=== PATIENT | female | born 1955 | race Caucasian/White ===

== ENCOUNTER 2016-10-29 07:33 | Inpatient (IN) ==
[2016-10-29] MEDS ORDERED: *HR* Midazolam HCl 2 MG/2 ML VIAL ONE ×2 (07:44→09:31)
[2016-10-29] MEDS ORDERED: Verapamil 5 MG/2 ML VIAL ONE (07:45)
[2016-10-29] MEDS ORDERED: *HR* FentaNYL (PF) 100 MCG/2 ML VIAL ONE (07:45)
[2016-10-29] MEDS ORDERED: 0.9 % Sodium Chloride 1,000 ML ONE (07:46)
[2016-10-29] MEDS ORDERED: *HR* Heparin 10,000 UNIT/10 ML VIAL ONE (07:46)
[2016-10-29] MEDS ORDERED: Heparin 1,000 UNITS/500 mL NS 500 ML ONE (07:46)
[2016-10-29] MEDS ORDERED: Nitroglycerin 1,000 MCG/10 ML VIAL IV ONE (07:46)
[2016-10-29] MEDS ORDERED: 0.9 % Sodium Chloride 1,000 ML IVC SCH (08:00)
--- NOTE | 2016-10-29 09:18 | Pre-Sedation Evaluation ---
Pre-sedation evaluation - Pre-sedation checklist Date of procedure: 10/29/16 Procedure: LEFT HEART CATH Recent Vitals: Last Vital Signs Temp 96.3 F L 10/29/16 08:02 Pulse 75 10/29/16 08:02 Resp 18 10/29/16 08:02 BP 150/71 10/29/16 08:02 Pulse Ox 98 10/29/16 08:02 H&P (including ROS) documented in medical record: Yes Previous reaction to sedatives/anesthetics: No Dietary Status: NPO after Midnight Dentition: poor dentition ASA Classification *see protocol: CLASS II-Mild systemic disease Plan of Care: Pt appropriate candidate for procedure/moderate/conscious sedation , Risks/benefits of procedure/sedation discussed w/ patient/family
--- NOTE | 2016-10-29 09:19 | History & Physical Report ---
Date of Encounter: 10/29/16 Time of Encounter: 09:00 24 Hour HP Update - Instructions Instructions: If the History and Physical is less than 30 days old and was completed prior to A.M. admission and or procedure and has NOT been updated on calendar day of procedure please complete this update prior to performing procedure. - Update Patient reports changes in Medical Condition: No Changes in assessment/condition: No Changes in Medication: No Preop tests/diagnostics Reviewed: Yes Surgery Remains Indicated: Yes Consent for Planned Operative Procedure(s) Verified: Yes
[2016-10-29] MEDS ORDERED: Nitroglycerin Spray 4.9 GM BOTTLE ONE (09:30)
--- NOTE | 2016-10-29 11:25 | Invasive Diagnostic Lab Proc ---
Name: Mali Rosales Date of Study: 10/29/2016 Date: 1955 Ht: 63.0in Medical Record#: [id number] Age: 61 Wt: 320.77lb Gender: Female BSA: 2.36 Order #: [id number] BMI: 56.84 Physicians Procedure Physician: Vijay Goins MD, FACC Referring MD: John Lerner CNP Referring MD: Staff Name Position Time In aJnettShannan RN Credentialer 09:19 AM Ginger Gama RT (R) Monitor 09:19 AM Ainsley Villafuerte RT (R) Scrub 09:19 AM Indications Indication Abnormal Test - Stress Procedures Performed Procedure L HRT ARTERY/VENTRICLE ANGIO Pre-Procedure Checklist Informed consent is complete signed and on chart. H\\T\\P is on chart. ID band is on and ID verified with patient. Patient NPO for procedure The procedure was described for the patient and questions were answered. Blood Pressure: 150/71 ECG is on chart. Rhythm: NSR Plan of Care Patient will tolerate the procedure without complications. Adequate level of comfort will be maintained. Hemodynamics will remain stable Patient will recover from procedure without complications. Respiratory function will be maintained. Cardiac rhythm will remain stable. Patient temperature will be maintained. Patient and/or family have verbalized understanding of the procedure. Patient Education Chief Complaint/Reason for Test: Cardiac Cath Developmental Category: Adult (18-64 years) Developmentally Appropriate for Age: Yes Learning Barriers: None Education Needs: Procedure Education Method: Verbal Information Taught: Cardiac Cath Educational Evaluation: Able to repeat information Intravenous Access Time IV Size Location DC'd Fluid/Drip Rate Units RN 08:18 AM Started with 20g 1 1/4" Lt Antecubital 0.9NaCl 50 ml/hr Laxmi Crouch RT Allergies NKDA Vital Signs Time BP (mmHg) HR (bpm) O2 Sat. RR (bpm) LOC 08:19 AM 150 / 71 75 99 % 22 5 = Fully awake and oriented or at pre-proc level 09:20 AM / % 4 = Oriented but drowsy 09:20 AM / % 4 = Oriented but drowsy 09:35 AM / % 4 = Oriented but drowsy 09:17 AM 162 / 78 82 99 % 09:20 AM 158 / 77 82 100 % 43 09:25 AM 152 / 67 77 99 % 26 09:30 AM 159 / 69 78 100 % 28 09:35 AM 150 / 65 80 97 % 20 09:40 AM 137 / 61 80 96 % 20 09:46 AM 158 / 63 81 96 % 10 09:51 AM 162 / 68 78 98 % 21 09:55 AM 157 / 64 78 97 % 18 09:50 AM / % 4 = Oriented but drowsy 10:15 AM 155 / 70 76 96 % 16 4 = Oriented but drowsy 10:30 AM 140 / 63 71 98 % 15 5 = Fully awake and oriented or at pre-proc level 10:45 AM 179 / 83 80 100 % 13 5 = Fully awake and oriented or at pre-proc level 11:00 AM 131 / 63 80 99 % 13 5 = Fully awake and oriented or at pre-proc level 11:15 AM 129 / 62 79 99 % 18 5 = Fully awake and oriented or at pre-proc level Procedural Medications Time Medication Dose Units Method Given By 09:19 AM Oxygen 2 L/min nasal cannula Ginger Gama RT (R) 09:20 AM Versed 2 mg Intravenous BensonhaShannan mitchell RN 09:20 AM Fentanyl 25 mcg Intravenous BensonShannan lomax RN 09:29 AM Versed 1 mg Intravenous BensonhaShannan mitchell RN 09:29 AM Fentanyl 25 mcg Intravenous BenShannan gresham RN 09:30 AM Nitroglycerin 0.04 mcg Sublingual BensonShannan lomax RN 09:30 AM Lidocaine 2% 0.5 ml Subcutaneous Vijay Goins MD, FACC 09:37 AM Versed 1 mg Intravenous Shannan Rowland RN 09:37 AM Fentanyl 25 mcg Intravenous BenShannan gresham RN 09:38 AM Heparin 4000 units Nitroglycerin 200 mcg Verapamil 2.5 mg Intraarterial Vijay Goins MD, FACC 09:47 AM Lidocaine 2% 19 ml Subcutaneous Vijay Goins MD, FACC ASA Classification: CLASS II- Mild systemic disease (i.e. well-controlled diabetes, hypertension, asthma, cigarette smoking) Zena Score Preprocedure Postprocedure Activity 2- Moves 4 extremities sustained head lift Activity 2- Moves 4 extremities sustained head lift Circulation 2- SBP +/= 20 points of pre-anesthetic level Circulation 2- SBP +/= 20 points of pre-anesthetic level Consciousness 2- Awake and alert oriented x 3 Consciousness 2- Awake and alert oriented x 3 O2 Saturation 2- Able to maintain O2 satruation of 92% on room air O2 Saturation 2- Able to maintain O2 satruation of 92% on room air Respiratory 2- Able to deep breathe and cough well Respiratory 2- Able to deep breathe and cough well Total Score 10 Total Score 10 Contrast Agent: Isovue Diagnostic Contrast: 65 ml Total Contrast: 65 ml Fluoro Dose: 318 mGy Procedure Log Time Note Enter By 08:23 AM Risk for fall? Yes, Medications (change in amt./frequency,newly prescribed,potential combinations) [email or web address] 08:23 AM Evidence of mental, physical, or emotional abuse? No [email or web address] 08:23 AM Does patient have suicidal ideations? No [email or web address] 09:12 AM Pt arrived to orthodontic laboratory technician 2 at 09:12 [email or web address] 09:12 AM Physician arrived 09:12 [email or web address] 09:12 AM Matthew and paige completed [email or web address] 09:12 AM Sign in performed according to hospital policy. [email or web address] 09:12 AM Procedure start 09:12 [email or web address] 09:14 AM CathStat 09:15 AM Vitals capture started with the following parameters, Patient=Adult, Interval=5 min, Initial Tapelplv=580 mmHg, Deflation Rate=5 mmHg, Cuff placed on Left Arm 09:17 AM HR=82 bpm, EZZR=042/78 mmhg, SpO2=99.0 %, Comment=NSR 09:19 AM Recorded ECG: HR=79 Condition=Condition 1 09:19 AM Patient charges- Angio tray pack, Navilyst 3mm J, Pulse Oximetry and ACIST tubing and transducer [email or web address] 09:19 AM Patient charges- Angio tray pack, Navilyst 3mm J, Pulse Oximetry and ACIST tubing and transducer [email or web address] 09:19 AM Shannan Rowland RN Position: Credentialer Time in: 09:19 [email or web address] 09:19 AM Ginger Gama RT (R) Position: Monitor Time in: 09:19 [email or web address] 09:19 AM Ainsley Villafuerte RT (R) Position: Scrub Time in: 09:19 [email or web address] 09:20 AM Time: 09:19 Oxygen on at 2 L/min per nasal cannula by Ginger Gama RT (R) [email or web address] 09:20 AM Time: 09:20 Versed 2 mg Intravenous Given by Shannan Rowland RN [email or web address] 09:20 AM Time: 09:20 Fentanyl 25 mcg Intravenous Given by Shannan Rowland RN [email or web address] 09:20 AM Time: 09:20 Patient comfortable and pain free: Yes [email or web address] 09:20 AM Time: 09:20LOC: 4 = Oriented but drowsy [email or web address] 09:20 AM HR=82 bpm, QZQH=708/77 mmhg, DsF9=639.0 %, Resp=43 B/min, Comment=NSR 09:22 AM ASA Class CLASS II- Mild systemic disease (i.e. well-controlled diabetes, hypertension, asthma, cigarette smoking) [email or web address] 09:25 AM HR=77 bpm, HPJK=924/67 mmhg, SpO2=99.0 %, Resp=26 B/min, Comment=NSR 09:27 AM Pressure channel 1 zeroed. 09:29 AM Time out performed according to hospital policy [email or web address] 09:29 AM Time: 09:29 Versed 1 mg Intravenous Given by Shannan Rowland RN [email or web address] 09:30 AM Time: 09:29 Fentanyl 25 mcg Intravenous Given by Shannan Rwoland RN [email or web address] 09:30 AM Time: 09:30 Nitroglycerin 0.04 mcg Sublingual Given by Shannan Rowland RN [email or web address] 09:30 AM Time: 09:30 0.5 ml Lidocaine 2% to right radial Subcutaneous Given by Vijay Goins MD, [facility] [email or web address] 09:30 AM HR=78 bpm, FKDC=760/69 mmhg, LeX4=602.0 %, Resp=28 B/min, Comment=NSR 09:31 AM Unsuccessful access attempt # 1 into the right Radial artery. Manual pressure applied to achieve hemostasis.. [email or web address] 09:33 AM Unsuccessful access attempt # 2 into the right Radial artery. Manual pressure applied to achieve hemostasis.. [email or web address] 09:35 AM Time: 09:20 Patient comfortable and pain free: Yes [email or web address] 09:35 AM Time: 09:20LOC: 4 = Oriented but drowsy [email or web address] 09:35 AM HR=80 bpm, ZLJR=106/65 mmhg, SpO2=97.0 %, Resp=20 B/min, Comment=NSR 09:35 AM Ultrasound used to obtain access. [email or web address] 09:37 AM Time: 09:37 Versed 1 mg Intravenous Given by Shannan Rowland RN [email or web address] 09:37 AM Time: 09:37 Fentanyl 25 mcg Intravenous Given by Shannan Rowland RN [email or web address] 09:38 AM Access obtained by percutaneous puncture. 5Fr 10cm Terumo Glidesheath sheath placed in right Radial artery. [id number] [email or web address] 09:38 AM Time: 09:38 Patient given 4,000 units Heparin, 200 mcg Nitroglycerin, and 2.5 mg Verapamil Intraarterial by Vijay Goins MD, [facility] [email or web address] 09:38 AM 0.035 260cm Navilyst 3mmJ wire [id number] [email or web address] 09:39 AM 5Fr TIG catheter inserted over the wire DN [email or web address] 09:40 AM Wire removed [email or web address] 09:40 AM 0.035 260cm Bentson wire [id number] [email or web address] 09:40 AM HR=80 bpm, BKEQ=509/61 mmhg, SpO2=96.0 %, Resp=20 B/min, Comment=NSR 09:42 AM Catheter removed [email or web address] 09:42 AM Wire removed [email or web address] 09:42 AM Cannot use radial access for patient per Dr. Goins. [email or web address] 09:45 AM Prepping groin for access. [email or web address] 09:45 AM Pressure channel 1 zeroed. 09:46 AM HR=81 bpm, SOKY=402/63 mmhg, SpO2=96.0 %, Resp=10 B/min, Comment=NSR 09:47 AM Time: 09:47 19 ml Lidocaine 2% to right groin Subcutaneous Given by Vijay Goins MD, [facility] [email or web address] 09:48 AM Access obtained by percutaneous puncture. 5Fr 10cm Terumo [place] sheath placed in right Femoral artery. [id number] [email or web address] 09:49 AM 5Fr FL 4 catheter inserted over the wire DN [email or web address] 09:49 AM Pressure channel 1 zeroed. 09:49 AM LCA angiography performed in multiple views. [email or web address] 09:50 AM Time: 09:35 Patient comfortable and pain free: Yes [email or web address] 09:50 AM Time: 09:35LOC: 4 = Oriented but drowsy [email or web address] 09:50 AM Recorded Pressure: Ao, HR=79, Condition=Condition 1 (Aorta) Ao 129/90/109 09:51 AM Recorded Pressure: Ao, HR=79, Condition=Condition 1 (Aorta) Ao 131/94/112 09:51 AM HR=78 bpm, YRPQ=493/68 mmhg, SpO2=98.0 %, Resp=21 B/min, Comment=NSR 09:52 AM Catheter removed [email or web address] 09:53 AM Lesion found in LMCA. Pre Stenosis: 40 Pre ZUNILDA Flow: [email or web address] 09:53 AM 5Fr FR 4 catheter inserted over the wire DNC [email or web address] 09:53 AM Recorded Pressure: Ao, HR=77, Condition=Condition 1 (Aorta) Ao 136/98/116 09:53 AM Coronary Dominance: right [email or web address] 09:54 AM RCA angiography performed in multiple views. [email or web address] 09:54 AM Catheter removed [email or web address] 09:54 AM Lesion found in Mid RCA. Pre Stenosis: 15 Pre ZUNILDA Flow: [email or web address] 09:54 AM Lesion found in Right PDA. Pre Stenosis: 15 Pre ZUNILDA Flow: [email or web address] 09:54 AM 5Fr Pigtail catheter inserted over the wire DN [email or web address] 09:54 AM Catheter selectively placed in left ventricle [email or web address] 09:54 AM Bolus angiogram of left Ventricle complete: 11 ml/sec for a total of 33 mls [email or web address] 09:55 AM Pressure channel 1 zeroed. 09:55 AM Recorded Pressure: LV, HR=78, Condition=Condition 1 (Left Ventricle) LV 137/-7/2 09:55 AM HR=78 bpm, IHOX=341/64 mmhg, SpO2=97.0 %, Resp=18 B/min, Comment=NSR 09:56 AM Recorded Pressure: LV, Ao, HR=77, Condition=Condition 1 (Left Ventricle) LV 71/70/66, (Aorta) Ao 137/68/98 09:57 AM Catheter removed [email or web address] 09:57 AM Bolus angiogram of right Femoral complete: 4 ml/sec for a total of 7 mls [email or web address] 09:59 AM Procedure completed at 09:59 [email or web address] 09:59 AM Sign out completed: Radiation Dose 318.40 mGy Fluoro Time: 1.6 Isovue 370 - 200ml contrast 65 ml given by Vijay Goins MD, [facility]. Complications: NoneCardiac Rehab Consult needed: YesConfirmed administered medications: Yes [email or web address] 09:59 AM Isovue 370 - 200ml,1 Bottle(s) used. [email or web address] 09:59 AM Arterial sheath pulled, Mynx closure device used and was Successful S/N. [email or web address] 09:59 AM Post ECG NSR [email or web address] 10:00 AM Post Blood Pressure 157/64 [email or web address] 10:00 AM Information taught Cardiac Cath and Mynx [email or web address] 10:00 AM Education needs Procedure, Plan of Care, and Disease Process [email or web address] 10:00 AM Learning barriers :None [email or web address] 10:00 AM Education Methods Verbal [email or web address] 10:00 AM Education evaluation Able to repeat information [email or web address] 10:04 AM Site status No bleeding/hematoma - Rt Groin as reported by Ainsley Villafuerte RT (R) at 10:04 [email or web address] 10:04 AM Delay to floor No [email or web address] 10:04 AM Family placed in holding area. [email or web address] 10:04 AM Complications: None [email or web address] 10:05 AM 12 ml air in Vasc Band. [email or web address] 10:05 AM Time: 09:50LOC: 4 = Oriented but drowsy [email or web address] 10:05 AM Time: 09:50 Patient comfortable and pain free: Yes [email or web address] 10:07 AM Report given to Shauna RN Pt taken to Holding room Room #1. 10:07 [email or web address] 10:07 AM Patient out of room: 10:07 [email or web address] 10:16 AM pt resting comfortably in holding room call light within reach family at bedside [email or web address] 10:[address] Goins in to speak with patient and family. [email or web address] 10:[address] Rainey in to speak to family and patient. piper 11:03 AM Patient to be admitted, awaiting bed management for bed assignment [email or web address] 11:17 AM Report given to Dana RN Pt taken to E Room #26. 11:17 piper 11:18 AM Delay to floor No [email or web address] 11:18 AM Complications: None [email or web address] 11:18 AM Patient out of room: 11:18 kwitte Complications Complication None None None Hemodynamics Pressures Site Systolic/A Wave Diastolic/V Wave Mean AO 129 90 109 AO 131 94 112 AO 136 98 116 LV 137 -7 2 LV 71 70 66 AO 137 68 98 Post Procedure Information Blood Pressure: 157/64 mmHg Rhythm: NSR Post procedural instructions were given Surgery consult for CABG Closure Device Time Device Success/Fail 10/29/2016 10:03:00 AM MynxGrip Yes 10/29/2016 10:05:00 AM Mechanical Compression Yes 10/29/2016 11:00:00 PM Site Checks Time Location Status Staff Sheath In? Note 10:04 AM Rt Groin No bleeding/hematoma Araceli Villafuertea RT (R) 10:05 AM Rt Wrist No bleeding/ No Hematoma Christo Ainsley RT (R) 10:15 AM Rt Wrist No bleeding/ No Hematoma Sites, Ainsley RT (R) 10:15 AM Rt Groin No bleeding/ No Hematoma Sites, Ainsley RT (R) 10:30 AM Rt Groin No bleeding/ No Hematoma Shauna Georges RN 10:30 AM Rt Wrist No bleeding/ No Hematoma Shauna Georges RN 10:45 AM Rt Groin No bleeding/ No Hematoma Shauna Georges RN 10:45 AM Rt Wrist No bleeding/ No Hematoma Shauna Georges RN 2ml of air removed from band 11:00 AM Rt Groin No bleeding/ No Hematoma Shauna Georges RN 11:00 AM Rt Wrist No bleeding/ No Hematoma Shauna Georges RN 2ml of air removed from band 11:15 AM Rt Wrist No bleeding/ No Hematoma Russel Irby RN 2 ml air deflated 11:15 AM Rt Groin No bleeding/ No Hematoma Russel Irby RN Pulses Time Site Pre-Procedure Post-Procedure Note 10/29/2016 8:18:00 AM Bilateral DP \\T\\ PT 1+ 10/29/2016 8:19:00 AM Bilateral radial 2+ 10/29/2016 10:15:00 AM Bilateral DP \\T\\ PT 1+ 10/29/2016 10:15:00 AM Bilateral radial 2+ 10/29/2016 10:30:00 AM Bilateral DP \\T\\ PT 1+ 10/29/2016 10:30:00 AM Rt Radial 2+ 10/29/2016 10:45:00 AM Bilateral DP \\T\\ PT 1+ 10/29/2016 10:45:00 AM Rt Radial 2+ 10/29/2016 11:00:00 AM Rt Radial 2+ 10/29/2016 11:00:00 AM Bilateral DP \\T\\ PT 1+ 10/29/2016 11:15:00 AM Rt wrist 2+ 10/29/2016 11:15:00 AM Bilateral DP \\T\\ PT 1+ Updated by Russel Irby RN on 10/29/2016 11:18:53 AM Russel Irby RN electronically signed on 10/29/2016 11:19:45 AM with status of Final
--- NOTE | 2016-10-29 12:11 | Cardiothoracic Consult Note ---
Date of Encounter: 10/29/16 Time of Encounter: 12:07 Assessment and Plan (1) Coronary artery disease Current Visit: Yes Status: Acute The assessment and plan as outlined above was discussed with the patient and/or family members who expressed understanding and agreement. All questions were answered. The patient is a candidate for coronary artery bypass grafting. This would include a RUIZ graft to her LAD. She could also have a saphenous vein graft to her diagonal and/or intermediate branch if they are large enough. She has been on Plavix and we will stop this. I will check an echocardiogram. Risks of surgery include , infection, stroke, bleeding, cardiac tamponade, myocardial infarction, renal or respiratory failure, acute or chronic graft closure, phrenic nerve injury and sternal dehiscence. The procedure, its risks benefits and alternatives were explained and she does wish to proceed. She was admitted to the hospital and will need to stay because of a tight 99% LAD lesion. She is tentatively scheduled for November 05. Qualifiers: Coronary Disease-Associated Artery/Lesion type: [place] artery [place] vs. transplanted heart: [place] heart Associated angina: with stable angina Qualified Code(s): I25.118 - Atherosclerotic heart disease of [place] coronary artery with other forms of angina pectoris - History of Present Illness History of present illness: Ms. Rosales is a 61 year old female History of present illness. Patient is a 61-year-old female who presented with a positive stress test. She did have a myocardial infarction in 2012 and also had stents placed in 2012. Cardiac catheterization done today revealed ejection fraction of 45%. Her right coronary artery was okay. Her LAD diagonal system was 99%. Her intermediate branch was 95%. Her circumflex was okay. There was a 30-40% distal left main lesion. She has been on Plavix and did take a dose today. Past medical history is notable for diabetes on oral agents. She also has a history of hypertension and hyperlipidemia. Social history. She lives outside of [facility] and approximately 1 hour from the hospital. She lives by herself and does not smoke or drink. Family history is positive for coronary artery disease. Review of systems is negative for stroke or TIA. Negative for saphenous vein varicosities or strippings. Past Med Surg Social Fam HX - Past Medical History Medical history: COPD, coronary artery disease, diabetes, hyperlipidemia, hypertension Psychiatric history: no psych history - Past Surgical History Surgical History: cholecystectomy - Social History Smoking Status: Never smoker Smokeless Tobacco Status: No Alcohol use: none Drug use: none Medications and Allergies Amitriptyline [Elavil] 25 mg PO HS 10/29/16 [History] Aspirin [Lo-Dose Aspirin EC] 81 mg PO DAILY 10/29/16 [History] Clopidogrel [Plavix] 75 mg PO DAILY 10/29/16 [History] Enalapril Maleate [Vasotec] 10 mg PO DAILY 10/29/16 [History] GlipiZIDE [Glipizide] 10 mg PO BID 10/29/16 [History] Indapamide [Lozol] 2.5 mg PO DAILY 10/29/16 [History] Linagliptin [Tradjenta] 5 mg PO DAILY 10/29/16 [History] Metformin HCl [Glucophage] 1,000 mg PO BID 10/29/16 [History] Metoprolol [Lopressor] 100 mg PO DAILY 10/29/16 [History] Simvastatin [Zocor] 40 mg PO HS 10/29/16 [History] Allergies No Known Allergies Allergy (Unverified 09/09/16 10:25) All Systems Review: A 10-system review of systems was performed and is negative for pertinent findings except as documented above in the HPI. Physical Examination Vital Signs, Last 4 Hours Temp Pulse Resp BP Pulse Ox 10/29/16 11:37 98.2 F 78 16 152/79 97 She has decreased vision in both eyes due to her diabetes. Her teeth are in poor repair. Neck is supple. No carotid bruits. No thyromegaly. Lungs are clear to percussion and auscultation. Heart is in a normal sinus rhythm. No murmurs, gallops or rubs. Abdomen is benign. She is status post open cholecystectomy. No tenderness, rebound or guarding. No hepatosplenomegaly or masses. Extremities without edema. No saphenous vein varicosities or strippings. Cranial nerves are intact except for decreased vision. Motor and sensory intact. She is awake, alert and oriented 3. Consult Discharge Plan - Plan Referrals: John Lerner, SENIOR CONSTRUCTION ESTIMATOR [Primary Care Provider] -
[2016-10-29] MEDS ORDERED: *HR* Dextrose 50 % in Water (Syg) 50 ML SYRINGE IVP PRN ×2 (12:19→15:11)
[2016-10-29] MEDS ORDERED: Dextrose Gel 15 GM PO PRN ×4 (12:19→15:11)
[2016-10-29] MEDS ORDERED: D5% in Water 1,000 ML IV PRN ×2 (12:19→15:11)
--- NOTE | 2016-10-29 13:04 | Invasive Diagnostic Lab ---
Name: Mali Rosales Date of Study: 10/29/2016 Date: 1955 Ht: 160.0 cm /63.0 in Medical Record#: [id number] Age: 61 Wt: 145.5 kg / 320.77 lb Account/Order#: [id number] Gender: Female BSA: 2.36 Order #: [id number] Fluoro Dose: 318 mGy BMI: 56.84 Procedure Physician: Vijay Goins MD, FACC Referring MD: John Lerner CNP Referring MD: Procedures Performed: LEFT HEART CATH Indications: Abnormal Test - Stress Impressions: There is severe two vessel coronary artery disease. The left ventricle has mildly abnormal contractility EF 45% There is a previous stent in Proximal LAD with 99 in-stent stenosis that was not intervened on. Recommendations: Optimal medical therapy of patient's disease. Aggressive risk factor modification. Suggest patient have Elective coronary artery bypass surgery. History/Risk Factors: COPD stent 2013 Diabetes Hypertension Dyslipidemia Family History of CAD Procedure Access obtained in the right Femoral artery by percutaneous puncture Complications: None, None Contrast: Isovue 65ml Closure Device: MynxGrip, Mechanical Compression Hemodynamics: Pressures Site Systolic/ A Wave Diastolic/ V Wave End Diastolic/ Mean HR AO 129 90 109 79 AO 131 94 112 79 AO 136 98 116 77 LV 137 -7 2 78 LV 71 70 66 75 AO 137 68 98 78 LV Ventriculography Ejection Method: LV Gram Ejection Fraction: 45% Wall Motion: GONZALEZ Anterobasal Normal Anterolateral Mild Hypokinesis Apical: Mild Hypokinesis Inferoapical Normal Inferobasal Normal Coronary Dominance: right Lesion Findings/Interventions * Left Main Coronary Artery There is a distal 30-40% stenosis in the LMCA. * Left Anterior Descending There is a 99% in stent stenosis in the ostial/ Proximal LAD with Robin 1 flow. Diagonal 1 has Robin flow 1. * Circumflex There is a 30% stenosis in the Proximal Circumflex. There is a 20% stenosis in the 1st Marginal. * Ramus There is a 70% stenosis in the Ramus. * Right Coronary Artery There is a 15% stenosis in the Mid RCA. There is a 15% stenosis in the Right PDA Updated by Vijay Goins MD, FACC on 10/29/2016 10:24:14 AM Vijay Goins MD, FACC electronically signed on 10/29/2016 12:59:38 PM with status of Final
[2016-10-29] MEDS ORDERED: Insulin LISPRO 300 UNITS/3 ML VIAL SQ SCH ×2 (16:30→21:00)
[2016-10-29] MEDS: Insulin LISPRO 300 UNITS/3 ML VIAL SQ SCH ×2 (16:38→21:11)
[2016-10-29] MEDS ORDERED: *HR* Metformin 500 MG TABLET PO SCH (21:00)
[2016-10-29] MEDS ORDERED: *HR* GlipiZIDE 5 MG TABLET PO SCH (21:00)
[2016-10-30 06:18] LABS: Hemoglobin A1C 12.4 %
--- NOTE | 2016-10-30 07:17 | Cardiothoracic Progress Note ---
Date of Encounter: 10/30/16 Time of Encounter: 07:15 - Assessment and plan (1) Coronary artery disease Current Visit: Yes Status: Acute The patient will get an echocardiogram today. Today is her first day off of Plavix. Qualifiers: Coronary Disease-Associated Artery/Lesion type: [place] artery [place] vs. transplanted heart: [place] heart Associated angina: with stable angina Qualified Code(s): I25.118 - Atherosclerotic heart disease of [place] coronary artery with other forms of angina pectoris - Subjective Interval history: The patient has had no angina or chest pain. She has no complaints. She has no questions concerning next week's surgery. Vital Signs, Last 4 Hours Pulse Resp BP Pulse Ox 10/30/16 06:58 99 15 155/85 96 Weight 10/28/16 10/29/16 10/30/16 23:59 23:59 23:59 Weight 13.608 kg 139.3 kg Lungs are clear to percussion and auscultation. Heart is in a normal sinus rhythm. Consult Discharge Plan - Plan Referrals: John Lerner, CHEMICAL TESTER [Primary Care Provider] -
--- NOTE | 2016-10-30 08:41 | Cardiology Progress Note ---
Date of Encounter: 10/30/16 Time of Encounter: 08:15 Assessment and Plan (1) Unstable angina Current Visit: Yes Status: Acute Presented on 10/29/16 for elective [facility] for abnormal stress test and unstable angina despite optimal medical therapy. [facility] 10/29/16: severe 2-vessel CAD, EF 35%. 30-40% stenosis LMCA; 99% ISR to pLAD (ZUNILDA flow 1), diagonal 1 has ZUNILDA 1 flow; 30% stenosis pLCx, 20% stenosis OM1; 15% stenosis mRCA, 15% stenosis R PDA. Patient was recommended to proceed with CABG, CT surgery consulted and following --plan for OHS on Thursday to allow for Plavix washout. Last dose of Plavix was on 10/29/16. Recommend inpatient stay due to high-grade pLAD lesion. Has been chest pain free overnight. C access site stable. Echocardiogram completed this AM and pending. Plan for labs in AM. Continue to monitor telemetry. (2) Essential hypertension Current Visit: Yes Status: Acute Control not ideal, will adjust antihypertensives. (3) DMII (diabetes mellitus, type 2) Current Visit: Yes Status: Acute On metformin at home, on hold. Sliding scale insulin ordered as inpatient. Cardiac/diabetic diet. Qualifiers: Diabetes mellitus complication status: without complication Diabetes mellitus ocean transportation intermediary insulin use: without ocean transportation intermediary use Qualified Code(s): E11.9 - Type 2 diabetes mellitus without complications (4) Coronary artery disease Current Visit: Yes Status: Acute see plan above. Qualifiers: Coronary Disease-Associated Artery/Lesion type: [place] artery [place] vs. transplanted heart: [place] heart Associated angina: with stable angina Qualified Code(s): I25.118 - Atherosclerotic heart disease of [place] coronary artery with other forms of angina pectoris Discussion w patient/family: The assessment and plan as outlined above was discussed with the patient and/or family members who expressed understanding and agreement. All questions were answered. Thank you for involving us in the care of your patient. Please call with any questions. The patient will be discussed and reviewed with Dr. Reginaldo Whelan, changes to be made accordingly. Subjective Principal diagnosis: Unstable angina Interval history: Seen and examined. Up to chair eating breakfast. She has no complaints this morning--denies chest pain or discomfort, dyspnea, palpitations, or issues with [facility] access site. Plan for OHS on Thursday with Dr. Rainey to allow for plavix wash-out. Objective Vital Signs, Last 4 Hours Pulse Resp BP Pulse Ox 10/30/16 06:58 99 15 155/85 96 General: Conversant, No Apparent Distress HEENT: Atraumatic, Normocephaly, Mucus Membranes Moist Cardiac: Reg Rate and Rhythm, Normal S1 and S2 Lungs: Normal Breath Sounds Neuro: Alert and responsive Abdomen: Soft Skin: No rashes noted on visualized skin Musculoskeletal: No Chest Wall Tenderness Extremities: No Edema, Normal Pulses Results Active Medications Amitriptyline HCl (Elavil) 25 mg PO HS MIKE Stop: 04/30/17 21:01 Last Admin: 10/29/16 21:09 Dose: 25 mg Aspirin (Aspirin Ec) 81 mg PO DAILY [facility]KE Stop: 05/01/17 09:01 Dextrose/Water (Dextrose 50% (Syg)) 25 ml IVP AD PRN PRN Reason: Hypoglycemia Stop: 04/30/17 15:12 Glucagon (Glucagen) 1 mg IM ONCE PRN PRN Reason: Hypoglycemia Stop: 04/30/17 15:12 Glucose (Gluctose) 15 gm PO ONCE PRN PRN Reason: Hypoglycemia Stop: 04/30/17 15:12 Glucose (Gluctose) 30 gm PO ONCE PRN PRN Reason: Hypoglycemia Stop: 04/30/17 15:12 Dextrose (Dextrose 5%) 1,000 mls @ 100 mls/hr IV CONT PRN PRN Reason: HYPOGLYCEMIA Stop: 04/30/17 15:12 Indapamide (Lozol) 2.5 mg PO DAILY [facility] Stop: 05/01/17 09:01 Insulin Human Lispro (Humalog) 0 units SQ HS MIKE PRN Reason: Protocol Stop: 04/30/17 21:01 Last Admin: 10/29/16 21:11 Dose: 7 units Insulin Human Lispro (Humalog) 0 units SQ TIDAC MIKE PRN Reason: Protocol Stop: 04/30/17 16:31 Last Admin: 10/29/16 16:38 Dose: 16 units Lisinopril (Zestril) 10 mg PO DAILY [facility] Stop: 05/01/17 09:01 Metoprolol Tartrate (Lopressor) 100 mg PO DAILY [facility] Stop: 05/01/17 09:01 Pharmacy Profile Note (Patient Taking Own Medication) 0 each PO DAILY [facility] Stop: 05/01/17 09:01 Simvastatin (Zocor) 40 mg PO HS MIKE PRN Reason: Protocol Stop: 04/30/17 21:01 Last Admin: 10/29/16 21:09 Dose: 40 mg - Imaging and Cardiology Chest Xray: report reviewed Echo: pending Cardiac cath: report reviewed Other Results: 12 hour tele: avg HR=90 SR. - EKG Interpretation EKG results cardiology: personally reviewed Consult Discharge Plan - Plan Referrals: John Lerner, CLOTH FOLDER MACHINE [Primary Care Provider] -
[2016-10-30] MEDS: Aspirin Enteric Coated 81 MG Tablet PO SCH (08:59)
[2016-10-30] MEDS: (Linagliptin [Tradjenta] 5 MG) PO SCH (08:59)
[2016-10-30] MEDS ORDERED: Metoprolol 100 MG TABLET PO SCH ×3 (09:00→21:00)
[2016-10-30] MEDS: Insulin LISPRO 300 UNITS/3 ML VIAL SQ SCH ×4 (09:00→20:52)
--- NOTE | 2016-10-30 10:58 | ECHO - Doppler Report ---
Echocardiogram Name: Mali Rosales Date of Study: 10/30/2016 Date: 1955 Ht: 63.0 in Medical Record#: [id number] Age: 61 Wt: 307.0 lb Gender: Female BSA: 2.32 Order #: [id number] Location: [facility] Room #: [id number] Reading Physician: Paloma Casillas DO Television News Video Editor: Kimberlyn Daily RVT Ordering Physician: Philipp Rainey MD Primary Physician: John Lerner CNP Indications: PRE-OPERATIVE CABG, Coronary artery disease Impressions: LVEF 55%. Normal left ventricular size and systolic function. Indeterminate left venticular diastoic function Normal right ventricular size and function. No significant valvular dysfunction. No pulmonary hypertension. Left Ventricular Wall Motion: Rest Echo Findings All wall segments showed normal motion. Findings: Study Quality * Technically adequate exam. ECG Findings * Sinus tachycardia. Left Ventricle * LVEF 55%. * Normal LV chamber size, wall thickness and function. * Indeterminate diastolic function. Aortic Valve * No aortic regurgitation. * Aortic valve not well visualized. * No aortic stenosis. Mitral Valve * No mitral regurgitation. * Normal mitral valve structure. * No mitral stenosis. Right Ventricle * Normal right ventricular structure and function. Left Atrium * Normal left atrial size. Right Atrium * Normal right atrial size. Interatrial Septum * No evidence of PFO by color Doppler. Tricuspid Valve * Tricuspid valve not well visualized. * No tricuspid regurgitation. Pulmonic Valve * Pulmonic valve is not well visualized. * No pulmonic stenosis. * No pulmonic regurgitation. Pulmonary Artery * Pulmonary artery not well visualized. IVC * Normal IVC dimensions and inspiratory collapse. Pericardium * There is no pericardial effusion present. Aorta * Normally sized aortic root. History Hypertension Diabetes Hypercholesteremia Family History of CAD History of CAD/PTCA Myocardial Infarction 09/2012 a Previous Echo was performed. Measurements: BP: 155/ 85 2D Normal Values RVIDd: 3.10 cm <2.7 cm IVSd: 1.10 cm 0.6 - 1.0 cm LVIDd: 4.90 cm 3.7 - 5.6 cm LVPWd: 1.10 cm 0.6 - 1.1 cm LVIDs: 2.80 cm 1.5 - 3.6 cm AO: 2.30 cm < 4.0 cm LA: 3.70 cm 2.0 - 4.0cm %FS: 42.90 cm >25 % LA volume: 54 Mitral Valve Peak E:.78 m/sec Peak A:1.26 m/sec E/A Ratio:0.6 E/E' Lat Ratio:7.8 E/E' Med Ratio:10.7 Updated by Paloma Casillas on 10/30/2016 10:53:39 AM electronically signed on 10/30/2016 10:54:26 AM with status of Final Wall Motion [place]: 1=Normal, 2=Hypokinesis, 3=Akinesis, 4=Dyskinesis, 5=Aneurysmal, 6=Hyperkinetic, X=Not Visualized (Blank)=Missing
[2016-10-30 11:15] LABS: Basophils # 0.1 K/mcL (0.0-0.2); Basophils % 0.6 %; Eosinophils # 0.1 K/mcL (0.0-0.6); Eosinophils % 0.9 %; Hematocrit 45.3 % (35.3-44.9); Hemoglobin 14.9 g/dL (11.5-15.4); Immature Granulocytes % 0.7 % (0-4); Lymphocytes # 2.3 K/mcL (0.6-4.6); Lymphocytes % 18.3 %; Mean Corpuscular HGB Conc 32.9 g/dL (31.6-35.5); Mean Corpuscular Hemoglobin 29.3 pg (28.0-33.3); Mean Platelet Volume 11.8 fL (9.4-12.4); Monocytes # 0.6 K/mcL (0.0-1.3); Monocytes % 4.5 %; Neutrophils # 9.5 K/mcL (1.6-8.9); Platelet Count 253 K/mcL (140-400); Red Blood Count 5.09 M/mcL (3.82-4.97); Red Cell Distribution Width 13.5 % (11.5-14.5)
[2016-10-30 11:18] LABS: INR 1.1; Prothrombin Time 11.8 Seconds (9.4-12.1)
[2016-10-30 11:26] LABS: BUN/Creatinine Ratio 13 (6-26); Blood Urea Nitrogen 12 mg/dL (7-20); Calcium 9.1 mg/dL (8.6-10.8); Carbon Dioxide 22 mEq/L (19-29); Chloride 102 mEq/L (98-109); Glucose 473 mg/dL (70-99); Osmolality,Calculated 301 (280-300); Potassium 4.2 mEq/L (3.5-4.5); Sodium 135 mEq/L (136-145); eGFR For African Americans > 60 (> 60); eGFR For Non-African Americans > 60 (> 60)
[2016-10-30] MEDS: amLODIPine 5 MG TABLET PO SCH (12:12)
[2016-10-30] MEDS: *HR* Heparin 5,000 UNIT/ML VIAL SQ SCH ×2 (12:12→17:36)
[2016-10-31] MEDS: *HR* Heparin 5,000 UNIT/ML VIAL SQ SCH ×2 (05:48→16:36)
--- NOTE | 2016-10-31 08:41 | Cardiology Progress Note ---
Date of Encounter: 10/31/16 Time of Encounter: 08:30 Assessment and Plan (1) Unstable angina Current Visit: Yes Status: Acute Presented on 10/29/16 for elective [facility] for abnormal stress test and unstable angina despite optimal medical therapy. C 10/29/16: severe 2-vessel CAD, EF 35%. 30-40% stenosis LMCA; 99% ISR to pLAD (ZUNILDA flow 1), diagonal 1 has ZUNILDA 1 flow; 30% stenosis pLCx, 20% stenosis OM1; 15% stenosis mRCA, 15% stenosis R PDA. TTE 10/30/16: EF 55%, no significant valvular dysfunction, normal wall motion. Patient was recommended to proceed with CABG, CT surgery consulted and following --plan for OHS on Thursday to allow for Plavix washout. Last dose of Plavix was on 10/29/16. Recommend inpatient stay due to high-grade pLAD lesion. Has been chest pain free overnight. [facility] access site stable. Continue to monitor telemetry. (2) Essential hypertension Current Visit: Yes Status: Acute Control improved with addition of Norvasc. Metoprolol increased to BID dosing. (3) DMII (diabetes mellitus, type 2) Current Visit: Yes Status: Acute On metformin at home, on hold. Sliding scale insulin ordered as inpatient. A1c=12.4. Cardiac/diabetic diet. Qualifiers: Diabetes mellitus complication status: without complication Diabetes mellitus half-way insulin use: without half-way use Qualified Code(s): E11.9 - Type 2 diabetes mellitus without complications (4) Coronary artery disease Current Visit: Yes Status: Acute see plan above. Qualifiers: Coronary Disease-Associated Artery/Lesion type: [place] artery [place] vs. transplanted heart: [place] heart Associated angina: with stable angina Qualified Code(s): I25.118 - Atherosclerotic heart disease of [place] coronary artery with other forms of angina pectoris Discussion w patient/family: The assessment and plan as outlined above was discussed with the patient and/or family members who expressed understanding and agreement. All questions were answered. Thank you for involving us in the care of your patient. Please call with any questions. The patient will be discussed and reviewed with Dr. Reginaldo Whelan, changes to be made accordingly. Subjective Principal diagnosis: Unstable angina Interval history: Seen and examined. Up to chair eating breakfast. She has no complaints this morning--denies chest pain or discomfort, dyspnea, palpitations, or issues with [facility] access site. Plan for OHS on Thursday with Dr. Rainey to allow for plavix wash-out. All questions and concerns were addressed. Objective Vital Signs, Last 4 Hours Temp Pulse Resp BP 10/31/16 08:29 98.3 F 90 16 131/67 10/31/16 05:00 98.1 F 76 16 124/58 General: Conversant, No Apparent Distress HEENT: Atraumatic, Normocephaly Cardiac: Reg Rate and Rhythm, Normal S1 and S2 Lungs: Normal Breath Sounds, No Wheeze, Rales, Rhonchi Neuro: Alert and responsive, No focal deficits noted Abdomen: Soft, Non-Tender Skin: No rashes noted on visualized skin Musculoskeletal: No Chest Wall Tenderness Extremities: No Edema, Normal Pulses Results 10/30/16 11:02 10/30/16 11:02 Lab Results 10/30/16 10/30/16 10/30/16 11:02 11:02 11:02 WBC 12.7 H Hgb 14.9 Hct 45.3 H Plt Count 253 INR 1.1 APTT 25.0 L Sodium 135 L Potassium 4.2 Chloride 102 Carbon Dioxide 22 BUN 12 Creatinine 0.90 Glucose 473 H Calcium 9.1 Active Medications Amitriptyline HCl (Elavil) 25 mg PO HS [facility] Stop: 04/30/17 21:01 Last Admin: 10/30/16 20:51 Dose: 25 mg Amlodipine Besylate (Norvasc) 5 mg PO DAILY [facility] PRN Reason: Protocol Stop: 05/01/17 09:01 Last Admin: 10/30/16 12:12 Dose: 5 mg Aspirin (Aspirin Ec) 81 mg PO DAILY [facility] Stop: 05/01/17 09:01 Last Admin: 10/30/16 08:59 Dose: 81 mg Dextrose/Water (Dextrose 50% (Syg)) 25 ml IVP AD PRN PRN Reason: Hypoglycemia Stop: 04/30/17 15:12 Glucagon (Glucagen) 1 mg IM ONCE PRN PRN Reason: Hypoglycemia Stop: 04/30/17 15:12 Glucose (Gluctose) 15 gm PO ONCE PRN PRN Reason: Hypoglycemia Stop: 04/30/17 15:12 Glucose (Gluctose) 30 gm PO ONCE PRN PRN Reason: Hypoglycemia Stop: 04/30/17 15:12 Heparin Sodium (Porcine) (Heparin) 5,000 unit SQ Q12HCO MIKE Stop: 05/01/17 10:31 Last Admin: 10/31/16 05:48 Dose: 5,000 unit Dextrose (Dextrose 5%) 1,000 mls @ 100 mls/hr IV CONT PRN PRN Reason: HYPOGLYCEMIA Stop: 04/30/17 15:12 Indapamide (Lozol) 2.5 mg PO DAILY [facility] Stop: 05/01/17 09:01 Last Admin: 10/30/16 08:59 Dose: 2.5 mg Insulin Human Lispro (Humalog) 0 units SQ HS MIKE PRN Reason: Protocol Stop: 04/30/17 21:01 Last Admin: 10/30/16 20:52 Dose: 7 units Insulin Human Lispro (Humalog) 0 units SQ TIDAC [facility]KE PRN Reason: Protocol Stop: 04/30/17 16:31 Last Admin: 10/30/16 16:07 Dose: 16 units Lisinopril (Zestril) 10 mg PO DAILY [facility] Stop: 05/01/17 09:01 Last Admin: 10/30/16 08:59 Dose: 10 mg Metoprolol Tartrate (Lopressor) 75 mg PO BID [facility] Stop: 05/02/17 09:01 Pharmacy Profile Note (Patient Taking Own Medication) 0 each PO DAILY [facility] Stop: 05/01/17 09:01 Last Admin: 10/30/16 08:59 Dose: Not Given Simvastatin (Zocor) 40 mg PO HS MIKE PRN Reason: Protocol Stop: 04/30/17 21:01 Last Admin: 10/30/16 20:51 Dose: 40 mg - Imaging and Cardiology Chest Xray: report reviewed Echo: report reviewed Cardiac cath: report reviewed Other Results: 12 hour tele: avg AS=227 ST. No significant event noted. - EKG Interpretation EKG results cardiology: personally reviewed Consult Discharge Plan - Plan Referrals: John Lerner CNP [Primary Care Provider] - 11/07/16 9:30 am
[2016-10-31] MEDS: (Linagliptin [Tradjenta] 5 MG) PO SCH (09:05)
[2016-10-31] MEDS: Aspirin Enteric Coated 81 MG Tablet PO SCH (09:05)
[2016-10-31] MEDS: amLODIPine 5 MG TABLET PO SCH (09:05)
[2016-10-31] MEDS: Metoprolol 100 MG TABLET PO SCH ×2 (09:05→22:01)
[2016-10-31] MEDS: Insulin LISPRO 300 UNITS/3 ML VIAL SQ SCH ×5 (09:06→21:59)
--- NOTE | 2016-10-31 09:37 | Cardiothoracic Progress Note ---
Date of Encounter: 10/31/16 Time of Encounter: 09:36 - Assessment and plan (1) Coronary artery disease Current Visit: Yes Status: Acute The patient has no questions concerning her surgery. I will ask the software educator to talk to her. Qualifiers: Coronary Disease-Associated Artery/Lesion type: [place] artery [place] vs. transplanted heart: [place] heart Associated angina: with stable angina Qualified Code(s): I25.118 - Atherosclerotic heart disease of [place] coronary artery with other forms of angina pectoris - Subjective Interval history: The patient has no chest pain and no angina. I did discuss her hemoglobin A1c level with her. She states that she does not want to go on insulin shots at home. Vital Signs, Last 4 Hours Temp Pulse Resp BP 10/31/16 08:29 98.3 F 90 16 131/67 Clinical Data, last 8 Hours Output, Urine Amount 0 Weight 10/29/16 10/30/16 10/31/16 23:59 23:59 23:59 Weight 13.608 kg 139.3 kg 141.6 kg Lungs are clear to percussion and auscultation. Heart is in a normal sinus rhythm. - Labs 10/30/16 11:02 10/30/16 11:02 Lab Results, Last 24 hours 10/30/16 10/30/16 10/30/16 11:02 11:02 11:02 WBC 12.7 H Hgb 14.9 Hct 45.3 H Plt Count 253 INR 1.1 APTT 25.0 L Sodium 135 L Potassium 4.2 Chloride 102 Carbon Dioxide 22 BUN 12 Creatinine 0.90 Glucose 473 H Calcium 9.1 Consult Discharge Plan - Plan Referrals: John Lerner CNP [Primary Care Provider] - 11/07/16 9:30 am
--- NOTE | 2016-10-31 13:06 | Internal Medicine Consult Note ---
Date of Encounter: 10/31/16 Time of Encounter: 12:40 - Assessment and Plan (1) DMII (diabetes mellitus, type 2) Current Visit: Yes Status: Chronic Assessment and plan: Uncontrolled blood sugars. Will start patient on long-acting insulin in addition to her current sliding scale coverage. We will also add a low-dose scheduled nutritional coverage and adjust insulin regimen according to response. Will also consult special education paraeducator. A1c is 12.4 Qualifiers: Diabetes mellitus complication status: with hyperglycemia Diabetes mellitus senior care insulin use: without continuum of care manager use Qualified Code(s): E11.65 - Type 2 diabetes mellitus with hyperglycemia (2) Coronary artery disease Current Visit: Yes Status: Acute Assessment and plan: Plan for coronary artery bypass grafting on 11/05/2016. Qualifiers: Coronary Disease-Associated Artery/Lesion type: [place] artery [place] vs. transplanted heart: [place] heart Associated angina: with stable angina Qualified Code(s): I25.118 - Atherosclerotic heart disease of [place] coronary artery with other forms of angina pectoris (3) Essential hypertension Current Visit: Yes Status: Chronic Assessment and plan: Blood pressure is well controlled. Continue metoprolol and lisinopril. Internal Medicine - CN: HPI - Data of Consult Patient: new to practice Requesting Physician: Vijay Goins MD - Consult Narrative Reason for consult: Diabetes management History of present illness: Ms. Rosales is a 61 year old female with history of coronary artery disease, COPD, hypertension and diabetes mellitus type 2 who is currently admitted here after an abnormal stress test and patient underwent cardiac catheterization which showed 99% stenosis in the left anterior descending artery and 95% stenosis in the intermediate branch and also 30-40% distal left main lesion. As such coronary artery bypass graft and has been recommended. Patient is scheduled to undergo this procedure on 11/05/16. Presently patient does not have any chest pain, shortness of breath, fever or chills. No nausea or vomiting. Presently she has been on corrective insulin regimen with high-dose sliding scale. At home she takes metformin, glipizide and linagliptin. Her blood sugars run around 200-300 on most mornings and she is having trouble staying compliant with her medication regimen. She denies any dysuria or polyuria. Past Med Surg Social Fam HX - Past Medical History Attestation: Yes The following information was validated with the patient. Medical history: COPD, coronary artery disease, diabetes, hyperlipidemia, hypertension Psychiatric history: no psych history - Past Surgical History Surgical History: cholecystectomy - Social History Smoking Status: Never smoker Smokeless Tobacco Status: No Alcohol use: none Drug use: none - Family History Father Living Status: Age at : 81 Cause of : cancer Hx Family Cancer: Yes All systems: reviewed and no additional remarkable complaints except as stated Review of systems: A 13 point review of systems was done and was negative except as listed above. Internal Medicine - CN: Meds Amitriptyline [Elavil] 25 mg PO HS 10/29/16 [History] Aspirin [Lo-Dose Aspirin EC] 81 mg PO DAILY 10/29/16 [History] Clopidogrel [Plavix] 75 mg PO DAILY 10/29/16 [History] Enalapril Maleate [Vasotec] 10 mg PO DAILY 10/29/16 [History] GlipiZIDE [Glipizide] 10 mg PO BID 10/29/16 [History] Indapamide [Lozol] 2.5 mg PO DAILY 10/29/16 [History] Linagliptin [Tradjenta] 5 mg PO DAILY 10/29/16 [History] Metformin HCl [Glucophage] 1,000 mg PO BID 10/29/16 [History] Metoprolol [Lopressor] 100 mg PO DAILY 10/29/16 [History] Simvastatin [Zocor] 40 mg PO HS 10/29/16 [History] Allergies No Known Allergies Allergy (Unverified 09/09/16 10:25) Internal Medicine - CN: Exam - Constitutional Vitals: Temp Pulse Resp BP Pulse Ox 98.3 F 77 16 122/66 96 10/31/16 11:55 10/31/16 11:55 10/31/16 11:55 10/31/16 11:55 10/30/16 22:22 General appearance IM: Present: cooperative, A&O X 3, answers questions appropriately - Head Head exam: Present: atraumatic - Eye Eye exam: Present: EOMI, PERRL - ENT ENT exam: Present: mucous membranes moist - Neck Neck exam general surgery: Present: normal inspection, supple, trachea midline - Respiratory Respiratory exam: Present: CTAB. Absent: accessory muscle use, respiratory distress, rhonchi, wheezes - Cardiovascular Cardiovascular exam IM: Present: RRR, +S1, +S2. Absent: systolic murmur - GI/Abdominal GI/Abdominal exam IM: Present: normal bowel sounds, soft, no peritoneal signs. Absent: guarding, hepatomegaly, tenderness - Extremities Exam Extremities exam IM: Absent: pedal edema, tenderness - Neurological Exam Neurological exam: Present: alert, CN II-XII intact, oriented X3, no focal deficits, strengths equal and symetr throughout. Absent: facial droop, speech deficit - Psychiatric Psychiatric exam: Present: normal affect, normal mood - Skin Skin exam IM: Present: intact, normal color Internal Medicine - CN: Reslt - Labs CBC & Chem 7: 10/30/16 11:02 10/30/16 11:02 - ABG Interpretation ABG results: PT/INR, D-dimer PT 11.8 Seconds (9.4-12.1) 10/30/16 11:02 Consult Discharge Plan - Plan Referrals: John Lerner, SQUARE SHEAR OPERATOR [Primary Care Provider] - 11/07/16 9:30 am - Attending Attestation This document has been at least partially created by [employer] recognition technology by Dr. Matthew. Errors in grammar, wording or other phrases may exist. If errors are found after the documentation is signed, they will be addressed individually in the addendum section of this document when appropriate.
[2016-10-31 13:24] LABS: Bilirubin,Urine Negative (Negative); Blood,Urine Negative (Negative); Clarity,Urine Clear (Clear); Color,Urine Yellow (Yellow); Glucose,Urine (UA) >=1000 mg/dL (Normal); Ketones,Urine Trace mg/dL (Negative); Leukocyte Esterase,Urine Negative (Negative); Nitrite,Urine Negative (Negative); Protein,Urine Negative (Neg-Trace); Specific Gravity,Urine > 1.030 (1.010-1.025); Urobilinogen,Urine Normal (Normal)
[2016-10-31] MEDS ORDERED: Ondansetron 4 MG/2 ML VIAL IVP PRN (14:32)
[2016-10-31] MEDS: Nystatin POWDER 30 GM BOTTLE TP SCH ×3 (16:30→22:03)
[2016-10-31] MEDS: Insulin DETEMIR 100 UNIT/ML X5UNITS SQ SCH (22:02)
[2016-11-01] MEDS: *HR* Heparin 5,000 UNIT/ML VIAL SQ SCH ×2 (05:19→18:02)
[2016-11-01] MEDS: (Linagliptin [Tradjenta] 5 MG) PO SCH (08:47)
[2016-11-01] MEDS: Aspirin Enteric Coated 81 MG Tablet PO SCH (08:54)
[2016-11-01] MEDS: amLODIPine 5 MG TABLET PO SCH (08:54)
[2016-11-01] MEDS: Metoprolol 100 MG TABLET PO SCH (08:54)
[2016-11-01] MEDS: Insulin DETEMIR 100 UNIT/ML X5UNITS SQ SCH ×2 (08:54→22:06)
[2016-11-01] MEDS: Insulin LISPRO 300 UNITS/3 ML VIAL SQ SCH ×6 (08:55→22:08)
[2016-11-01] MEDS: Nystatin POWDER 30 GM BOTTLE TP SCH ×3 (08:55→22:07)
--- NOTE | 2016-11-01 09:29 | Cardiothoracic Progress Note ---
Date of Encounter: 11/01/16 Time of Encounter: 09:28 - Assessment and plan (1) Coronary artery disease Current Visit: Yes Status: Acute The patient is scheduled for surgery on Thursday. She has no questions. Qualifiers: Coronary Disease-Associated Artery/Lesion type: [place] artery [place] vs. transplanted heart: [place] heart Associated angina: with stable angina Qualified Code(s): I25.118 - Atherosclerotic heart disease of [place] coronary artery with other forms of angina pectoris - Subjective Interval history: The patient has had no angina and no chest pain. She has no questions concerning her upcoming surgery. Vital Signs, Last 4 Hours Temp Pulse Resp BP Pulse Ox 11/01/16 08:16 97.8 F 90 18 131/76 95 Clinical Data, last 8 Hours Output, Urine Amount 0 Weight 10/30/16 10/31/16 11/01/16 23:59 23:59 23:59 Weight 139.3 kg 141.6 kg 145.1 kg Lungs are clear to percussion and auscultation. Heart is in a regular rate and rhythm. - Labs 10/30/16 11:02 10/30/16 11:02 Consult Discharge Plan - Plan Referrals: John Lerner ALLERGY AND IMMUNOLOGY CHIEF [Primary Care Provider] - 11/07/16 9:30 am
--- NOTE | 2016-11-01 10:13 | Cardiology Progress Note ---
Date of Encounter: 11/01/16 Time of Encounter: 10:00 Assessment and Plan (1) Unstable angina Current Visit: Yes Status: Acute Presented on 10/29/16 for elective [facility] for abnormal stress test and unstable angina despite optimal medical therapy. [facility] 10/29/16: severe 2-vessel CAD, EF 35%. 30-40% stenosis LMCA; 99% ISR to pLAD (ZUNILDA flow 1), diagonal 1 has ZUNILDA 1 flow; 30% stenosis pLCx, 20% stenosis OM1; 15% stenosis mRCA, 15% stenosis R PDA. TTE 10/30/16: EF 55%, no significant valvular dysfunction, normal wall motion. Patient was recommended to proceed with CABG, CT surgery consulted and following --plan for OHS on Thursday to allow for Plavix washout. Last dose of Plavix was on 10/29/16. Recommend inpatient stay due to high-grade pLAD lesion. Has been chest pain free overnight. [facility] access site stable. Asa, statin, and betablocker. On Heparin SC for DVT prophylasix. Continue to monitor telemetry. (2) Essential hypertension Current Visit: Yes Status: Chronic Controlled with medication adjustments. Continue to monitor. (3) DMII (diabetes mellitus, type 2) Current Visit: Yes Status: Chronic On metformin at home, on hold. Sliding scale insulin ordered as inpatient. A1c=12.4. Cardiac/diabetic diet. Hospitalist Service consulted on 10/31/16 due to uncontrolled blood glucose despite high dose sliding scale. Ludwin added, compensator worker consulted. Appreciate recommendations. Qualifiers: Diabetes mellitus complication status: with hyperglycemia Diabetes mellitus terminal worker insulin use: without shelter use Qualified Code(s): E11.65 - Type 2 diabetes mellitus with hyperglycemia (4) Coronary artery disease Current Visit: Yes Status: Acute plan as above. Qualifiers: Coronary Disease-Associated Artery/Lesion type: [place] artery [place] vs. transplanted heart: [place] heart Associated angina: with stable angina Qualified Code(s): I25.118 - Atherosclerotic heart disease of [place] coronary artery with other forms of angina pectoris Discussion w patient/family: The assessment and plan as outlined above was discussed with the patient and/or family members who expressed understanding and agreement. All questions were answered. Thank you for involving us in the care of your patient. Please call with any questions. The patient will be discussed and reviewed with Dr. Reginaldo Whelan, changes to be made accordingly. Subjective Principal diagnosis: Unstable angina Interval history: Seen and examined. Up to chair this AM She has no complaints this morning-- denies chest pain or discomfort, dyspnea, palpitations, or issues with [facility] access site. Denies dysuria. Plan for OHS on Thursday with Dr. Rainey to allow for plavix wash-out. All questions and concerns were addressed. Objective Vital Signs, Last 4 Hours Temp Pulse Resp BP Pulse Ox 11/01/16 08:16 97.8 F 90 18 131/76 95 General: Conversant, No Apparent Distress HEENT: Atraumatic, Normocephaly Cardiac: Reg Rate and Rhythm, Normal S1 and S2 Lungs: Normal Breath Sounds Neuro: Alert and responsive Abdomen: Soft Skin: No rashes noted on visualized skin Musculoskeletal: No Chest Wall Tenderness Extremities: No Edema, Normal Pulses Results 10/30/16 11:02 10/30/16 11:02 - Imaging and Cardiology Echo: report reviewed Cardiac cath: report reviewed Other Results: 12 hour tele: avg HR=74 SR. No significant event noted. - EKG Interpretation EKG results cardiology: personally reviewed Consult Discharge Plan - Plan Referrals: John Lerner, TASSEL MAKER [Primary Care Provider] - 11/07/16 9:30 am
--- NOTE | 2016-11-01 17:14 | Internal Med Progress Note ---
Date of Encounter: 11/01/16 Time of Encounter: 17:11 - Assessment and plan (1) DMII (diabetes mellitus, type 2) Current Visit: Yes Status: Chronic Assessment and plan: Hospitalist service consulted for diabetes management The patient has a hemoglobin A1c of 12.4, we will hold Tradjenta during her hospitalization May resume glipizide and metformin Started on Levemir 15 units twice a day on 10/31/2016 , we will keep the same dose for now is we will see the full effect within the next 3 days also was a started on 8 units 3 times a day of lispro plus a sliding scale Increase lispro up to 10 units 3 times a day plus a sliding scale Qualifiers: Diabetes mellitus complication status: with hyperglycemia Diabetes mellitus senior living insulin use: without manager intermediate use Qualified Code(s): E11.65 - Type 2 diabetes mellitus with hyperglycemia (2) Unstable angina Current Visit: Yes Status: Acute Assessment and plan: Presented on 10/29/16 for elective [facility] for abnormal stress test and unstable angina despite optimal medical therapy. [facility] 10/29/16: severe 2-vessel CAD, EF 35%. 30-40% stenosis LMCA; 99% ISR to pLAD (ZUNILDA flow 1), diagonal 1 has ZUNILDA 1 flow; 30% stenosis pLCx, 20% stenosis OM1; 15% stenosis mRCA, 15% stenosis R PDA. TTE 10/30/16: EF 55%, no significant valvular dysfunction, normal wall motion. Patient was recommended to proceed with CABG, CT surgery consulted and following --plan for OHS on Thursday to allow for Plavix washout. Last dose of Plavix was on 10/29/16. Recommend inpatient stay due to high-grade pLAD lesion (3) Coronary artery disease Current Visit: Yes Status: Acute Qualifiers: Coronary Disease-Associated Artery/Lesion type: [place] artery [place] vs. transplanted heart: [place] heart Associated angina: with stable angina Qualified Code(s): I25.118 - Atherosclerotic heart disease of [place] coronary artery with other forms of angina pectoris (4) Essential hypertension Current Visit: Yes Status: Chronic Assessment and plan: As per cardiology management - Subjective Interval history: Glucoses still above 200 and up to 300s, denies any chest pain, shortness of breath, no abdominal pain, no dysuria. No fevers - Constitutional Vitals: Temp Pulse Resp BP Pulse Ox 97.8 F 90 18 131/76 95 11/01/16 08:16 11/01/16 08:16 11/01/16 08:16 11/01/16 08:16 11/01/16 08:16 General appearance: Present: cooperative, A&O X 3, morbidly obese, answers questions appropriately - Head Head exam: Present: atraumatic, normocephalic - Eye Eye exam: Present: PERRL, conjuntiva pink, sclera anicteric Pupils: Present: PERRL - Neck Neck exam general surgery: Present: supple, trachea midline. Absent: lymphadenopathy - Respiratory Respiratory exam: Present: CTAB. Absent: accessory muscle use, rales, rhonchi, wheezes - Cardiovascular Cardiovascular exam: Present: RRR, +S1, +S2. Absent: diastolic murmur, gallop, rubs, systolic murmur - GI/Abdominal GI/Abdominal exam: Present: normal bowel sounds, soft, no peritoneal signs. Absent: distended, tenderness - Extremities Exam Extremities exam: Present: warm, radial pulses palpable and symetrical. Absent : calf tenderness, cyanotic, pedal edema - Neurological Exam Neurological exam: Present: CN II-XII intact, oriented X3, no focal deficits. Absent: pronater drift, facial droop, speech deficit - Skin Skin exam: Present: dry, intact Internal Medicine: Result - Labs CBC & Chem 7: 10/30/16 11:02 10/30/16 11:02 - ABG Interpretation ABG results: PT/INR, D-dimer PT 11.8 Seconds (9.4-12.1) 10/30/16 11:02 Consult Discharge Plan - Plan Referrals: John Lerner, YARD MOTOR OPERATOR [Primary Care Provider] - 11/07/16 9:30 am
[2016-11-01] MEDS: *HR* GlipiZIDE 5 MG TABLET PO SCH (18:01)
[2016-11-01] MEDS: *HR* Metformin 500 MG TABLET PO SCH (18:01)
[2016-11-02 00:47] LABS: Basophils # 0.1 K/mcL (0.0-0.2); Basophils % 0.6 %; Eosinophils # 0.2 K/mcL (0.0-0.6); Eosinophils % 1.6 %; Hematocrit 42.4 % (35.3-44.9); Hemoglobin 13.7 g/dL (11.5-15.4); Immature Granulocytes % 0.3 % (0-4); Lymphocytes % 35.6 %; Mean Corpuscular HGB Conc 32.3 g/dL (31.6-35.5); Mean Corpuscular Hemoglobin 29.3 pg (28.0-33.3); Mean Corpuscular Volume 90.8 fL (83.0-100.0); Monocytes # 0.6 K/mcL (0.0-1.3); Monocytes % 5.6 %; Neutrophils # 6.3 K/mcL (1.6-8.9); Platelet Count 236 K/mcL (140-400); Red Blood Count 4.67 M/mcL (3.82-4.97); Red Cell Distribution Width 13.7 % (11.5-14.5); Segmented Neutrophils % 56.3 %
[2016-11-02 00:53] LABS: Prothrombin Time 10.9 Seconds (9.4-12.1)
[2016-11-02 01:12] LABS: BUN/Creatinine Ratio 20 (6-26); Blood Urea Nitrogen 16 mg/dL (7-20); Carbon Dioxide 25 mEq/L (19-29); Chloride 105 mEq/L (98-109); Glucose 136 mg/dL (70-99); Osmolality,Calculated 295 (280-300); Potassium 3.6 mEq/L (3.5-4.5); Sodium 141 mEq/L (136-145); eGFR For African Americans > 60 (> 60); eGFR For Non-African Americans > 60 (> 60)
[2016-11-02] MEDS: *HR* Heparin 5,000 UNIT/ML VIAL SQ SCH ×2 (06:03→17:04)
--- NOTE | 2016-11-02 09:24 | Cardiothoracic Progress Note ---
Date of Encounter: 11/02/16 Time of Encounter: 09:22 - Assessment and plan (1) Coronary artery disease Current Visit: Yes Status: Acute The patient is scheduled for open heart surgery on Thursday. She has no questions. Operative consent was obtained. Qualifiers: Coronary Disease-Associated Artery/Lesion type: [place] artery [place] vs. transplanted heart: [place] heart Associated angina: with stable angina Qualified Code(s): I25.118 - Atherosclerotic heart disease of [place] coronary artery with other forms of angina pectoris - Subjective Interval history: The patient has no angina and no chest pain. Vital Signs, Last 4 Hours Temp Pulse Resp BP Pulse Ox 11/02/16 07:53 99 11/02/16 07:42 98.0 F 80 18 119/54 99 Weight 10/31/16 11/01/16 11/02/16 23:59 23:59 23:59 Weight 141.6 kg 145.1 kg 143.4 kg Lungs are clear to percussion and auscultation. Heart is in a normal sinus rhythm. - Labs 11/02/16 00:38 11/02/16 00:38 Lab Results, Last 24 hours 11/02/16 11/02/16 11/02/16 00:38 00:38 00:38 WBC 11.2 H Hgb 13.7 Hct 42.4 Plt Count 236 INR 1.0 APTT 26.0 Sodium 141 Potassium 3.6 Chloride 105 Carbon Dioxide 25 BUN 16 Creatinine 0.80 Glucose 136 H Calcium 9.0 Consult Discharge Plan - Plan Referrals: John Lerner CNP [Primary Care Provider] - 11/07/16 9:30 am
--- NOTE | 2016-11-02 09:35 | Cardiology Progress Note ---
Date of Encounter: 11/02/16 Time of Encounter: 09:20 Assessment and Plan (1) Unstable angina Current Visit: Yes Status: Acute Presented on 10/29/16 for elective [facility] for abnormal stress test and unstable angina despite optimal medical therapy. [facility] 10/29/16: severe 2-vessel CAD, EF 35%. 30-40% stenosis LMCA; 99% ISR to pLAD (ZUNILDA flow 1), diagonal 1 has ZUNILDA 1 flow; 30% stenosis pLCx, 20% stenosis OM1; 15% stenosis mRCA, 15% stenosis R PDA. TTE 10/30/16: EF 55%, no significant valvular dysfunction, normal wall motion. Patient was recommended to proceed with CABG, CT surgery consulted and following --plan for OHS on Thursday to allow for Plavix washout. Last dose of Plavix was on 10/29/16. Recommend inpatient stay due to high-grade pLAD lesion. Has been chest pain free overnight. [facility] access site stable. Asa, statin, and betablocker. On Heparin SC for DVT prophylasix. Continue to monitor telemetry. (2) Essential hypertension Current Visit: Yes Status: Chronic Controlled with medication adjustments. Continue to monitor. (3) DMII (diabetes mellitus, type 2) Current Visit: Yes Status: Chronic On metformin at home, on hold. Sliding scale insulin ordered as inpatient. A1c=12.4. Cardiac/diabetic diet. Hospitalist Service consulted on 10/31/16 due to uncontrolled blood glucose despite high dose sliding scale. Ludwin added, supervisor accounts receivable consulted. Appreciate recommendations. Qualifiers: Diabetes mellitus complication status: with hyperglycemia Diabetes mellitus roasterman insulin use: without skilled nursing use Qualified Code(s): E11.65 - Type 2 diabetes mellitus with hyperglycemia (4) Coronary artery disease Current Visit: Yes Status: Acute plan as stated above. Qualifiers: Coronary Disease-Associated Artery/Lesion type: [place] artery [place] vs. transplanted heart: [place] heart Associated angina: with stable angina Qualified Code(s): I25.118 - Atherosclerotic heart disease of [place] coronary artery with other forms of angina pectoris Discussion w patient/family: The assessment and plan as outlined above was discussed with the patient and/or family members who expressed understanding and agreement. All questions were answered. Thank you for involving us in the care of your patient. Please call with any questions. The patient will be discussed and reviewed with Dr. Reginaldo Whelan, changes to be made accordingly. Subjective Principal diagnosis: Unstable angina Interval history: Seen and examined. Up to chair this AM She has no complaints this morning-- denies chest pain or discomfort, dyspnea, palpitations, or issues with [facility] access site. Denies dysuria. Plan for OHS on Thursday with Dr. Rainey to allow for plavix wash-out. All questions and concerns were addressed. Objective Vital Signs, Last 4 Hours Temp Pulse Resp BP Pulse Ox 11/02/16 07:53 99 11/02/16 07:42 98.0 F 80 18 119/54 99 General: Conversant, No Apparent Distress HEENT: Atraumatic, Normocephaly, Mucus Membranes Moist Cardiac: Reg Rate and Rhythm, Normal S1 and S2 Lungs: Normal Breath Sounds Neuro: Alert and responsive Abdomen: Soft Skin: No rashes noted on visualized skin Musculoskeletal: No Chest Wall Tenderness Extremities: No Edema, Normal Pulses Results 11/02/16 00:38 11/02/16 00:38 Lab Results 11/02/16 11/02/16 11/02/16 00:38 00:38 00:38 WBC 11.2 H Hgb 13.7 Hct 42.4 Plt Count 236 INR 1.0 APTT 26.0 Sodium 141 Potassium 3.6 Chloride 105 Carbon Dioxide 25 BUN 16 Creatinine 0.80 Glucose 136 H Calcium 9.0 - Imaging and Cardiology Chest Xray: report reviewed Echo: report reviewed Cardiac cath: report reviewed Other Results: Telemetry: avg HR=77 SR. No significant event noted. - EKG Interpretation EKG results cardiology: personally reviewed Consult Discharge Plan - Plan Referrals: John Lerner CNP [Primary Care Provider] - 11/07/16 9:30 am
[2016-11-02] MEDS: (Linagliptin [Tradjenta] 5 MG) PO SCH (09:52)
[2016-11-02] MEDS: Insulin LISPRO 300 UNITS/3 ML VIAL SQ SCH ×7 (09:52→21:43)
[2016-11-02] MEDS: Aspirin Enteric Coated 81 MG Tablet PO SCH (09:59)
[2016-11-02] MEDS: amLODIPine 5 MG TABLET PO SCH (09:59)
[2016-11-02] MEDS: *HR* GlipiZIDE 5 MG TABLET PO SCH ×2 (10:00→16:23)
[2016-11-02] MEDS: Insulin DETEMIR 100 UNIT/ML X5UNITS SQ SCH ×2 (10:00→21:35)
[2016-11-02] MEDS: Nystatin POWDER 30 GM BOTTLE TP SCH ×3 (10:00→21:43)
[2016-11-02] MEDS ORDERED: Naloxone 0.4 MG/ML INJ IVP PRN (14:41)
--- NOTE | 2016-11-02 14:45 | Internal Med Progress Note ---
Date of Encounter: 11/02/16 Time of Encounter: 14:43 - Assessment and plan (1) DMII (diabetes mellitus, type 2) Current Visit: Yes Status: Chronic Assessment and plan: Hospitalist service consulted for diabetes management The patient has a hemoglobin A1c of 12.4, hold Tradjenta during her hospitalization Resumed glipizide and metformin ( may hold the day prior to surgery Started on Levemir 15 units twice a day on 10/31/2016 , we will keep the same dose for now is we will see the full effect within the next 2 days also was a started on 8 units 3 times a day of lispro plus a sliding scale Increased lispro up to 10 units 3 times a day plus a sliding scale Qualifiers: Diabetes mellitus complication status: with hyperglycemia Diabetes mellitus inside technical sales representative insulin use: without inside technical sales representative use Qualified Code(s): E11.65 - Type 2 diabetes mellitus with hyperglycemia (2) Unstable angina Current Visit: Yes Status: Acute Assessment and plan: Presented on 10/29/16 for elective [facility] for abnormal stress test and unstable angina despite optimal medical therapy. [facility] 10/29/16: severe 2-vessel CAD, EF 35%. 30-40% stenosis LMCA; 99% ISR to pLAD (ZUINLDA flow 1), diagonal 1 has ZUNILDA 1 flow; 30% stenosis pLCx, 20% stenosis OM1; 15% stenosis mRCA, 15% stenosis R PDA. TTE 10/30/16: EF 55%, no significant valvular dysfunction, normal wall motion. Patient was recommended to proceed with CABG, CT surgery consulted and following --plan for OHS on Thursday to allow for Plavix washout. Last dose of Plavix was on 10/29/16. Recommend inpatient stay due to high-grade pLAD lesion (3) Coronary artery disease Current Visit: Yes Status: Acute Qualifiers: Coronary Disease-Associated Artery/Lesion type: [place] artery [place] vs. transplanted heart: [place] heart Associated angina: with stable angina Qualified Code(s): I25.118 - Atherosclerotic heart disease of [place] coronary artery with other forms of angina pectoris (4) Essential hypertension Current Visit: Yes Status: Chronic Assessment and plan: As per cardiology management - Time Spent With Patient Greater than 35 minutes - Subjective Interval history: Glucose was 138 in am and 270 at noon, complains of left shoulder pain , denies any chest pain, shortness of breath, no abdominal pain, no dysuria. No fevers - Constitutional Vitals: Temp Pulse Resp BP Pulse Ox 98.0 F 80 18 119/54 99 11/02/16 07:42 11/02/16 07:42 11/02/16 07:42 11/02/16 07:42 11/02/16 07:53 General appearance: Present: cooperative, A&O X 3, morbidly obese, answers questions appropriately - Head Head exam: Present: atraumatic, normocephalic - Eye Eye exam: Present: PERRL, conjuntiva pink, sclera anicteric Pupils: Present: PERRL - Neck Neck exam general surgery: Present: supple, trachea midline. Absent: lymphadenopathy - Respiratory Respiratory exam: Present: CTAB. Absent: accessory muscle use, rales, rhonchi, wheezes - Cardiovascular Cardiovascular exam: Present: RRR, +S1, +S2. Absent: diastolic murmur, gallop, rubs, systolic murmur - GI/Abdominal GI/Abdominal exam: Present: normal bowel sounds, soft, no peritoneal signs. Absent: distended, tenderness - Extremities Exam Extremities exam: Present: warm, radial pulses palpable and symetrical. Absent : calf tenderness, cyanotic, pedal edema - Neurological Exam Neurological exam: Present: CN II-XII intact, oriented X3, no focal deficits. Absent: pronater drift, facial droop, speech deficit - Skin Skin exam: Present: dry, intact Internal Medicine: Result - Labs CBC & Chem 7: 11/02/16 00:38 11/02/16 00:38 Labs: Short CBC 11/02/16 Range/Units 00:38 WBC 11.2 H (4.3-11.1) K/mcL Hgb 13.7 (11.5-15.4) g/dL Hct 42.4 (35.3-44.9) % Plt Count 236 (140-400) K/mcL Neutrophils # 6.3 (1.6-8.9) K/mcL BMP 11/02/16 00:38 Sodium 141 Potassium 3.6 Chloride 105 Carbon Dioxide 25 BUN 16 Creatinine 0.80 Glucose 136 H Calcium 9.0 - ABG Interpretation ABG results: PT/INR, D-dimer PT 10.9 Seconds (9.4-12.1) 11/02/16 00:38 Consult Discharge Plan - Plan Referrals: John Lerner, KIT [Primary Care Provider] - 11/07/16 9:30 am
[2016-11-02] MEDS: *HR* HYDROcodone/Acet 5/325 mg TABLET PO PRN ×2 (15:31→21:38)
[2016-11-02] MEDS: *HR* OxyCODONE Immed Rel 5 MG TABLET PO PRN (18:33)
[2016-11-03] MEDS: *HR* Heparin 5,000 UNIT/ML VIAL SQ SCH ×2 (06:01→17:02)
[2016-11-03] MEDS: Insulin LISPRO 300 UNITS/3 ML VIAL SQ SCH ×7 (08:26→21:31)
--- NOTE | 2016-11-03 08:30 | Cardiology Progress Note ---
Date of Encounter: 11/03/16 Time of Encounter: 08:30 Assessment and Plan (1) Unstable angina Current Visit: Yes Status: Acute Presented on 10/29/16 for elective [facility] for abnormal stress test and unstable angina despite optimal medical therapy. [facility] 10/29/16: severe 2-vessel CAD, EF 35%. 30-40% stenosis LMCA; 99% ISR to pLAD (ZUNILDA flow 1), diagonal 1 has ZUNILDA 1 flow; 30% stenosis pLCx, 20% stenosis OM1; 15% stenosis mRCA, 15% stenosis R PDA. TTE 10/30/16: EF 55%, no significant valvular dysfunction, normal wall motion. Patient was recommended to proceed with CABG, CT surgery consulted and following --plan for OHS on Thursday to allow for Plavix washout. Last dose of Plavix was on 10/29/16. Recommend inpatient stay due to high-grade pLAD lesion. Has been chest pain free overnight. [facility] access site stable. Asa, statin, and betablocker. On Heparin SC for DVT prophylasix. Continue to monitor telemetry. (2) Essential hypertension Current Visit: Yes Status: Chronic Controlled with medication adjustments. Continue to monitor. (3) DMII (diabetes mellitus, type 2) Current Visit: Yes Status: Chronic On metformin at home, on hold. Sliding scale insulin ordered as inpatient. A1c=12.4. Cardiac/diabetic diet. Hospitalist Service consulted on 10/31/16 due to uncontrolled blood glucose despite high dose sliding scale. Ludwin added, life educator consulted. Appreciate recommendations. Qualifiers: Qualified Code(s): E11.65 - Type 2 diabetes mellitus with hyperglycemia (4) Coronary artery disease Current Visit: Yes Status: Acute plan as stated above. Qualifiers: Qualified Code(s): I25.118 - Atherosclerotic heart disease of [place] coronary artery with other forms of angina pectoris Discussion w patient/family: The assessment and plan as outlined above was discussed with the patient and/or family members who expressed understanding and agreement. All questions were answered. Thank you for involving us in the care of your patient. Please call with any questions. The patient will be discussed and reviewed with Dr. Webster, changes to be made accordingly. Subjective Principal diagnosis: Unstable angina Interval history: Seen and examined. Up to chair this AM She has no complaints this morning-- denies chest pain or discomfort, dyspnea, palpitations, or issues with [facility] access site. Denies dysuria. Plan for OHS on Thursday with Dr. Rainey to allow for plavix wash-out. All questions and concerns were addressed. Objective Vital Signs, Last 4 Hours Temp Pulse Resp BP Pulse Ox 11/03/16 07:36 98 F 78 16 127/58 98 11/03/16 04:46 97.8 F 70 48 117/61 99 General: Conversant, No Apparent Distress HEENT: Atraumatic, Normocephaly, Mucus Membranes Moist Cardiac: Reg Rate and Rhythm, Normal S1 and S2 Lungs: Normal Breath Sounds Neuro: Alert and responsive Abdomen: Soft Skin: No rashes noted on visualized skin Musculoskeletal: No Chest Wall Tenderness Extremities: No Edema, Normal Pulses Results 11/02/16 00:38 11/02/16 00:38 Active Medications Acetaminophen (Tylenol) 500 mg PO Q6HR PRN PRN Reason: Mild Pain Stop: 05/02/17 14:32 Last Admin: 10/31/16 15:51 Dose: 500 mg Acetaminophen/Hydrocodone Bitart ([place] 5-325 Mg) 1 tab PO Q6HR PRN PRN Reason: Moderate Pain Stop: 05/04/17 14:42 Last Admin: 11/02/16 21:38 Dose: 1 tab Amitriptyline HCl (Elavil) 25 mg PO HS MIKE Stop: 04/30/17 21:01 Last Admin: 11/02/16 21:35 Dose: 25 mg Amlodipine Besylate (Norvasc) 5 mg PO DAILY MIKE PRN Reason: Protocol Stop: 05/01/17 09:01 Last Admin: 11/03/16 08:33 Dose: 5 mg Aspirin (Aspirin Ec) 81 mg PO DAILY MIKE Stop: 05/01/17 09:01 Last Admin: 11/03/16 08:33 Dose: 81 mg Chlorhexidine Gluconate (Chlorhexidine Rinse) 15 ml MM BID MIKE Stop: 11/05/16 09:01 Dextrose/Water (Dextrose 50% (Syg)) 25 ml IVP AD PRN PRN Reason: Hypoglycemia Stop: 04/30/17 15:12 Glipizide (Glucotrol) 10 mg PO BIDAC MIKE Stop: 05/03/17 17:18 Last Admin: 11/03/16 08:34 Dose: 10 mg Glucagon (Glucagen) 1 mg IM ONCE PRN PRN Reason: Hypoglycemia Stop: 04/30/17 15:12 Glucose (Gluctose) 15 gm PO ONCE PRN PRN Reason: Hypoglycemia Stop: 04/30/17 15:12 Glucose (Gluctose) 30 gm PO ONCE PRN PRN Reason: Hypoglycemia Stop: 04/30/17 15:12 Heparin Sodium (Porcine) (Heparin) 5,000 unit SQ Q12HCO [facility] Stop: 05/01/17 10:31 Last Admin: 11/03/16 06:01 Dose: 5,000 unit Dextrose (Dextrose 5%) 1,000 mls @ 100 mls/hr IV CONT PRN PRN Reason: HYPOGLYCEMIA Stop: 04/30/17 15:12 Cefazolin Sodium 3,000 mg/ (Dextrose) 100 mls @ 200 mls/hr IVPB PREOP ONE PRN Reason: Protocol Stop: 11/05/16 00:30 Indapamide (Lozol) 2.5 mg PO DAILY [facility] Stop: 05/01/17 09:01 Last Admin: 11/03/16 08:33 Dose: 2.5 mg Insulin Detemir (Levemir) 15 unit SQ BID [facility] Stop: 05/02/17 21:01 Last Admin: 11/03/16 08:34 Dose: 15 unit Insulin Human Lispro (Humalog) 0 units SQ HS [facility] PRN Reason: Protocol Stop: 04/30/17 21:01 Last Admin: 11/02/16 21:43 Dose: Not Given Insulin Human Lispro (Humalog) 0 units SQ TIDAC [facility] PRN Reason: Protocol Stop: 04/30/17 16:31 Last Admin: 11/03/16 08:26 Dose: Not Given Insulin Human Lispro (Humalog) 10 units SQ TIDWM [facility] Stop: 05/03/17 17:08 Last Admin: 11/03/16 08:26 Dose: Not Given Metoprolol Tartrate (Lopressor) 75 mg PO BID [facility] Stop: 05/03/17 21:46 Last Admin: 11/03/16 08:34 Dose: 75 mg Naloxone HCl (Narcan) 0.4 mg IVP Q2MIN PRN PRN Reason: SEE COMMENTS Stop: 05/04/17 14:42 Nystatin (Nystop) 1 appl TP TID [facility] Stop: 05/02/17 12:01 Last Admin: 11/03/16 08:34 Dose: Not Given Ondansetron HCl (Zofran) 4 mg IVP Q6HR PRN; Protocol PRN Reason: Nausea And Vomiting Stop: 05/02/17 14:33 Oxycodone HCl (Roxicodone) 10 mg PO Q6HR PRN PRN Reason: Severe Pain Stop: 05/04/17 14:42 Last Admin: 11/03/16 08:34 Dose: 10 mg Pharmacy Profile Note (Patient Taking Own Medication) 0 each PO DAILY MIKE Stop: 05/01/17 09:01 Last Admin: 11/03/16 08:35 Dose: Not Given Simvastatin (Zocor) 40 mg PO HS MIKE PRN Reason: Protocol Stop: 04/30/17 21:01 Last Admin: 11/02/16 21:35 Dose: 40 mg - Imaging and Cardiology Echo: report reviewed Cardiac cath: report reviewed Other Results: Telemetry: avg HR=66 SR. No significant event noted. - EKG Interpretation EKG results cardiology: personally reviewed Consult Discharge Plan - Plan Referrals: John Lerner, RESULTS TECHNICIAN [Primary Care Provider] - 11/07/16 9:30 am
[2016-11-03] MEDS: Aspirin Enteric Coated 81 MG Tablet PO SCH (08:33)
[2016-11-03] MEDS: amLODIPine 5 MG TABLET PO SCH (08:33)
[2016-11-03] MEDS: *HR* GlipiZIDE 5 MG TABLET PO SCH (08:34)
[2016-11-03] MEDS: Nystatin POWDER 30 GM BOTTLE TP SCH ×3 (08:34→21:31)
[2016-11-03] MEDS: Insulin DETEMIR 100 UNIT/ML X5UNITS SQ SCH ×2 (08:34→21:31)
[2016-11-03] MEDS: *HR* OxyCODONE Immed Rel 5 MG TABLET PO PRN (08:34)
[2016-11-03] MEDS: (Linagliptin [Tradjenta] 5 MG) PO SCH (08:35)
--- NOTE | 2016-11-03 09:02 | Cardiothoracic Progress Note ---
Date of Encounter: 11/03/16 Time of Encounter: 09:00 - Assessment and plan (1) Coronary artery disease Current Visit: Yes Status: Acute The patient has severe two-vessel asymptomatic CAD, including a 90% proximal LAD in-stent restenosis and a 70% proximal ramus lesion. The patient is scheduled for CABG on Saturday, November 05, 2016. The assessment and plan as outlined above was discussed with the patient and/or family members who expressed understanding and agreement. All questions were answered. Qualifiers: Coronary Disease-Associated Artery/Lesion type: [place] artery [place] vs. transplanted heart: [place] heart Associated angina: with stable angina Qualified Code(s): I25.118 - Atherosclerotic heart disease of [place] coronary artery with other forms of angina pectoris - Subjective Interval history: The patient is sitting comfortably in a chair. She has no complaints of substernal chest pain or shortness of breath. Vital Signs, Last 4 Hours Temp Pulse Resp BP Pulse Ox 11/03/16 07:36 98 F 78 16 127/58 98 Weight 11/01/16 11/02/16 11/03/16 23:59 23:59 23:59 Weight 145.1 kg 143.4 kg 143.7 kg - Physical Examination General: Conversant, No Apparent Distress Neck: No JVD, Normal carotid pulses Cardiac: Reg Rate and Rhythm, Normal S1 and S2, No Murmur Lungs: Normal Breath Sounds, No Wheeze, Rales, Rhonchi Neuro: Alert and responsive, No focal deficits noted Vascular: Normal capillary refill Extremities: No Clubbing, No Cyanosis, No Edema - Labs 11/02/16 00:38 11/02/16 00:38 Consult Discharge Plan - Plan Referrals: John Lerner CNP [Primary Care Provider] - 11/07/16 9:30 am
--- NOTE | 2016-11-03 16:25 | Internal Med Progress Note ---
Date of Encounter: 11/03/16 Time of Encounter: 16:22 - Assessment and plan (1) DMII (diabetes mellitus, type 2) Current Visit: Yes Status: Chronic Assessment and plan: Hospitalist service consulted for diabetes management The patient has a hemoglobin A1c of 12.4, hold Tradjenta during her hospitalization Resumed glipizide and metformin but will hold both until the day of the surgery Started on Levemir 15 units twice a day on 10/31/2016 , reduce to 8 Units HS Increased lispro up to 10 units 3 times a day plus a sliding scale Qualifiers: Diabetes mellitus complication status: with hyperglycemia Diabetes mellitus retirement insulin use: without retirement use Qualified Code(s): E11.65 - Type 2 diabetes mellitus with hyperglycemia (2) Unstable angina Current Visit: Yes Status: Acute Assessment and plan: Presented on 10/29/16 for elective LHC for abnormal stress test and unstable angina despite optimal medical therapy. LHC 10/29/16: severe 2-vessel CAD, EF 35%. 30-40% stenosis LMCA; 99% ISR to pLAD (ZUNILDA flow 1), diagonal 1 has ZUNILDA 1 flow; 30% stenosis pLCx, 20% stenosis OM1; 15% stenosis mRCA, 15% stenosis R PDA. TTE 10/30/16: EF 55%, no significant valvular dysfunction, normal wall motion. Patient was recommended to proceed with CABG, CT surgery consulted and following --plan for OHS on Thursday to allow for Plavix washout. Last dose of Plavix was on 10/29/16. Recommend inpatient stay due to high-grade pLAD lesion (3) Coronary artery disease Current Visit: Yes Status: Acute Qualifiers: Coronary Disease-Associated Artery/Lesion type: [place] artery [place] vs. transplanted heart: [place] heart Associated angina: with stable angina Qualified Code(s): I25.118 - Atherosclerotic heart disease of [place] coronary artery with other forms of angina pectoris (4) Essential hypertension Current Visit: Yes Status: Chronic Assessment and plan: As per cardiology management - Subjective Interval history: The patient mentioned that she had a spell earlier today when she thought her sugars were down but there were actually normal. complains of left shoulder pain , denies any chest pain, shortness of breath, no abdominal pain, no dysuria. No fevers - Constitutional Vitals: Temp Pulse Resp BP Pulse Ox 98.2 F 78 18 128/71 99 11/03/16 15:59 11/03/16 15:59 11/03/16 15:59 11/03/16 15:59 11/03/16 15:59 General appearance: Present: cooperative, A&O X 3, morbidly obese, answers questions appropriately - Head Head exam: Present: atraumatic, normocephalic - Eye Eye exam: Present: PERRL, conjuntiva pink, sclera anicteric Pupils: Present: PERRL - Neck Neck exam general surgery: Present: supple, trachea midline. Absent: lymphadenopathy - Respiratory Respiratory exam: Present: CTAB. Absent: accessory muscle use, rales, rhonchi, wheezes - Cardiovascular Cardiovascular exam: Present: RRR, +S1, +S2. Absent: diastolic murmur, gallop, rubs, systolic murmur - GI/Abdominal GI/Abdominal exam: Present: normal bowel sounds, soft, no peritoneal signs. Absent: distended, tenderness - Extremities Exam Extremities exam: Present: warm, radial pulses palpable and symetrical. Absent : calf tenderness, cyanotic, pedal edema - Neurological Exam Neurological exam: Present: CN II-XII intact, oriented X3, no focal deficits. Absent: pronater drift, facial droop, speech deficit - Skin Skin exam: Present: dry, intact Internal Medicine: Result - Labs CBC & Chem 7: 11/02/16 00:38 11/02/16 00:38 - ABG Interpretation ABG results: PT/INR, D-dimer PT 10.9 Seconds (9.4-12.1) 11/02/16 00:38 Consult Discharge Plan - Plan Referrals: John Lerner INVOICE CLASSIFICATION CLERK [Primary Care Provider] - 11/07/16 9:30 am
[2016-11-03] MEDS: *HR* HYDROcodone/Acet 5/325 mg TABLET PO PRN (17:02)
[2016-11-04] MEDS: *HR* Heparin 5,000 UNIT/ML VIAL SQ SCH ×2 (05:30→17:14)
[2016-11-04] MEDS: Insulin LISPRO 300 UNITS/3 ML VIAL SQ SCH ×7 (08:01→21:42)
--- NOTE | 2016-11-04 08:53 | Cardiology Progress Note ---
Date of Encounter: 11/04/16 Time of Encounter: 08:30 Assessment and Plan (1) Unstable angina Current Visit: Yes Status: Acute Presented on 10/29/[address] [facility] for abnormal stress test and unstable angina despite optimal medical therapy. [facility] 10/29/16: severe 2-vessel CAD, EF 35%. 30-40% stenosis LMCA; 99% ISR to pLAD (ZUNILDA flow 1), diagonal 1 has ZUNILDA 1 flow; 30% stenosis pLCx, 20% stenosis OM1; 15% stenosis mRCA, 15% stenosis R PDA. TTE 10/30/16: EF 55%, no significant valvular dysfunction, normal wall motion. Patient was recommended to proceed with CABG, CT surgery consulted and following --plan for OHS on Thursday to allow for Plavix washout. Last dose of Plavix was on 10/29/16. Recommend inpatient stay due to high-grade pLAD lesion. Has been chest pain free overnight. [facility] access site stable. Asa, statin, and betablocker. On Heparin SC for DVT prophylasix. Continue to monitor telemetry. (2) Essential hypertension Current Visit: Yes Status: Chronic Controlled with medication adjustments. Continue to monitor. (3) DMII (diabetes mellitus, type 2) Current Visit: Yes Status: Chronic On metformin at home, on hold. Sliding scale insulin ordered as inpatient. A1c=12.4. Cardiac/diabetic diet. Hospitalist Service consulted on 10/31/16 due to uncontrolled blood glucose despite high dose sliding scale. Ludwin added, equity trader consulted. Appreciate recommendations. Qualifiers: Diabetes mellitus complication status: with hyperglycemia Diabetes mellitus buttermaker insulin use: without fci use Qualified Code(s): E11.65 - Type 2 diabetes mellitus with hyperglycemia (4) Coronary artery disease Current Visit: Yes Status: Acute plan as stated above. Qualifiers: Coronary Disease-Associated Artery/Lesion type: [place] artery [place] vs. transplanted heart: [place] heart Associated angina: with stable angina Qualified Code(s): I25.118 - Atherosclerotic heart disease of [place] coronary artery with other forms of angina pectoris Discussion w patient/family: The assessment and plan as outlined above was discussed with the patient and/or family members who expressed understanding and agreement. All questions were answered. Thank you for involving us in the care of your patient. Please call with any questions. The patient will be discussed and reviewed with Dr. Webster, changes to be made accordingly. Subjective Principal diagnosis: Unstable angina Interval history: Seen and examined. Up to chair this AM She has no complaints this morning-- denies chest pain or discomfort, dyspnea, palpitations, or issues with C access site. Denies dysuria. Plan for OHS tomorrow, Thursday with Dr. Rainey to allow for plavix wash-out. All questions and concerns were addressed. Objective Vital Signs, Last 4 Hours Pulse Resp BP Pulse Ox 11/04/16 07:00 81 15 130/63 96 General: Conversant, No Apparent Distress HEENT: Atraumatic, Normocephaly Cardiac: Reg Rate and Rhythm, Normal S1 and S2 Lungs: Normal Breath Sounds Neuro: Alert and responsive Abdomen: Soft Skin: No rashes noted on visualized skin Musculoskeletal: No Chest Wall Tenderness Extremities: No Edema, Normal Pulses Results 11/02/16 00:38 11/02/16 00:38 - Imaging and Cardiology Chest Xray: report reviewed Echo: report reviewed Cardiac cath: report reviewed Other Results: 12 hour tele: avg HR=78 SR. No significant event noted. - EKG Interpretation EKG results cardiology: personally reviewed Consult Discharge Plan - Plan Referrals: John Lerner, EXPERIMENTAL OUTBOARD MOTORS MECHANIC [Primary Care Provider] - 11/07/16 9:30 am
--- NOTE | 2016-11-04 08:59 | Cardiothoracic Progress Note ---
Date of Encounter: 11/04/16 Time of Encounter: 08:58 - Assessment and plan (1) Coronary artery disease Current Visit: Yes Status: Acute The patient has severe two-vessel asymptomatic CAD, including a 90% proximal LAD in-stent restenosis and a 70% proximal ramus lesion. The patient is scheduled for CABG more morning. Currently she has no questions regarding the procedure. The assessment and plan as outlined above was discussed with the patient and/or family members who expressed understanding and agreement. All questions were answered. Qualifiers: Coronary Disease-Associated Artery/Lesion type: [place] artery [place] vs. transplanted heart: [place] heart Associated angina: with stable angina Qualified Code(s): I25.118 - Atherosclerotic heart disease of [place] coronary artery with other forms of angina pectoris - Subjective Interval history: The patient is sitting comfortably in a chair. She has no complaints of substernal chest pain or shortness of breath. Vital Signs, Last 4 Hours Pulse Resp BP Pulse Ox 11/04/16 07:00 81 15 130/63 96 Weight 11/02/16 11/03/16 11/04/16 23:59 23:59 23:59 Weight 143.4 kg 143.7 kg 143 kg - Physical Examination General: Conversant, No Apparent Distress Neck: No JVD, Normal carotid pulses Cardiac: Reg Rate and Rhythm, Normal S1 and S2, No Murmur Lungs: Normal Breath Sounds, No Wheeze, Rales, Rhonchi Neuro: Alert and responsive, No focal deficits noted Vascular: Normal capillary refill Extremities: No Clubbing, No Cyanosis, No Edema - Labs 11/02/16 00:38 11/02/16 00:38 Consult Discharge Plan - Plan Referrals: John Lerner CNP [Primary Care Provider] - 11/07/16 9:30 am
[2016-11-04] MEDS: Insulin DETEMIR 100 UNIT/ML X5UNITS SQ SCH (09:02)
[2016-11-04] MEDS: Aspirin Enteric Coated 81 MG Tablet PO SCH (09:03)
[2016-11-04] MEDS: amLODIPine 5 MG TABLET PO SCH (09:03)
[2016-11-04] MEDS: *HR* OxyCODONE Immed Rel 5 MG TABLET PO PRN (09:03)
[2016-11-04] MEDS: (Linagliptin [Tradjenta] 5 MG) PO SCH (09:04)
[2016-11-04] MEDS: Nystatin POWDER 30 GM BOTTLE TP SCH ×3 (09:04→21:44)
--- NOTE | 2016-11-04 16:28 | Anesthesia Evaluation PreOp ---
Date of Encounter: 11/05/16 Time of Encounter: 07:30 - Past History Planned Operation: CABG Tob[place] plus SVG x 2 Cardiac History: [place] (2013), Angina (stable), HTN, Hyperlipidemia, Cardiac Stent (2013. Has restenosis of stent) Pulmonary History: Denies Any Significant HX SUPERVISOR ELEMENTARY EDUCATION History: Denies Any Significant HX Other Medical History: Diabetes Type II, Other (morbid obesity) Anesthesia History: No Prior Anesthetic Complications, Past Anesthesia ( Cholecystectomy) : No Alcohol Use: none Drug use: none Medications and Allergies Amitriptyline [Elavil] 25 mg PO HS 10/29/16 [History] Aspirin [Lo-Dose Aspirin EC] 81 mg PO DAILY 10/29/16 [History] Clopidogrel [Plavix] 75 mg PO DAILY 10/29/16 [History] Enalapril Maleate [Vasotec] 10 mg PO DAILY 10/29/16 [History] GlipiZIDE [Glipizide] 10 mg PO BID 10/29/16 [History] Indapamide [Lozol] 2.5 mg PO DAILY 10/29/16 [History] Linagliptin [Tradjenta] 5 mg PO DAILY 10/29/16 [History] Metformin HCl [Glucophage] 1,000 mg PO BID 10/29/16 [History] Metoprolol [Lopressor] 100 mg PO DAILY 10/29/16 [History] Simvastatin [Zocor] 40 mg PO HS 10/29/16 [History] Allergies No Known Allergies Allergy (Unverified 09/09/16 10:25) - Meds/Allergy Pre-op Review Medications Reviewed: Yes Allergies Reviewed: Yes Beta Blockers on Current Med List: Yes Anesthesia Results - Labs 11/02/16 00:38 11/02/16 00:38 - Imaging EKG: report reviewed Additional studies: Cath shows severe 2 vessel disease, EF 45%. Echo shows no wall motion abnormalities with EF 55%. Positive stress test. Anesthesia Exam - HEENT Pupil (Motor): EOMI Mallampati: II Teeth: Poor dentition Oral Opening: Greater than 3 - SUPERVISOR [employer]LEMENTARY EDUCATION LOC: Oriented SUPERVISOR [employer]LEMENT[employer]UCATION Motor: Normal RUE, Normal LUE, Normal RLE, Normal LLE, Normal Face SUPERVISOR [employer]LEMENT[employer] EDUCATION Sensory: Normal: RUE, LUE, RLE, LLE, Face - Cardiac Rhythm: Regular Murmur: None - Pulmonary Breath Sounds: bilateral Clear Respiratory Effort: Symmetrical Anesthesia Assess/Plan ASA Score: 3 Modified Jaison Scale for Level of Consciousness: Cooperative, oriented, and tranquil Anesthetic Plan: General Autologous Blood: No Monitoring Plan: Standard Monitors, A-Line, PAC, TRACEE Recovery Plan: ICU (Discussed risks of GA, lines, TRACEE and blood. Questions answered. Agrees to proceed.)
--- NOTE | 2016-11-04 20:08 | Internal Med Progress Note ---
Date of Encounter: 11/04/16 Time of Encounter: 15:00 - Assessment and plan (1) Coronary artery disease Current Visit: Yes Status: Acute Assessment and plan: Continue management per cardiology. Plan for CABG tomorrow. Qualifiers: Coronary Disease-Associated Artery/Lesion type: [place] artery [place] vs. transplanted heart: [place] heart Associated angina: with stable angina Qualified Code(s): I25.118 - Atherosclerotic heart disease of [place] coronary artery with other forms of angina pectoris (2) Essential hypertension Current Visit: Yes Status: Chronic Assessment and plan: As per cardiology management (3) DMII (diabetes mellitus, type 2) Current Visit: Yes Status: Chronic Assessment and plan: 11/04/2016: Hold oral antidiabetic medication. Continue with Levemir at half dose and hold any meal coverage. Can add low-dose sliding scale score coverage every 6 hours as needed. We will follow up labs in the morning. Recalled from prior visit: Hospitalist service consulted for diabetes management The patient has a hemoglobin A1c of 12.4, hold Tradjenta during her hospitalization Resumed glipizide and metformin but will hold both until the day of the surgery Started on Levemir 15 units twice a day on 10/31/2016 , reduce to 8 Units HS Increased lispro up to 10 units 3 times a day plus a sliding scale Qualifiers: Diabetes mellitus complication status: with hyperglycemia Diabetes mellitus longterm insulin use: without rat exterminator use Qualified Code(s): E11.65 - Type 2 diabetes mellitus with hyperglycemia - Subjective Interval history: Patient reports that chest pain has resolved, currently 0/10. She has been chest pain-free for the last 24 hours. Denies shortness of breath at rest. She is awaiting CABG which is planned for tomorrow. - Constitutional Vitals: Temp Pulse Resp BP Pulse Ox 98.1 F 85 18 153/81 97 11/04/16 19:43 11/04/16 19:43 11/04/16 19:43 11/04/16 19:43 11/04/16 19:43 General appearance: Present: cooperative, A&O X 3, morbidly obese, answers questions appropriately - Respiratory Respiratory exam: Present: CTAB. Absent: accessory muscle use, rales, rhonchi, wheezes - Cardiovascular Cardiovascular exam: Present: RRR, +S1, +S2. Absent: diastolic murmur, gallop, rubs, systolic murmur - GI/Abdominal GI/Abdominal exam: Present: normal bowel sounds, soft, no peritoneal signs. Absent: distended, tenderness - Extremities Exam Extremities exam: Present: warm, radial pulses palpable and symetrical. Absent : calf tenderness, cyanotic, pedal edema - Neurological Exam Neurological exam: Present: CN II-XII intact, oriented X3, no focal deficits. Absent: pronater drift, facial droop, speech deficit - Skin Skin exam: Present: dry, intact Internal Medicine: Result - Labs CBC & Chem 7: 11/02/16 00:38 11/02/16 00:38 - ABG Interpretation ABG results: PT/INR, D-dimer PT 10.9 Seconds (9.4-12.1) 11/02/16 00:38 Consult Discharge Plan - Plan Referrals: John Lerner, HIM ANALYST [Primary Care Provider] - 11/07/16 9:30 am
[2016-11-04] MEDS ORDERED: Insulin DETEMIR 100 UNIT/ML X5UNITS SQ SCH (21:00)
[2016-11-04] MEDS: Chlorhexidine Rinse 15 ML MOUTHWASH MM SCH (21:43)
[2016-11-05] MEDS ORDERED: ceFAZolin 3,000 MG in D5% in Water 100 ML IVPB ONE (00:01)
[2016-11-05] MEDS: *HR* Metformin 500 MG TABLET PO SCH (02:25)
[2016-11-05] MEDS: Chlorhexidine Rinse 15 ML MOUTHWASH MM SCH ×2 (06:17→20:17)
[2016-11-05] MEDS: *HR* Heparin 5,000 UNIT/ML VIAL SQ SCH ×2 (06:17→17:11)
[2016-11-05] MEDS: Aspirin Enteric Coated 81 MG Tablet PO SCH (06:17)
[2016-11-05] MEDS ORDERED: *HR* Etomidate 20 MG/10 ML AMPUL IVP ONE (06:51)
[2016-11-05] MEDS ORDERED: *HR* Phenylephrine 10 MG/ML VIAL ONE (06:51)
[2016-11-05] MEDS ORDERED: *HR* Norepinephrine 4 MG/4 ML VIAL IVC ONE (06:51)
[2016-11-05] MEDS ORDERED: *HR* Rocuronium Bromide 50 MG/5 ML VIAL ONE ×2 (06:51→10:47)
[2016-11-05] MEDS ORDERED: Famotidine 20 MG/2 ML VIAL ONE (06:51)
[2016-11-05] MEDS ORDERED: Tranexamic Acid 1,000 MG/10 ML VIAL ONE ×2 (06:52→09:30)
[2016-11-05] MEDS ORDERED: Protamine Sulfate 250 MG/25 ML VIAL IVP ONE (06:52)
[2016-11-05] MEDS ORDERED: *HR* Midazolam HCl 5 MG/5 ML VIAL IVP ONE (06:59)
[2016-11-05] MEDS ORDERED: *HR* FentaNYL (PF) 1,000 MCG/20 ML VIAL ONE (06:59)
[2016-11-05] MEDS ORDERED: Nitroglycerin 25 MG/250 ML INFUS..BTL IVC ONE ×2 (07:02→08:55)
[2016-11-05] MEDS ORDERED: NiCARdipine 2.5 MG/10 ML Syringe IVPB ONE (07:03)
[2016-11-05] MEDS ORDERED: Verapamil 5 MG/2 ML VIAL ONE (08:03)
--- NOTE | 2016-11-05 08:51 | Anesthesia Procedures ---
Date of Encounter: 11/05/16 Time of Encounter: 07:40 Procedures: Anesthesia - Arterial Line Consent obtained: written consent Time out performed: Yes Sedation: Versed (mg): 2 Sedation: Fentanyl (mcg): 100 Supplemental Oxygen via Nasal Cannula (L/min): 2 Local Anesthetic: Lidocaine 1% Amount of Anesthetic used (mls): 1 Size (Gauge): 20 Length (inches): 5 Technique Used: sterile prep, guide wire technique, direct puncture technique Post-Procedure: line taped into place, dry sterile dressing placed Patient tolerated procedure: well, no complications Complications: none Site: Radial L (attempt x 2. Catheter placed easily) - Central Line Placement Right IJ Consent obtained: written consent Time out performed: Yes Patient placed on monitor/pulse ox: Yes prep: mask, gown, gloves Central line prep: Chlorhexidine scrub Ultrasound used for placement: Yes Technique: Seldinger Lumen Inserted: Introducer Post procedure: sutured in place, good blood return, all ports aspirated, flushed, capped, sterile dressing applied Patient tolerated procedure: well, no complications Comments: attempt x1. Introducer placed easily, Kermit placed easily, no arrhythmias, wedge approx 52cm
[2016-11-05] MEDS ORDERED: Albumin Human 5% 50.0 GM/1,000 ML VIAL ONE (08:55)
[2016-11-05] MEDS ORDERED: Insulin Regular, Human 100 UNIT/ML ONE (10:00)
[2016-11-05] MEDS ORDERED: *HR* Heparin 10,000 UNIT/10 ML VIAL IV ONE (10:02)
[2016-11-05] MEDS ORDERED: *HR* Phenylephrine 10 MG/ML VIAL IVC ONE (10:02)
[2016-11-05] MEDS ORDERED: *HR* Magnesium Sulfate 2 GM/50 ML PIGGYBACK IVPB ONE (10:02)
[2016-11-05] MEDS ORDERED: Lidocaine 2% Syringe 100 MG/5 ML IV ONE (10:02)
[2016-11-05] MEDS ORDERED: Albumin Human 25% 25 GM/100 ML IV.SOLN IV ONE (10:02)
[2016-11-05] MEDS ORDERED: Sodium Bicarbonate 50 MEQ/50 ML VIAL IVC ONE (10:02)
[2016-11-05] MEDS ORDERED: Mannitol 25% vial 12.5 GM/50 ML VIAL IVP ONE (10:02)
[2016-11-05] MEDS: Insulin Human Regular 100 UNIT in 0.9 % Sodium Chloride 100 ML IVC SCH ×2 (11:50→22:34)
[2016-11-05] MEDS ORDERED: D5% in Water 1,000 ML IV PRN (11:59)
[2016-11-05] MEDS ORDERED: Insulin Regular, Human 100 UNIT/ML IV PRN (11:59)
[2016-11-05] MEDS ORDERED: *HR* HYDROcodone/Acet 5/325 mg TABLET PO PRN (11:59)
[2016-11-05] MEDS ORDERED: Naloxone 0.4 MG/ML INJ IVP PRN (11:59)
[2016-11-05] MEDS ORDERED: Dextrose Gel 15 GM PO PRN ×2 (11:59)
[2016-11-05] MEDS ORDERED: *HR* Dextrose 50 % in Water (Syg) 50 ML SYRINGE IVP PRN (11:59)
[2016-11-05] MEDS ORDERED: Potassium Chloride 40 MEQ/200 ML BAG IVPB PRN (11:59)
[2016-11-05] MEDS: Nitroglycerin 25 MG/250 ML INFUS..BTL IVC SCH ×3 (12:00→22:28)
[2016-11-05 12:12] LABS: Basophils # 0.1 K/mcL (0.0-0.2); Basophils % 0.5 %; Eosinophils # 0.1 K/mcL (0.0-0.6); Eosinophils % 0.8 %; Immature Granulocytes % 0.6 % (0-4); Lymphocytes # 2.8 K/mcL (0.6-4.6); Lymphocytes % 16.5 %; Mean Corpuscular HGB Conc 32.7 g/dL (31.6-35.5); Mean Corpuscular Volume 91.6 fL (83.0-100.0); Mean Platelet Volume 11.7 fL (9.4-12.4); Monocytes % 5.8 %; Neutrophils # 12.9 K/mcL (1.6-8.9); Platelet Count 174 K/mcL (140-400); Red Blood Count 4.04 M/mcL (3.82-4.97); Red Cell Distribution Width 13.5 % (11.5-14.5); Segmented Neutrophils % 75.8 %
[2016-11-05 12:13] LABS: Hemoglobin 12.1 g/dL (11.5-15.4)
[2016-11-05 12:14] LABS: ABG Base Excess -0.6 mEq/L (-2.0 to 3.0); ABG HCO3 25.8 mEQ/L (21-27); ABG Oxygen Saturation 98 % (95-98); ABG PCO2 49 mmHg (35-45); ABG PO2 112 mmHg (85-104); ABG TCO2 27.3 mEq/L (20-26)
[2016-11-05] MEDS ORDERED: niCARdipine 40 MG/200 ML MLS IVC ONE (12:14)
[2016-11-05 12:15] LABS: Blood Gas FiO2 50 %; Blood Gas PEEP 5 cm H2O; Blood Gas Respiration Rate 10; Blood Gas VT 600 cc
--- NOTE | 2016-11-05 12:16 | Operative Note ---
Date of procedure: 11/05/16 Procedure in Detail: November 05, 2016. Preoperative diagnosis. Coronary artery disease. Postoperative diagnosis. Same. Procedures. Coronary artery bypass grafting 2 with the left internal mammary artery to the LAD in the aorta to the diagonal branch with saphenous vein. Surgeon. Dr. Philipp Rainey. Asst. Denver Garces. Anesthesia. Dr. Duran Pineda. The patient is a 61-year-old female with a history of severe diabetes. Her hemoglobin A1c on admission was over 12. Cardiac catheter revealed severe coronary artery disease with a 99% of her LAD diagonal system and she was referred for surgery. She had been on Plavix and this was stopped for 6 days prior to surgery. She was brought to the operating room where she underwent a general anesthetic. She was prepped and draped in standard fashion. The right greater saphenous vein was harvested from below the right knee to the right groin using 2 incisions and the scope. These incisions were subsequently closed with a deep layer of 0 Vicryl and a 2-0 Vicryl subcuticular stitch. A standard median sternotomy was performed. The left internal mammary artery retractor was inserted and the left internal mammary artery was harvested in standard fashion using the Bovie electrocoagulation. This was found to be an adequate vessel with adequate pulse and flow. Following this, the mammary retractor was removed. Standard sternal stainless steel finisher was inserted. Pericardium was opened in the midline and suspended with 2-0 silk stay sutures. Double pursestring of 20 Surgilon was placed in the aorta for the aortic cannulation site. A pursestring of 20 Surgilon was placed in the right atrial appendage for the venous uptake. The patient was heparinized. The aorta was cannulated without difficulty. 2 stage venous uptake cannula was inserted through the right atrial appendage. Pursestring of 4-0 silk was placed in the aorta and the cardioplegia needle was inserted through here. This was also used as an active and passive aortic vent. The patient was placed on court-appointed bypass and cooled. The aorta was crossclamped and a liter of antegrade cardioplegia was given. Topical cooling with iced saline slush was also done. Attention was first turned to the intermediate branch. This was less than a millimeter and was too small for grafting. The diagonal branch was dissected free with the [place] blade and opened with a [place] blade and the Samano scissors. This had a lumen of 1 mm with mild to moderate diffuse disease. A standard end-to-side anastomosis was constructed using the saphenous vein and a 7-0 Prolene. When this was completed, the patient received an additional dose of antegrade cardioplegia. Mammary pedicle was harvested. Tonsil clamp was placed distally and was divided with the Metzenbaum scissors. The LAD was dissected free with the [place] blade and opened with a [place] blade and the Samano scissors. This had a lumen of 1-1/2 mm with moderate diffuse disease. A standard end-to-side anastomosis was constructed using the mammary artery and a 7-0 Prolene. When this was completed, the previously placed bulldog clamp was removed. The hemostasis was good. Pedicle was tacked to the surface of the heart using 2 interrupted 5-0 silk sutures. Cross-clamp was removed and rewarming was begun. Total cross-clamp time was 31 minutes. A side biting clamp was placed on the aorta and the cardioplegia needle was removed. A hole was made in the aorta using the [place] blade and the 4.4 mm aortic punch. A standard proximal anastomosis was constructed using the saphenous vein and a 5-0 Prolene. When this was completed, the side-biting clamp was removed. The graft was de-aired using #25-gauge needle. The proximal anastomosis was marked with a marker from [employer] sponge. The distal anastomoses were inspected. FloSeal was placed around the RUIZ distal anastomosis. A pair of ventricular pacing wires was left. 3 chest tubes were left. A 32 right angle chest tube to the left pleural space. A 32 right angle chest tube to the pericardial well. A 42 mediastinal chest tube. Pericardium was left open. Sternum was closed with #7 sternal wires in simple and [id number] fashion. Fascia was run with #1 Vicryl. Subcutaneous tissues with a 2-0 Vicryl. Skin was closed with a 3-0 Vicryl subcuticular stitch. The patient tolerated procedure well and was returned intensive care unit in satisfactory and stable condition. Total cross-clamp time 31 minutes. Total bypass time 61 minutes.
[2016-11-05 12:17] LABS: ABG PH 7.33 pH Units (7.32-7.45)
[2016-11-05 12:24] LABS: INR 1.3; Prothrombin Time 14.4 Seconds (9.4-12.1)
[2016-11-05 12:26] LABS: Activated Partial Thrombo Time 28.4 Seconds (26.0-36.0)
[2016-11-05 12:27] LABS: BUN/Creatinine Ratio 12 (6-26); Blood Urea Nitrogen 8 mg/dL (7-20); Carbon Dioxide 24 mEq/L (19-29); Chloride 106 mEq/L (98-109); Glucose 231 mg/dL (70-99); Magnesium 1.8 mg/dL (1.6-2.6); Osmolality,Calculated 294 (280-300); Sodium 139 mEq/L (136-145); eGFR For African Americans > 60 (> 60); eGFR For Non-African Americans > 60 (> 60)
[2016-11-05] MEDS: Insulin LISPRO 300 UNITS/3 ML VIAL SQ SCH ×2 (12:58→19:37)
[2016-11-05] MEDS: *HR* OxyCODONE/APAP 5/325 TABLET PO PRN ×3 (13:51→22:07)
[2016-11-05] MEDS: *HR* Morphine 2 MG/ML SYRINGE IVP PRN ×3 (13:51→22:07)
[2016-11-05] MEDS: niCARdipine 40 MG/200 ML MLS IVC SCH ×2 (14:06→20:08)
[2016-11-05] MEDS: 0.9 % Sodium Chloride 1,000 ML IVC SCH (14:06)
[2016-11-05 14:28] LABS: ABG Base Excess -1.6 mEq/L (-2.0 to 3.0); ABG Glucose 147 mg/dL (60-95); ABG HCO3 25.5 mEQ/L (21-27); ABG Hematocrit 37 % (35-51); ABG Oxygen Saturation 100 % (95-98); ABG PCO2 53 mmHg (35-45); ABG PH 7.29 pH Units (7.32-7.45); ABG PO2 193 mmHg (85-104); ABG TCO2 27.1 mEq/L (20-26)
[2016-11-05 14:29] LABS: ABG Ionized Calcium 0.88 mmol/L (1.15-1.35)
[2016-11-05 14:30] LABS: ABG Base Excess -1.3 mEq/L (-2.0 to 3.0); ABG HCO3 23.7 mEQ/L (21-27); ABG PCO2 40 mmHg (35-45); ABG PH 7.38 pH Units (7.32-7.45); ABG PO2 126 mmHg (85-104); ABG TCO2 24.9 mEq/L (20-26)
[2016-11-05 14:31] LABS: ABG Glucose 214 mg/dL (60-95); ABG Hematocrit 36 % (35-51); ABG Ionized Calcium 0.89 mmol/L (1.15-1.35); ABG Oxygen Saturation 99 % (95-98)
[2016-11-05 14:33] LABS: VBG HCO3 28.4 mEq/L (21-27); VBG Ionized Calcium 0.9 mmol/L (1.15-1.35); VBG PH 7.38 pH Units (7.32-7.42)
[2016-11-05 14:35] LABS: ABG PH 7.41 pH Units (7.32-7.45)
[2016-11-05 14:36] LABS: ABG Base Excess 2.9 mEq/L (-2.0 to 3.0); ABG Glucose 285 mg/dL (60-95); ABG HCO3 27.9 mEQ/L (21-27); ABG Hematocrit 28 % (35-51); ABG Oxygen Saturation 100 % (95-98); ABG PO2 375 mmHg (85-104); ABG TCO2 29.3 mEq/L (20-26)
[2016-11-05 14:37] LABS: ABG PCO2 44 mmHg (35-45)
[2016-11-05 14:39] LABS: ABG Base Excess 4.2 mEq/L (-2.0 to 3.0); ABG HCO3 29.2 mEQ/L (21-27); ABG PCO2 45 mmHg (35-45); ABG PH 7.42 pH Units (7.32-7.45); ABG PO2 412 mmHg (85-104); ABG TCO2 30.6 mEq/L (20-26)
[2016-11-05 14:40] LABS: ABG Glucose 246 mg/dL (60-95); ABG Hematocrit 30 % (35-51); ABG Ionized Calcium 1.02 mmol/L (1.15-1.35); ABG Oxygen Saturation 100 % (95-98)
[2016-11-05 14:42] LABS: ABG HCO3 24.8 mEQ/L (21-27); ABG PCO2 40 mmHg (35-45); ABG PO2 102 mmHg (85-104)
[2016-11-05 14:43] LABS: ABG Glucose 204 mg/dL (60-95); ABG Hematocrit 24 % (35-51); ABG Ionized Calcium 1.14 mmol/L (1.15-1.35); ABG Oxygen Saturation 98 % (95-98)
[2016-11-05 16:17] LABS: ABG Base Excess 0.5 mEq/L (-2.0 to 3.0); ABG HCO3 24.6 mEQ/L (21-27); ABG Oxygen Saturation 100 % (95-98); ABG PCO2 37 mmHg (35-45); ABG PH 7.43 pH Units (7.32-7.45); ABG PO2 199 mmHg (85-104); ABG TCO2 25.7 mEq/L (20-26)
[2016-11-05 16:18] LABS: Blood Gas FiO2 40 %
[2016-11-05] MEDS ORDERED: Ondansetron 4 MG/2 ML VIAL IVP PRN (16:25)
[2016-11-05] MEDS ORDERED: Ondansetron 4 MG/2 ML VIAL ONE (16:27)
[2016-11-05 16:33] LABS: Hematocrit 35.5 % (35.3-44.9)
[2016-11-05 16:37] LABS: Hemoglobin 11.9 g/dL (11.5-15.4)
[2016-11-05] MEDS: ceFAZolin 3,000 MG in D5% in Water 100 ML IVPB SCH (18:12)
[2016-11-05 19:31] LABS: ABG Base Excess 1.3 mEq/L (-2.0 to 3.0); ABG HCO3 26.6 mEQ/L (21-27); ABG Oxygen Saturation 99 % (95-98); ABG PCO2 44 mmHg (35-45); ABG PO2 133 mmHg (85-104); Blood Gas FiO2 30 %
[2016-11-05 19:33] LABS: ABG PH 7.39 pH Units (7.32-7.45)
[2016-11-05 21:56] LABS: ABG Base Excess 1.7 mEq/L (-2.0 to 3.0); ABG HCO3 27.2 mEQ/L (21-27); ABG Oxygen Saturation 99 % (95-98); ABG PCO2 46 mmHg (35-45); ABG PH 7.38 pH Units (7.32-7.45); ABG PO2 119 mmHg (85-104); ABG TCO2 28.6 mEq/L (20-26); Blood Gas FiO2 32 %
[2016-11-06] MEDS: *HR* Morphine 2 MG/ML SYRINGE IVP PRN ×8 (01:17→21:40)
[2016-11-06] MEDS: 0.9 % Sodium Chloride 1,000 ML IVC SCH (01:55)
[2016-11-06] MEDS: ceFAZolin 3,000 MG in D5% in Water 100 ML IVPB SCH (01:57)
[2016-11-06] MEDS: *HR* OxyCODONE/APAP 5/325 TABLET PO PRN ×3 (02:59→14:14)
[2016-11-06] MEDS: niCARdipine 40 MG/200 ML MLS IVC SCH ×2 (03:46→10:59)
[2016-11-06 04:06] LABS: INR 1.2; Prothrombin Time 13.2 Seconds (9.4-12.1)
[2016-11-06 04:09] LABS: Activated Partial Thrombo Time 25.7 Seconds (26.0-36.0)
[2016-11-06 04:13] LABS: BUN/Creatinine Ratio 14 (6-26); Blood Urea Nitrogen 9 mg/dL (7-20); Calcium 7.7 mg/dL (8.6-10.8); Carbon Dioxide 22 mEq/L (19-29); Chloride 105 mEq/L (98-109); Glucose 152 mg/dL (70-99); Magnesium 1.2 mg/dL (1.6-2.6); Osmolality,Calculated 284 (280-300); Potassium 3.8 mEq/L (3.5-4.5); Sodium 136 mEq/L (136-145); eGFR For African Americans > 60 (> 60); eGFR For Non-African Americans > 60 (> 60)
[2016-11-06 04:19] LABS: Basophils % 0.2 %; Hematocrit 32.1 % (35.3-44.9); Immature Granulocytes % 0.5 % (0-4); Lymphocytes # 1.9 K/mcL (0.6-4.6); Lymphocytes % 13.2 %; Mean Corpuscular HGB Conc 31.8 g/dL (31.6-35.5); Mean Corpuscular Volume 91.2 fL (83.0-100.0); Monocytes # 0.9 K/mcL (0.0-1.3); Monocytes % 6.5 %; Neutrophils # 11.6 K/mcL (1.6-8.9); Platelet Count 189 K/mcL (140-400); Red Blood Count 3.52 M/mcL (3.82-4.97); Red Cell Distribution Width 13.7 % (11.5-14.5); Segmented Neutrophils % 79.6 %
[2016-11-06 04:39] LABS: Hemoglobin 10.2 g/dL (11.5-15.4)
[2016-11-06] MEDS: *HR* Heparin 5,000 UNIT/ML VIAL SQ SCH ×2 (05:02→16:57)
[2016-11-06] MEDS: Nitroglycerin 25 MG/250 ML INFUS..BTL IVC SCH ×2 (05:52→16:26)
--- NOTE | 2016-11-06 06:39 | Cardiothoracic Progress Note ---
Date of Encounter: 11/06/16 Time of Encounter: 06:37 - Assessment and plan (1) Coronary artery disease Current Visit: Yes Status: Acute We will discontinue the [place] catheter and A-line. We will leave the [place] until we remove the chest tubes tomorrow. We will restart her home blood pressure medications and wean her nitroglycerin as tolerated. We will order low- dose Lasix. We will get her up to a chair. Qualifiers: Coronary Disease-Associated Artery/Lesion type: [place] artery [place] vs. transplanted heart: [place] heart Associated angina: with stable angina Qualified Code(s): I25.118 - Atherosclerotic heart disease of [place] coronary artery with other forms of angina pectoris - Subjective Interval history: The patient's only complaint is mild postoperative pain. Vital Signs, Last 4 Hours Temp Pulse Resp BP Pulse Ox 11/06/16 05:57 98.3 F 91 16 139/59 96 11/06/16 05:05 98.3 F 89 16 138/58 99 11/06/16 03:46 98.3 F 86 15 137/56 98 11/06/16 03:32 15 98 11/06/16 02:53 98.3 F 85 16 151/57 98 Oxgyen Flow Rate Oxygen Flow Rate (LPM) 3 Clinical Data, last 8 Hours Output, Chest Tube Drainage 0 Amount [Mediastinal #3] Output, Chest Tube Drainage 0 Amount [Mediastinal #3] Output, Chest Tube Drainage 0 Amount [Mediastinal #3] Output, Chest Tube Drainage 0 Amount [Mediastinal #3] Output, Chest Tube Drainage 20 Amount [Mediastinal #3] Output, Chest Tube Drainage 0 Amount [Mediastinal #3] Output, Chest Tube Drainage 10 Amount [Mediastinal #3] Output, Chest Tube Drainage 0 Amount [Mediastinal #3] Output, Chest Tube Drainage 0 Amount [Mediastinal #3] Output, Chest Tube Drainage 0 Amount [Mediastinal #2] Output, Chest Tube Drainage 0 Amount [Mediastinal #2] Output, Chest Tube Drainage 0 Amount [Mediastinal #2] Output, Chest Tube Drainage 0 Amount [Mediastinal #2] Output, Chest Tube Drainage 25 Amount [Mediastinal #2] Output, Chest Tube Drainage 25 Amount [Mediastinal #2] Output, Chest Tube Drainage 0 Amount [Mediastinal #2] Output, Chest Tube Drainage 0 Amount [Mediastinal #1] Output, Chest Tube Drainage 0 Amount [Mediastinal #1] Output, Chest Tube Drainage 0 Amount [Mediastinal #1] Output, Chest Tube Drainage 0 Amount [Mediastinal #1] Output, Chest Tube Drainage 25 Amount [Mediastinal #1] Output, Chest Tube Drainage 0 Amount [Mediastinal #1] Output, Chest Tube Drainage 15 Amount [Mediastinal #1] Output, Chest Tube Drainage 0 Amount [Mediastinal #1] Weight 11/04/16 11/05/16 11/06/16 23:59 23:59 23:59 Weight 143 kg Lungs are clear to percussion and auscultation. Heart is in a normal sinus rhythm. All incisions are healing well without signs of infection and the sternum is stable. Chest tube drainage is minimal. Chest x-ray shows no active disease. - Labs 11/06/16 03:37 11/06/16 03:37 Lab Results, Last 24 hours 11/05/16 11/05/16 11/05/16 12:00 12:00 12:00 WBC 17.0 H D Hgb 12.1 D Hct 37.0 Plt Count 174 INR 1.3 APTT 28.4 Sodium 139 Potassium 4.0 Chloride 106 Carbon Dioxide 24 BUN 8 Creatinine 0.65 Glucose 231 H Calcium 8.0 L Magnesium 1.8 11/05/16 11/05/16 11/06/16 16:05 16:05 03:37 WBC 14.6 H Hgb 11.9 10.2 L D Hct 35.5 32.1 L Plt Count 189 INR APTT Sodium Potassium 4.1 Chloride Carbon Dioxide BUN Creatinine Glucose Calcium Magnesium 11/06/16 11/06/16 03:37 03:37 WBC Hgb Hct Plt Count INR 1.2 APTT 25.7 L Sodium 136 Potassium 3.8 Chloride 105 Carbon Dioxide 22 BUN 9 Creatinine 0.65 Glucose 152 H Calcium 7.7 L Magnesium 1.2 L Consult Discharge Plan - Plan Referrals: John Lerner, PUNCH PRESS OPERATOR [Primary Care Provider] - 11/07/16 9:30 am
[2016-11-06] MEDS: Insulin LISPRO 300 UNITS/3 ML VIAL SQ SCH ×4 (07:02→20:11)
[2016-11-06] MEDS: Chlorhexidine Rinse 15 ML MOUTHWASH MM SCH ×2 (08:05→20:04)
[2016-11-06] MEDS: Furosemide 20 MG/2 ML VIAL IVP SCH ×2 (08:05→20:04)
[2016-11-06] MEDS: (Linagliptin [Tradjenta] 5 MG) PO SCH (08:26)
[2016-11-06] MEDS: *HR* OxyCODONE Immed Rel 5 MG TABLET PO PRN ×2 (11:05→20:04)
[2016-11-06] MEDS ORDERED: Magnesium Sulfate 2 GM in D5% in Water 100 ML IVPB ONE (16:15)
--- NOTE | 2016-11-06 17:20 | Electrocardiograph Report ---
[address] [place], [place] [address] Test Date: 2016-11-05 Pat Name: Mali Rosales Department: 109 Room: [facility] Gender: F Hand Scudder: ESTHELA : 1955 Requested By: Philipp Rainey Order Number: [id number] Reading MD: Vijay Goins MD Measurements Intervals [place] Rate: 78 P: 45 DE: 180 QRS: 6 QRSD: 94 T: 76 QT: 403 QTc: 436 Interpretive Statements SINUS RHYTHM LOW QRS VOLTAGE IN PRECORDIAL LEADS ANTEROSEPTAL MYOCARDIAL INFARCTION, OF INDETERMINATE AGE Electronically Signed On 11-06-2016 17:18:58 EDT by Vijay Goins MD
[2016-11-07] MEDS: *HR* Morphine 2 MG/ML SYRINGE IVP PRN (04:21)
[2016-11-07 04:34] LABS: Basophils # 0.1 K/mcL (0.0-0.2); Basophils % 0.4 %; Eosinophils % 0.3 %; Hematocrit 31.8 % (35.3-44.9); Hemoglobin 10.3 g/dL (11.5-15.4); Immature Granulocytes % 0.4 % (0-4); Lymphocytes # 2.4 K/mcL (0.6-4.6); Lymphocytes % 21.1 %; Mean Corpuscular HGB Conc 32.4 g/dL (31.6-35.5); Mean Corpuscular Hemoglobin 29.5 pg (28.0-33.3); Mean Corpuscular Volume 91.1 fL (83.0-100.0); Monocytes # 0.9 K/mcL (0.0-1.3); Monocytes % 7.7 %; Neutrophils # 7.9 K/mcL (1.6-8.9); Platelet Count 185 K/mcL (140-400); Red Blood Count 3.49 M/mcL (3.82-4.97); Red Cell Distribution Width 14.3 % (11.5-14.5); Segmented Neutrophils % 70.1 %
[2016-11-07 04:51] LABS: BUN/Creatinine Ratio 12 (6-26); Blood Urea Nitrogen 8 mg/dL (7-20); Calcium 8.4 mg/dL (8.6-10.8); Carbon Dioxide 26 mEq/L (19-29); Chloride 102 mEq/L (98-109); Glucose 252 mg/dL (70-99); Osmolality,Calculated 289 (280-300); Potassium 4.2 mEq/L (3.5-4.5); Sodium 136 mEq/L (136-145); eGFR For African Americans > 60 (> 60); eGFR For Non-African Americans > 60 (> 60)
[2016-11-07] MEDS: *HR* Heparin 5,000 UNIT/ML VIAL SQ SCH ×2 (06:05→16:16)
[2016-11-07] MEDS: *HR* OxyCODONE/APAP 5/325 TABLET PO PRN ×3 (06:06→18:05)
[2016-11-07] MEDS: Chlorhexidine Rinse 15 ML MOUTHWASH MM SCH (08:09)
[2016-11-07] MEDS: Furosemide 20 MG/2 ML VIAL IVP SCH ×2 (08:09→16:16)
[2016-11-07] MEDS: *HR* OxyCODONE Immed Rel 5 MG TABLET PO PRN (08:09)
[2016-11-07] MEDS: Insulin LISPRO 300 UNITS/3 ML VIAL SQ SCH ×4 (08:11→21:18)
[2016-11-07] MEDS: (Linagliptin [Tradjenta] 5 MG) PO SCH (08:12)
--- NOTE | 2016-11-07 08:36 | Cardiothoracic Progress Note ---
Date of Encounter: 11/07/16 Time of Encounter: 08:33 - Assessment and plan (1) Coronary artery disease Current Visit: Yes Status: Acute The chest tubes and pacing wires were removed. We will check a stat portable chest x-ray. We will discontinue the [place]. I will increase her Lopressor dosage. We will attempt to transfer the patient to the floor although the hospital is quite full at this point. Qualifiers: Coronary Disease-Associated Artery/Lesion type: [place] artery [place] vs. transplanted heart: [place] heart Associated angina: with stable angina Qualified Code(s): I25.118 - Atherosclerotic heart disease of [place] coronary artery with other forms of angina pectoris - Subjective Interval history: The patient complains only of mild postoperative pain. Vital Signs, Last 4 Hours Temp Pulse Resp BP Pulse Ox 11/07/16 08:23 98.3 F 11/07/16 08:00 100 18 127/61 96 11/07/16 07:00 98.3 F 98 16 122/57 96 11/07/16 06:00 103 16 137/71 96 11/07/16 05:00 98.5 F 104 18 127/67 96 Oxgyen Flow Rate Oxygen Flow Rate (LPM) 3 Clinical Data, last 8 Hours Output, Chest Tube Drainage 0 Amount [Mediastinal #3] Output, Chest Tube Drainage 10 Amount [Mediastinal #3] Output, Chest Tube Drainage 0 Amount [Mediastinal #2] Output, Chest Tube Drainage 0 Amount [Mediastinal #2] Output, Chest Tube Drainage 0 Amount [Mediastinal #1] Output, Chest Tube Drainage 0 Amount [Mediastinal #1] Weight 11/05/16 11/06/16 11/07/16 23:59 23:59 23:59 Weight 147.4 kg Lungs are clear to percussion and auscultation. Heart is in a normal sinus rhythm. All incisions are healing well without signs of infection and the sternum is stable. Chest tube drainage is minimal and there is no air leak. - Labs 11/07/16 04:00 11/07/16 04:00 Lab Results, Last 24 hours 11/07/16 11/07/16 11/07/16 00:01 04:00 04:00 WBC 11.3 H Hgb 10.3 L Hct 31.8 L Plt Count 185 Sodium 136 Potassium 4.2 Chloride 102 Carbon Dioxide 26 BUN 8 Creatinine 0.65 Glucose 252 H Calcium 8.4 L Magnesium 1.6 - VTE Documentation of Mechanical Device: Graduated compression elastic hosiery Consult Discharge Plan - Plan Referrals: John Lerner, KIT [Primary Care Provider] - 11/07/16 9:30 am
[2016-11-07] MEDS ORDERED: *HR* OxyCODONE Immed Rel 5 MG TABLET PO PRN (09:04)
[2016-11-07] MEDS ORDERED: Potassium Chloride 40 MEQ/200 ML BAG IVPB PRN (09:04)
[2016-11-07] MEDS ORDERED: *HR* Dextrose 50 % in Water (Syg) 50 ML SYRINGE IVP PRN (09:26)
[2016-11-07] MEDS ORDERED: Dextrose Gel 15 GM PO PRN ×2 (09:26)
[2016-11-07] MEDS ORDERED: Ondansetron 4 MG/2 ML VIAL IVP PRN (09:28)
[2016-11-07] MEDS ORDERED: Naloxone 0.4 MG/ML INJ IVP PRN (09:33)
[2016-11-07] MEDS ORDERED: *HR* Morphine 2 MG/ML SYRINGE IVP PRN (09:33)
[2016-11-07] MEDS: Aspirin 81 MG TAB.CHEW PO SCH (10:02)
[2016-11-07] MEDS: Insulin DETEMIR 100 UNIT/ML X5UNITS SQ SCH (10:47)
[2016-11-07] MEDS ORDERED: Furosemide 20 MG/2 ML VIAL IVP SCH (21:00)
[2016-11-08] MEDS: *HR* OxyCODONE/APAP 5/325 TABLET PO PRN ×4 (00:32→21:25)
[2016-11-08 01:28] LABS: Basophils # 0.1 K/mcL (0.0-0.2); Basophils % 0.5 %; Eosinophils # 0.1 K/mcL (0.0-0.6); Hematocrit 32.6 % (35.3-44.9); Hemoglobin 10.5 g/dL (11.5-15.4); Immature Granulocytes % 0.6 % (0-4); Lymphocytes # 2.6 K/mcL (0.6-4.6); Lymphocytes % 23.8 %; Mean Corpuscular HGB Conc 32.2 g/dL (31.6-35.5); Mean Corpuscular Hemoglobin 29.4 pg (28.0-33.3); Mean Corpuscular Volume 91.3 fL (83.0-100.0); Mean Platelet Volume 11.6 fL (9.4-12.4); Monocytes # 0.9 K/mcL (0.0-1.3); Monocytes % 8.3 %; Neutrophils # 7.1 K/mcL (1.6-8.9); Platelet Count 213 K/mcL (140-400); Red Blood Count 3.57 M/mcL (3.82-4.97); Segmented Neutrophils % 65.8 %
[2016-11-08 01:43] LABS: BUN/Creatinine Ratio 13 (6-26); Blood Urea Nitrogen 8 mg/dL (7-20); Calcium 8.8 mg/dL (8.6-10.8); Carbon Dioxide 27 mEq/L (19-29); Chloride 102 mEq/L (98-109); Glucose 215 mg/dL (70-99); Osmolality,Calculated 287 (280-300); Potassium 3.9 mEq/L (3.5-4.5); Sodium 136 mEq/L (136-145); eGFR For African Americans > 60 (> 60); eGFR For Non-African Americans > 60 (> 60)
[2016-11-08] MEDS: *HR* Heparin 5,000 UNIT/ML VIAL SQ SCH ×2 (06:15→16:57)
[2016-11-08] MEDS: Furosemide 20 MG/2 ML VIAL IVP SCH ×2 (07:37→16:57)
[2016-11-08] MEDS: Aspirin 81 MG TAB.CHEW PO SCH (07:38)
[2016-11-08] MEDS: Insulin DETEMIR 100 UNIT/ML X5UNITS SQ SCH (08:47)
[2016-11-08] MEDS: Insulin LISPRO 300 UNITS/3 ML VIAL SQ SCH ×4 (08:48→21:25)
--- NOTE | 2016-11-08 08:51 | Cardiothoracic Progress Note ---
Date of Encounter: 11/08/16 Time of Encounter: 08:49 - Assessment and plan (1) Coronary artery disease Current Visit: Yes Status: Acute Chest x-ray after chest tube removal reveals no pneumothorax. There is a small amount of atelectasis at the left base. Hopefully, the patient can be discharged to an extended care facility early next week. Qualifiers: Coronary Disease-Associated Artery/Lesion type: [place] artery [place] vs. transplanted heart: [place] heart Associated angina: with stable angina Qualified Code(s): I25.118 - Atherosclerotic heart disease of [place] coronary artery with other forms of angina pectoris - Subjective Interval history: The patient has no complaints. Vital Signs, Last 4 Hours Temp Pulse Resp BP Pulse Ox 11/08/16 07:51 98.2 F 92 16 132/69 96 11/08/16 06:00 90 18 132/69 95 Oxgyen Flow Rate Oxygen Flow Rate (LPM) 3 Weight 11/06/16 11/07/16 11/08/16 23:59 23:59 23:59 Weight 147.4 kg 145.1 kg Lungs are clear to percussion and auscultation. Heart is in a normal sinus rhythm. All incisions are healing well without signs of infection and the sternum is stable. - Labs 11/08/16 01:06 11/08/16 01:06 Lab Results, Last 24 hours 11/08/16 11/08/16 01:06 01:06 WBC 10.9 Hgb 10.5 L Hct 32.6 L Plt Count 213 Sodium 136 Potassium 3.9 Chloride 102 Carbon Dioxide 27 BUN 8 Creatinine 0.64 Glucose 215 H Calcium 8.8 - VTE Documentation of Mechanical Device: Intermittent pneumatic compression device Consult Discharge Plan - Plan Referrals: John Lerner CNP [Primary Care Provider] - 11/07/16 9:30 am
--- NOTE | 2016-11-08 15:48 | Internal Med Progress Note ---
Date of Encounter: 11/08/16 Time of Encounter: 15:46 - Assessment and plan (1) Coronary artery disease Current Visit: Yes Status: Acute Qualifiers: Coronary Disease-Associated Artery/Lesion type: [place] artery [place] vs. transplanted heart: [place] heart Associated angina: with stable angina Qualified Code(s): I25.118 - Atherosclerotic heart disease of [place] coronary artery with other forms of angina pectoris (2) Unstable angina Current Visit: Yes Status: Acute (3) Essential hypertension Current Visit: Yes Status: Chronic (4) DMII (diabetes mellitus, type 2) Current Visit: Yes Status: Chronic Qualifiers: Diabetes mellitus complication status: with hyperglycemia Diabetes mellitus jail insulin use: without terminal superintendent use Qualified Code(s): E11.65 - Type 2 diabetes mellitus with hyperglycemia (5) DVT prophylaxis Current Visit: Yes Status: Acute Assessment and plan: 61 y/o female admitted to the hospital for CABG. Patient underwent CABG on 11/05. Hospitalist erik consutled for management of diabetes. # CAD s/p CABG on 11/05/2016 - doing well postoperatively, cardiology following # Essential Hypertension: continue ACEI and BB # DM Type 2 with complicaitons: BG remains in the 200's. Will increase the dose of Levemir to 22 units daily. Continue SSI. Monitor BGM AC and HS. Will restart glipizide and metformin # DVT prophylaxis: Sub Q heparin - Time Spent With Patient 25 - 35 minutes - Subjective Interval history: Patient seen and examined at bedside. She is sitting up in a chair. Reports some anushka at the surgical site. Otherwise denies any complaints. - Constitutional Vitals: Temp Pulse Resp BP Pulse Ox 99.8 F H 87 20 132/69 96 11/08/16 11:33 11/08/16 12:43 11/08/16 11:33 11/08/16 11:33 11/08/16 11:33 General appearance: Present: cooperative, A&O X 3, morbidly obese, answers questions appropriately - Head Head exam: Present: atraumatic, normocephalic - Eye Eye exam: Present: PERRL, conjuntiva pink, sclera anicteric Pupils: Present: PERRL - Neck Neck exam general surgery: Present: supple, trachea midline. Absent: lymphadenopathy - Respiratory Respiratory exam: Present: CTAB. Absent: accessory muscle use, rales, rhonchi, wheezes - Cardiovascular Cardiovascular exam: Present: RRR, +S1, +S2. Absent: diastolic murmur, gallop, rubs, systolic murmur - GI/Abdominal GI/Abdominal exam: Present: normal bowel sounds, soft, no peritoneal signs. Absent: distended, tenderness - Extremities Exam Extremities exam: Present: warm, radial pulses palpable and symetrical. Absent : calf tenderness, cyanotic, pedal edema - Neurological Exam Neurological exam: Present: CN II-XII intact, oriented X3, no focal deficits. Absent: pronater drift, facial droop, speech deficit - Skin Skin exam: Present: dry, intact Internal Medicine: Result - Labs CBC & Chem 7: 11/08/16 01:06 11/08/16 01:06 Labs: Short CBC 11/08/16 Range/Units 01:06 WBC 10.9 (4.3-11.1) K/mcL Hgb 10.5 L (11.5-15.4) g/dL Hct 32.6 L (35.3-44.9) % Plt Count 213 (140-400) K/mcL Neutrophils # 7.1 (1.6-8.9) K/mcL BMP 11/08/16 01:06 Sodium 136 Potassium 3.9 Chloride 102 Carbon Dioxide 27 BUN 8 Creatinine 0.64 Glucose 215 H Calcium 8.8 - ABG Interpretation ABG results: ABG ABG pH 7.38 pH Units (7.32-7.45) 11/05/16 21:46 ABG pCO2 46 mmHg (35-45) H 11/05/16 21:46 ABG pO2 119 mmHg (85-104) H 11/05/16 21:46 ABG O2 Saturation 99 % (95-98) H 11/05/16 21:46 PT/INR, D-dimer PT 13.2 Seconds (9.4-12.1) H 11/06/16 03:37 - VTE Documentation of Mechanical Device: Graduated compression elastic hosiery Consult Discharge Plan - Plan Referrals: John Lerner, TRIM SAWYER [Primary Care Provider] - 11/07/16 9:30 am
[2016-11-08] MEDS: *HR* Metformin 500 MG TABLET PO SCH (16:55)
[2016-11-08] MEDS: *HR* GlipiZIDE 5 MG TABLET PO SCH (16:56)
[2016-11-09] MEDS: *HR* Heparin 5,000 UNIT/ML VIAL SQ SCH ×2 (05:24→16:41)
[2016-11-09] MEDS: *HR* OxyCODONE/APAP 5/325 TABLET PO PRN ×4 (05:24→23:30)
[2016-11-09 05:41] LABS: Basophils # 0.1 K/mcL (0.0-0.2); Basophils % 0.8 %; Eosinophils # 0.2 K/mcL (0.0-0.6); Eosinophils % 2.2 %; Hematocrit 31.3 % (35.3-44.9); Hemoglobin 10.2 g/dL (11.5-15.4); Immature Granulocytes % 0.4 % (0-4); Lymphocytes # 3.1 K/mcL (0.6-4.6); Lymphocytes % 29.1 %; Mean Corpuscular HGB Conc 32.6 g/dL (31.6-35.5); Mean Corpuscular Hemoglobin 29.9 pg (28.0-33.3); Mean Corpuscular Volume 91.8 fL (83.0-100.0); Mean Platelet Volume 11.3 fL (9.4-12.4); Monocytes # 0.8 K/mcL (0.0-1.3); Monocytes % 7.2 %; Neutrophils # 6.4 K/mcL (1.6-8.9); Platelet Count 261 K/mcL (140-400); Red Blood Count 3.41 M/mcL (3.82-4.97); Red Cell Distribution Width 14.4 % (11.5-14.5); Segmented Neutrophils % 60.3 %
[2016-11-09 05:50] LABS: BUN/Creatinine Ratio 17 (6-26); Blood Urea Nitrogen 10 mg/dL (7-20); Calcium 8.8 mg/dL (8.6-10.8); Carbon Dioxide 25 mEq/L (19-29); Chloride 102 mEq/L (98-109); Glucose 185 mg/dL (70-99); Osmolality,Calculated 290 (280-300); Potassium 3.4 mEq/L (3.5-4.5); Sodium 138 mEq/L (136-145); eGFR For African Americans > 60 (> 60); eGFR For Non-African Americans > 60 (> 60)
[2016-11-09] MEDS: Insulin DETEMIR 100 UNIT/ML X5UNITS SQ SCH (08:08)
[2016-11-09] MEDS: *HR* Metformin 500 MG TABLET PO SCH ×2 (08:08→16:39)
[2016-11-09] MEDS: Furosemide 20 MG/2 ML VIAL IVP SCH ×2 (08:08→16:40)
[2016-11-09] MEDS: Aspirin 81 MG TAB.CHEW PO SCH (08:09)
[2016-11-09] MEDS: Insulin LISPRO 300 UNITS/3 ML VIAL SQ SCH ×4 (08:09→21:04)
[2016-11-09] MEDS: *HR* GlipiZIDE 5 MG TABLET PO SCH ×2 (08:09→16:40)
--- NOTE | 2016-11-09 09:39 | Cardiothoracic Progress Note ---
Date of Encounter: 11/09/16 Time of Encounter: 09:37 - Assessment and plan (1) Coronary artery disease Current Visit: Yes Status: Acute I will add by mouth potassium for a potassium of 3.4. Hopefully, the patient can be discharged to a rehabilitation facility in the next 1-2 days. Qualifiers: Coronary Disease-Associated Artery/Lesion type: [place] artery [place] vs. transplanted heart: [place] heart Associated angina: with stable angina Qualified Code(s): I25.118 - Atherosclerotic heart disease of [place] coronary artery with other forms of angina pectoris - Subjective Interval history: The patient has no complaints. Vital Signs, Last 4 Hours Temp Pulse Resp BP Pulse Ox 11/09/16 08:45 97.6 F 96 16 124/77 98 11/09/16 07:50 18 97 Oxgyen Flow Rate Oxygen Flow Rate (LPM) 3 Clinical Data, last 8 Hours Output, Urine Amount 250 Weight 11/07/16 11/08/16 11/09/16 23:59 23:59 23:59 Weight 147.4 kg 145.1 kg 145.5 kg Lungs are clear to percussion and auscultation. Heart is in a normal sinus rhythm. All incisions are healing well without signs of infection and the sternum is stable. - Labs 11/09/16 05:32 11/09/16 05:32 Lab Results, Last 24 hours 11/09/16 11/09/16 05:32 05:32 WBC 10.6 Hgb 10.2 L Hct 31.3 L Plt Count 261 Sodium 138 Potassium 3.4 L Chloride 102 Carbon Dioxide 25 BUN 10 Creatinine 0.60 Glucose 185 H Calcium 8.8 - VTE Documentation of Mechanical Device: Graduated compression elastic hosiery Consult Discharge Plan - Plan Referrals: John Lerner, SYSTEM SAFETY ENGINEER [Primary Care Provider] - 11/07/16 9:30 am
--- NOTE | 2016-11-09 13:42 | Internal Med Progress Note ---
Date of Encounter: 11/09/16 Time of Encounter: 13:39 - Assessment and plan (1) Coronary artery disease Current Visit: Yes Status: Acute Qualifiers: Coronary Disease-Associated Artery/Lesion type: [place] artery [place] vs. transplanted heart: [place] heart Associated angina: with stable angina Qualified Code(s): I25.118 - Atherosclerotic heart disease of [place] coronary artery with other forms of angina pectoris (2) Unstable angina Current Visit: Yes Status: Acute (3) Essential hypertension Current Visit: Yes Status: Chronic (4) DMII (diabetes mellitus, type 2) Current Visit: Yes Status: Chronic Qualifiers: Diabetes mellitus complication status: with hyperglycemia Diabetes mellitus shelter insulin use: without terminal supervisor use Qualified Code(s): E11.65 - Type 2 diabetes mellitus with hyperglycemia (5) DVT prophylaxis Current Visit: Yes Status: Acute Assessment and plan: 61 y/o female admitted to the hospital for CABG. Patient underwent CABG on 11/05. Hospitalist erik consutled for management of diabetes. # CAD s/p CABG on 11/05/2016 - doing well postoperatively, cardiology following # Essential Hypertension: continue ACEI and BB # Hypokalemia: On replacement protocol. # DM Type 2 with complications: BG remains in the 200's. Will increase the dose of Levemir to 22 units daily. Continue SSI. Monitor BGM AC and HS. Restart glipizide and metformin. A1C of 12 on admission reflective of uncontrolled DM. Needs to be discharged home on insulin. Given compliance issues will use once daily insulin dose with Levemir or Lantus on discharge. Will do SSI while a [facility]. Eventual plan to d/c home from [place] on once daily insulin. # DVT prophylaxis: Sub Q heparin - Time Spent With Patient 25 - 35 minutes - Subjective Interval history: Patient seen and examined at bedside. She is sitting up in a chair. Reports some pain at the surgical site. Otherwise denies any complaints. - Constitutional Vitals: Temp Pulse Resp BP Pulse Ox 98.1 F 89 16 129/72 98 11/09/16 11:10 11/09/16 12:43 11/09/16 11:43 11/09/16 11:10 11/09/16 11:43 General appearance: Present: cooperative, A&O X 3, morbidly obese, answers questions appropriately - Head Head exam: Present: atraumatic, normocephalic - Eye Eye exam: Present: PERRL, conjuntiva pink, sclera anicteric Pupils: Present: PERRL - Neck Neck exam general surgery: Present: supple, trachea midline. Absent: lymphadenopathy - Respiratory Respiratory exam: Present: chest wall tenderness (surgical site clean. ), CTAB. Absent: accessory muscle use, rales, rhonchi, wheezes - Cardiovascular Cardiovascular exam: Present: RRR, +S1, +S2. Absent: diastolic murmur, gallop, rubs, systolic murmur - GI/Abdominal GI/Abdominal exam: Present: normal bowel sounds, soft, no peritoneal signs. Absent: distended, tenderness - Extremities Exam Extremities exam: Present: warm, radial pulses palpable and symetrical. Absent : calf tenderness, cyanotic, pedal edema - Neurological Exam Neurological exam: Present: CN II-XII intact, oriented X3, no focal deficits. Absent: pronater drift, facial droop, speech deficit - Skin Skin exam: Present: dry, intact Internal Medicine: Result - Labs CBC & Chem 7: 11/09/16 05:32 11/09/16 05:32 Labs: Short CBC 11/09/16 Range/Units 05:32 WBC 10.6 (4.3-11.1) K/mcL Hgb 10.2 L (11.5-15.4) g/dL Hct 31.3 L (35.3-44.9) % Plt Count 261 (140-400) K/mcL Neutrophils # 6.4 (1.6-8.9) K/mcL BMP 11/09/16 05:32 Sodium 138 Potassium 3.4 L Chloride 102 Carbon Dioxide 25 BUN 10 Creatinine 0.60 Glucose 185 H Calcium 8.8 - ABG Interpretation ABG results: ABG ABG pH 7.38 pH Units (7.32-7.45) 11/05/16 21:46 ABG pCO2 46 mmHg (35-45) H 11/05/16 21:46 ABG pO2 119 mmHg (85-104) H 11/05/16 21:46 ABG O2 Saturation 99 % (95-98) H 11/05/16 21:46 PT/INR, D-dimer PT 13.2 Seconds (9.4-12.1) H 11/06/16 03:37 - VTE Documentation of Mechanical Device: Graduated compression elastic hosiery Consult Discharge Plan - Plan Referrals: John Lerner, KIT [Primary Care Provider] - 11/07/16 9:30 am
[2016-11-10] MEDS: *HR* Heparin 5,000 UNIT/ML VIAL SQ SCH ×2 (05:02→17:01)
[2016-11-10 05:15] LABS: Basophils # 0.1 K/mcL (0.0-0.2); Basophils % 0.8 %; Eosinophils # 0.4 K/mcL (0.0-0.6); Eosinophils % 3.5 %; Hematocrit 32.4 % (35.3-44.9); Hemoglobin 10.5 g/dL (11.5-15.4); Immature Granulocytes % 0.7 % (0-4); Immature Platelets 7.9 % (1.1-6.1); Lymphocytes # 2.8 K/mcL (0.6-4.6); Lymphocytes % 26.8 %; Mean Corpuscular HGB Conc 32.4 g/dL (31.6-35.5); Mean Corpuscular Hemoglobin 29.6 pg (28.0-33.3); Mean Corpuscular Volume 91.3 fL (83.0-100.0); Mean Platelet Volume 10.8 fL (9.4-12.4); Monocytes # 0.8 K/mcL (0.0-1.3); Monocytes % 7.5 %; Neutrophils # 6.4 K/mcL (1.6-8.9); Nucleated Red Blood Cells 0.2 /100 WBC (0); Platelet Count 302 K/mcL (140-400); Red Blood Count 3.55 M/mcL (3.82-4.97); Red Cell Distribution Width 14.1 % (11.5-14.5); Segmented Neutrophils % 60.7 %
[2016-11-10 05:35] LABS: BUN/Creatinine Ratio 17 (6-26); Blood Urea Nitrogen 10 mg/dL (7-20); Calcium 8.8 mg/dL (8.6-10.8); Carbon Dioxide 24 mEq/L (19-29); Chloride 106 mEq/L (98-109); Glucose 141 mg/dL (70-99); Magnesium 1.4 mg/dL (1.6-2.6); Osmolality,Calculated 291 (280-300); Potassium 3.6 mEq/L (3.5-4.5); Sodium 140 mEq/L (136-145); eGFR For African Americans > 60 (> 60); eGFR For Non-African Americans > 60 (> 60)
[2016-11-10] MEDS: Furosemide 20 MG/2 ML VIAL IVP SCH ×2 (07:52→17:02)
[2016-11-10] MEDS: *HR* GlipiZIDE 5 MG TABLET PO SCH ×2 (07:53→17:02)
[2016-11-10] MEDS: *HR* Metformin 500 MG TABLET PO SCH ×2 (07:53→17:03)
[2016-11-10] MEDS: *HR* OxyCODONE/APAP 5/325 TABLET PO PRN ×2 (07:53→21:14)
[2016-11-10] MEDS: Aspirin 81 MG TAB.CHEW PO SCH (07:54)
[2016-11-10] MEDS: Insulin LISPRO 300 UNITS/3 ML VIAL SQ SCH ×4 (07:55→21:14)
[2016-11-10] MEDS ORDERED: Magnesium Sulfate 2 GM in D5% in Water 100 ML IVPB ONE (08:11)
[2016-11-10] MEDS: Insulin DETEMIR 100 UNIT/ML X5UNITS SQ SCH (08:30)
--- NOTE | 2016-11-10 08:49 | Discharge Summary ---
Date of Encounter: 11/10/16 Time of Encounter: 08:43 - Discharge Diagnosis (1) Coronary artery disease Priority: Primary Status: Acute Qualifiers: Coronary Disease-Associated Artery/Lesion type: [place] artery [place] vs. transplanted heart: [place] heart Associated angina: with stable angina Qualified Code(s): I25.118 - Atherosclerotic heart disease of [place] coronary artery with other forms of angina pectoris - Discharge Medications Prescriptions: OxyCODONE/APAP 5/325 [Percocet 5/325 MG] 1 each PO Q4HR PRN #30 tablet PRN Reason: Mild To Moderate Pain Home Medications: Amitriptyline [Elavil] 25 mg PO HS 10/29/16 [History] Aspirin [Lo-Dose Aspirin EC] 81 mg PO DAILY 10/29/16 [History] Clopidogrel [Plavix] 75 mg PO DAILY 10/29/16 [History] Enalapril Maleate [Vasotec] 10 mg PO DAILY 10/29/16 [History] GlipiZIDE [Glipizide] 10 mg PO BID 10/29/16 [History] Indapamide [Lozol] 2.5 mg PO DAILY 10/29/16 [History] Linagliptin [Tradjenta] 5 mg PO DAILY 10/29/16 [History] Metformin HCl [Glucophage] 1,000 mg PO BID 10/29/16 [History] Metoprolol [Lopressor] 100 mg PO DAILY 10/29/16 [History] Simvastatin [Zocor] 40 mg PO HS 10/29/16 [History] Insulin DETEMIR [Levemir] 22 unit SQ DAILY [id number] 11/10/16 [Rx] Insulin LISPRO [HumaLOG] 0 units SQ HS vial 11/10/16 [Rx] Insulin LISPRO [HumaLOG] 0 units SQ TIDAC vial 11/10/16 [Rx] OxyCODONE/APAP 5/325 [Percocet 5/325 MG] 1 each PO Q4HR PRN #30 tablet 11/10/16 [Rx] Allergies/Adverse Reactions: Allergies No Known Allergies Allergy (Unverified 09/09/16 10:25) Date of admission: 10/29/16 13:37 Primary care physician: John Lerner CNP Consults: 11/07/16 09:04 Consult for Pharmacy Education [CONS] Routine Reason for Consult: Post-Op Heart Call Completed: Yes Consult to Occupational Therapy [CONS] Routine Comment: Evaluate, develop and implement POC Consult to Physical Therapy [CONS] Routine Comment: Evaluate, develop and implement POC 11/07/16 09:26 Consult to Vocational Aide [CONS] Routine Comment: 11/07/16 10:11 Consult to Cardiac Rehabilitation-Phase1 [CONS] Routine Comment: Reason for Consult: s/p cabg 11/05 Call Completed: Yes Consult to Biodiesel Operations Manager [CONS] Routine Reason for SW Consult: discharge plans Procedure(s) Performed: November 05, 2016. Coronary artery bypass grafting 2, utilizing the left internal mammary artery. Discharging clinician: Philipp Rainey Anticipated date of discharge: 11/10/16 - Patient Status Disposition: Transfer Intermediate Care Fac Condition: Fair Functional capacity at discharge: independent ambulation Overall status at discharge: patient is progressing back to baseline - Discharge Instructions Follow Up With: John Lerner CNP [Primary Care Provider] - 11/07/16 9:30 am - Hospital Course Hospital course: Ms. Rosales is a 61 year old female The patient is a 61-year-old female who presented with a positive stress test. She did have a history of hypertension and diabetes. Her hemoglobin A1c on admission was greater than 12. She had had a myocardial infarction in 2012 and stent placement in 2012. Cardiac catheterization revealed an ejection fraction of 45%. The LAD and diagonal were both 99% blocked. She had been on Plavix and this was stopped prior to surgery. On November 05, 2016 we took her to the operating room for coronary artery bypass grafting 2, utilizing her left internal mammary artery. The intermediate branch was quite small and was not able to be grafted. The patient tolerated the procedure well. On November 06 we weaned her drips and left her in the ICU. On November 07 we removed her chest tubes and pacing wires and transferred her to the floor. The patient was seen by the hospitalist and director of science for her diabetes. He otherwise did well and was transferred to a rehabilitation facility on November 10. At that time she was afebrile. Heart was in a normal sinus rhythm. Lungs were clear to percussion and auscultation. All incisions were healing well without signs of infection and the sternum was stable. Discharge medications are on the [facility]MyBest and include Percocet for pain. He did check the [place] automated Rx reporting system. The patient was given a one-week supply and appropriate precautions were given. She was postoperative. She was to return to a diabetic diet. She was to walk as much as possible but to avoid heavy lifting for a total of 3 months after surgery. He was to avoid driving for 1 month. She was to follow up and see me in the office in 4 weeks as directed. She was to follow up with her primary care doctor and drawbridge tender as directed. She was to call sooner for any difficulties. She was somewhat reluctant, but finally agreed to go on insulin at home. - Time Spent with Patient Total time spent providing and/or coordinating discharge services: Physical Examination Vital Signs, Last 4 Hours Temp Pulse Resp BP Pulse Ox 11/10/16 08:00 98.5 F 100 16 140/74 96 11/10/16 07:34 98.5 F 100 16 140/74 96 11/10/16 04:48 94 Open [facility] Registry Aspirin Cont/Prescribed at DC: Yes Beta Raphael Cont/Prescribed at DC: Yes Statin Cont/Prescribed at DC: Yes AMANDA/ARB Cont/Prescribed at DC: Yes - VTE Documentation of Mechanical Device: Graduated compression elastic hosiery
--- NOTE | 2016-11-10 08:59 | Physician Discharge Referral ---
ExtendedCare Referral Info Transfer To: rehab facility Provider in Charge: Philipp Rainey MD Provider in Charge after Transfer: Other (F director) Institutional Level of Care: Intermediate - MR - Diagnosis (1) Coronary artery disease Priority: Primary (s/p CABG 11/05/2016) Status: Acute - Transfer Medications Prescriptions: OxyCODONE/APAP 5/325 [Percocet 5/325 MG] 1 each PO Q4HR PRN #30 tablet PRN Reason: Mild To Moderate Pain Home Medications: Amitriptyline [Elavil] 25 mg PO HS 10/29/16 [History] Aspirin [Lo-Dose Aspirin EC] 81 mg PO DAILY 10/29/16 [History] Clopidogrel [Plavix] 75 mg PO DAILY 10/29/16 [History] Enalapril Maleate [Vasotec] 10 mg PO DAILY 10/29/16 [History] GlipiZIDE [Glipizide] 10 mg PO BID 10/29/16 [History] Indapamide [Lozol] 2.5 mg PO DAILY 10/29/16 [History] Linagliptin [Tradjenta] 5 mg PO DAILY 10/29/16 [History] Metformin HCl [Glucophage] 1,000 mg PO BID 10/29/16 [History] Metoprolol [Lopressor] 100 mg PO DAILY 10/29/16 [History] Simvastatin [Zocor] 40 mg PO HS 10/29/16 [History] Insulin DETEMIR [Levemir] 22 unit SQ DAILY [id number] 11/10/16 [Rx] Insulin LISPRO [HumaLOG] 0 units SQ HS vial 11/10/16 [Rx] Insulin LISPRO [HumaLOG] 0 units SQ TIDAC vial 11/10/16 [Rx] OxyCODONE/APAP 5/325 [Percocet 5/325 MG] 1 each PO Q4HR PRN #30 tablet 11/10/16 [Rx] Allergies/Adverse Reactions: Allergies No Known Allergies Allergy (Unverified 09/09/16 10:25) - Respiratory Orders Smoking Cessation: Smoking cessation has been advised. For more information, call the [place] Tobacco Quit Line at 4-702-QHTU-NOW. - Ancillary Orders May use pressure relief devices daily prn, May go on REY w/family/respon constitution party w /meds at nurse discretion PRN, May have alcoholic beverages, May consult with Dentist, Clinical Dietician, Torts Law Professor PRN - Advance Directives Code Status: Full Code - Mobility Orders Ambulate - Rehabiliation Orders Rehab Potential: Fair Rehab Orders: Sternal Precautions, ROM Exercises, Evaluation for Physical Therapy, Evaluation for Occupational Therapy - Treatments Skin tear care topically daily PRN per policy, May check for fecal impaction rectally daily PRN, Fleet enema rectally every other day PRN cleansing purposes - Diet Orders No Concentrated Sweets CERTIFICATION: I certify that the transfer of the above named patient to an Extended Care Facility is necessary for the continuing treatment of the diagnosis listed. The above information is true and accurate reflection of patient's current condition. Confidential - Redisclosure prohibited without a patient's written consent.
--- NOTE | 2016-11-10 14:32 | Internal Med Progress Note ---
Date of Encounter: 11/10/16 Time of Encounter: 14:30 - Assessment and plan (1) Coronary artery disease Current Visit: Yes Status: Acute Qualifiers: Coronary Disease-Associated Artery/Lesion type: [place] artery [place] vs. transplanted heart: [place] heart Associated angina: with stable angina Qualified Code(s): I25.118 - Atherosclerotic heart disease of [place] coronary artery with other forms of angina pectoris (2) Unstable angina Current Visit: Yes Status: Acute (3) Essential hypertension Current Visit: Yes Status: Chronic (4) DMII (diabetes mellitus, type 2) Current Visit: Yes Status: Chronic Qualifiers: Diabetes mellitus complication status: with hyperglycemia Diabetes mellitus assisted insulin use: without terminal press operator use Qualified Code(s): E11.65 - Type 2 diabetes mellitus with hyperglycemia (5) DVT prophylaxis Current Visit: Yes Status: Acute Assessment and plan: 61 y/o female admitted to the hospital for CABG. Patient underwent CABG on 11/05. Hospitalist erik consutled for management of diabetes. # CAD s/p CABG on 11/05/2016, doing well postoperatively, cardiology following # Essential Hypertension: continue ACEI and BB. fairly controlled # Hypokalemia and hypomagnesemia: On replacement protocol. # DM Type 2 with complications: Levemir increased to 22 units daily. Continue SSI. Monitor BGM AC and HS. Restarted glipizide and metformin. A1C of 12 on admission reflective of uncontrolled DM. Needs to be discharged home on insulin. Given compliance issues will use once daily insulin dose with Levemir or Lantus on discharge. Will do SSI while at [place]. Eventual plan to d/c home from [place] on once daily insulin. # DVT prophylaxis: Sub Q heparin - Time Spent With Patient 25 - 35 minutes - Subjective Interval history: Patient seen and examined at bedside. She is sitting up in a chair. Reports some pain at the surgical site. Otherwise denies any complaints. Had discussion with her regarding using insulin which she has agreed to. Patient was refusing this before. - Constitutional Vitals: Temp Pulse Resp BP Pulse Ox 98 F 90 16 122/48 95 11/10/16 12:07 11/10/16 12:07 11/10/16 12:07 11/10/16 12:07 11/10/16 12:07 General appearance: Present: cooperative, A&O X 3, morbidly obese, answers questions appropriately - Head Head exam: Present: atraumatic, normocephalic - Eye Eye exam: Present: PERRL, conjuntiva pink, sclera anicteric Pupils: Present: PERRL - Neck Neck exam general surgery: Present: supple, trachea midline. Absent: lymphadenopathy - Respiratory Respiratory exam: Present: CTAB. Absent: accessory muscle use, rales (surgical site appears clean), rhonchi, wheezes - Cardiovascular Cardiovascular exam: Present: RRR, +S1, +S2. Absent: diastolic murmur, gallop, rubs, systolic murmur - GI/Abdominal GI/Abdominal exam: Present: normal bowel sounds, soft, no peritoneal signs. Absent: distended, tenderness - Extremities Exam Extremities exam: Present: warm, radial pulses palpable and symetrical. Absent : calf tenderness, cyanotic, pedal edema - Neurological Exam Neurological exam: Present: CN II-XII intact, oriented X3, no focal deficits. Absent: pronater drift, facial droop, speech deficit - Skin Skin exam: Present: dry, intact Internal Medicine: Result - Labs CBC & Chem 7: 11/10/16 05:05 11/10/16 05:05 Labs: Short CBC 11/10/16 Range/Units 05:05 WBC 10.5 (4.3-11.1) K/mcL Hgb 10.5 L (11.5-15.4) g/dL Hct 32.4 L (35.3-44.9) % Plt Count 302 (140-400) K/mcL Neutrophils # 6.4 (1.6-8.9) K/mcL BMP 11/10/16 05:05 Sodium 140 Potassium 3.6 Chloride 106 Carbon Dioxide 24 BUN 10 Creatinine 0.58 Glucose 141 H Calcium 8.8 - ABG Interpretation ABG results: ABG ABG pH 7.38 pH Units (7.32-7.45) 11/05/16 21:46 ABG pCO2 46 mmHg (35-45) H 11/05/16 21:46 ABG pO2 119 mmHg (85-104) H 11/05/16 21:46 ABG O2 Saturation 99 % (95-98) H 11/05/16 21:46 PT/INR, D-dimer PT 13.2 Seconds (9.4-12.1) H 11/06/16 03:37 - VTE Documentation of Mechanical Device: Graduated compression elastic hosiery Consult Discharge Plan - Plan Referrals: John Lerner, KIT [Primary Care Provider] - (patient is going to [facility] no PCP appointment needed) Vijay Goins MD [Partnered Physician] - 11/15/16 8:00 am Philipp Rainey MD [Partnered Physician] - 12/11/16 1:00 pm Prescriptions: OxyCODONE/APAP 5/325 [Percocet 5/325 MG] 1 each PO Q4HR PRN #30 tablet PRN Reason: Mild To Moderate Pain
[2016-11-11] MEDS: *HR* OxyCODONE/APAP 5/325 TABLET PO PRN ×3 (05:17→22:36)
[2016-11-11] MEDS: *HR* Heparin 5,000 UNIT/ML VIAL SQ SCH ×2 (05:17→21:09)
[2016-11-11 06:36] LABS: Basophils # 0.1 K/mcL (0.0-0.2); Basophils % 0.7 %; Eosinophils # 0.3 K/mcL (0.0-0.6); Eosinophils % 3.3 %; Hemoglobin 9.8 g/dL (11.5-15.4); Immature Granulocytes % 0.6 % (0-4); Lymphocytes # 2.8 K/mcL (0.6-4.6); Lymphocytes % 29.6 %; Mean Corpuscular HGB Conc 31.6 g/dL (31.6-35.5); Mean Corpuscular Hemoglobin 29.3 pg (28.0-33.3); Mean Corpuscular Volume 92.8 fL (83.0-100.0); Mean Platelet Volume 10.7 fL (9.4-12.4); Monocytes # 0.7 K/mcL (0.0-1.3); Neutrophils # 5.7 K/mcL (1.6-8.9); Platelet Count 281 K/mcL (140-400); Red Blood Count 3.34 M/mcL (3.82-4.97); Red Cell Distribution Width 14.5 % (11.5-14.5); Segmented Neutrophils % 58.8 %
[2016-11-11 06:58] LABS: BUN/Creatinine Ratio 16 (6-26); Blood Urea Nitrogen 10 mg/dL (7-20); Carbon Dioxide 24 mEq/L (19-29); Chloride 106 mEq/L (98-109); Glucose 111 mg/dL (70-99); Osmolality,Calculated 288 (280-300); Potassium 3.9 mEq/L (3.5-4.5); Sodium 139 mEq/L (136-145); eGFR For African Americans > 60 (> 60); eGFR For Non-African Americans > 60 (> 60)
--- NOTE | 2016-11-11 08:23 | Cardiothoracic Progress Note ---
Date of Encounter: 11/11/16 Time of Encounter: 08:21 - Assessment and plan (1) Coronary artery disease Current Visit: Yes Status: Acute The patient is okay for discharge. Discharge is pending a rehabilitation bed. Qualifiers: Coronary Disease-Associated Artery/Lesion type: [place] artery [place] vs. transplanted heart: [place] heart Associated angina: with stable angina Qualified Code(s): I25.118 - Atherosclerotic heart disease of [place] coronary artery with other forms of angina pectoris - Subjective Interval history: The patient has no complaints. Vital Signs, Last 4 Hours Temp Pulse Resp BP Pulse Ox 11/11/16 07:30 98.2 F 86 16 140/65 97 11/11/16 04:50 97.9 F 88 16 147/76 98 Oxgyen Flow Rate Oxygen Flow Rate (LPM) 3 Weight 11/09/16 11/10/16 11/11/16 23:59 23:59 23:59 Weight 145.5 kg 148.4 kg 146.4 kg Lungs are clear to percussion and auscultation. Heart is in a normal sinus rhythm. All incisions are healing well without signs of infection and the sternum is stable. - Labs 11/11/16 06:24 11/11/16 06:24 Lab Results, Last 24 hours 11/11/16 11/11/16 06:24 06:24 WBC 9.6 Hgb 9.8 L Hct 31.0 L Plt Count 281 Sodium 139 Potassium 3.9 Chloride 106 Carbon Dioxide 24 BUN 10 Creatinine 0.63 Glucose 111 H Calcium 9.0 - VTE Documentation of Mechanical Device: Graduated compression elastic hosiery Consult Discharge Plan - Plan Referrals: John Lerner, BILINGUAL SALES ASSISTANT [Primary Care Provider] - (patient is going to [facility] no PCP appointment needed) Vijay Goins MD [Partnered Physician] - 11/15/16 8:00 am Philipp Rainey MD [Partnered Physician] - 12/11/16 1:00 pm Prescriptions: OxyCODONE/APAP 5/325 [Percocet 5/325 MG] 1 each PO Q4HR PRN #30 tablet PRN Reason: Mild To Moderate Pain
[2016-11-11] MEDS: Aspirin 81 MG TAB.CHEW PO SCH (08:35)
[2016-11-11] MEDS: *HR* Metformin 500 MG TABLET PO SCH ×2 (08:36→17:31)
[2016-11-11] MEDS: Furosemide 20 MG/2 ML VIAL IVP SCH ×2 (08:36→17:30)
[2016-11-11] MEDS: *HR* GlipiZIDE 5 MG TABLET PO SCH ×2 (08:36→17:30)
[2016-11-11] MEDS: Insulin LISPRO 300 UNITS/3 ML VIAL SQ SCH ×4 (08:41→21:10)
[2016-11-11] MEDS: Insulin DETEMIR 100 UNIT/ML X5UNITS SQ SCH (08:50)
--- NOTE | 2016-11-11 12:49 | Internal Med Progress Note ---
Date of Encounter: 11/11/16 Time of Encounter: 15:59 - Assessment and plan (1) Coronary artery disease Current Visit: Yes Status: Acute Qualifiers: Coronary Disease-Associated Artery/Lesion type: [place] artery [place] vs. transplanted heart: [place] heart Associated angina: with stable angina Qualified Code(s): I25.118 - Atherosclerotic heart disease of [place] coronary artery with other forms of angina pectoris (2) Unstable angina Current Visit: Yes Status: Acute (3) Essential hypertension Current Visit: Yes Status: Chronic (4) DMII (diabetes mellitus, type 2) Current Visit: Yes Status: Chronic Qualifiers: Diabetes mellitus complication status: with hyperglycemia Diabetes mellitus custodial insulin use: without tank terminal gauger use Qualified Code(s): E11.65 - Type 2 diabetes mellitus with hyperglycemia (5) DVT prophylaxis Current Visit: Yes Status: Acute Assessment and plan: 61 y/o female admitted to the hospital for CABG. Patient underwent CABG on 11/05. Hospitalist erik consutled for management of diabetes. # CAD s/p CABG on 11/05/2016, doing well postoperatively, cardiology following # Essential Hypertension: continue ACEI and BB. fairly controlled # Hypokalemia and hypomagnesemia: On replacement protocol. # DM Type 2 with complications: Levemir increased to 22 units daily. Continue SSI. Monitor BGM AC and HS. Restarted glipizide and metformin. A1C of 12 on admission reflective of uncontrolled DM. Needs to be discharged home on insulin. Given compliance issues will use once daily insulin dose with Levemir discharge. # DVT prophylaxis: Sub Q heparin - Time Spent With Patient 25 - 35 minutes - Subjective Interval history: Patient seen and examined at bedside. She is sitting up in a chair. Reports some pain at the surgical site. Otherwise denies any complaints. Had discussion with her regarding using insulin which she has agreed to. Patient was refusing this before. - Constitutional Vitals: Temp Pulse Resp BP Pulse Ox 98.0 F 80 18 117/53 96 11/11/16 11:09 11/11/16 11:09 11/11/16 11:09 11/11/16 11:09 11/11/16 11:09 General appearance: Present: cooperative, A&O X 3, morbidly obese, answers questions appropriately - Head Head exam: Present: atraumatic, normocephalic - Eye Eye exam: Present: PERRL, conjuntiva pink, sclera anicteric Pupils: Present: PERRL - Neck Neck exam general surgery: Present: supple, trachea midline. Absent: lymphadenopathy - Respiratory Respiratory exam: Present: CTAB. Absent: accessory muscle use, rales, rhonchi, wheezes - Cardiovascular Cardiovascular exam: Present: RRR, +S1, +S2. Absent: diastolic murmur ( surgical site clean, mild tenderness on palpation), gallop, rubs, systolic murmur - GI/Abdominal GI/Abdominal exam: Present: normal bowel sounds, soft, no peritoneal signs. Absent: distended, tenderness - Extremities Exam Extremities exam: Present: warm, radial pulses palpable and symetrical. Absent : calf tenderness, cyanotic, pedal edema - Neurological Exam Neurological exam: Present: CN II-XII intact, oriented X3, no focal deficits. Absent: pronater drift, facial droop, speech deficit - Skin Skin exam: Present: dry, intact Internal Medicine: Result - Labs CBC & Chem 7: 11/11/16 06:24 11/11/16 06:24 Labs: Short CBC 11/11/16 Range/Units 06:24 WBC 9.6 (4.3-11.1) K/mcL Hgb 9.8 L (11.5-15.4) g/dL Hct 31.0 L (35.3-44.9) % Plt Count 281 (140-400) K/mcL Neutrophils # 5.7 (1.6-8.9) K/mcL BMP 11/11/16 06:24 Sodium 139 Potassium 3.9 Chloride 106 Carbon Dioxide 24 BUN 10 Creatinine 0.63 Glucose 111 H Calcium 9.0 - ABG Interpretation ABG results: ABG ABG pH 7.38 pH Units (7.32-7.45) 11/05/16 21:46 ABG pCO2 46 mmHg (35-45) H 11/05/16 21:46 ABG pO2 119 mmHg (85-104) H 11/05/16 21:46 ABG O2 Saturation 99 % (95-98) H 11/05/16 21:46 PT/INR, D-dimer PT 13.2 Seconds (9.4-12.1) H 11/06/16 03:37 - VTE Documentation of Mechanical Device: Graduated compression elastic hosiery Consult Discharge Plan - Plan Referrals: John Lerner, PADDLE DYEING MACHINE OPERATOR [Primary Care Provider] - (patient is going to [facility] no PCP appointment needed) Vijay Goins MD [Partnered Physician] - 11/15/16 8:00 am Philipp Rainey MD [Partnered Physician] - 12/11/16 1:00 pm Prescriptions: OxyCODONE/APAP 5/325 [Percocet 5/325 MG] 1 each PO Q4HR PRN #30 tablet PRN Reason: Mild To Moderate Pain Insulin LISPRO [Humalog Kwikpen U-100] 100 unit SQ TIDAC 15 Days
--- NOTE | 2016-11-11 16:01 | Physician Discharge Referral ---
Home Health/Hosp Referral Info Transfer to: Home Health Attending Provider: Philipp Rainey MD Provider in Charge Post Discharge: PCP - Diagnosis (1) Coronary artery disease Priority: Primary Status: Acute - Respiratory Orders Smoking Cessation: Smoking cessation has been advised. For more information, call the [place] Tobacco Quit Line at 9-018-WRWF-NOW. - Dressing/Wound Care Site: chest tube sites Type of Dressing/Treatments w/Frequency: Change chest tube sites once per day-dry 4x4's - Diet/Nutrition Diet/Nutrition Orders: No Concentrated Sweets - Activity Activity Orders: Up ad sae, Ambulate, Chair - Services Needed Following services are medically necessary services: Nursing, Home Health Aide, Physical Therapy, Occupational Therapy - Transfer Medications Prescriptions: OxyCODONE/APAP 5/325 [Percocet 5/325 MG] 1 each PO Q4HR PRN #30 tablet PRN Reason: Mild To Moderate Pain Insulin LISPRO [Humalog Kwikpen U-100] 100 unit SQ TIDAC 15 Days Home Medications: Amitriptyline [Elavil] 25 mg PO HS 10/29/16 [History] Aspirin [Lo-Dose Aspirin EC] 81 mg PO DAILY 10/29/16 [History] Clopidogrel [Plavix] 75 mg PO DAILY 10/29/16 [History] Enalapril Maleate [Vasotec] 10 mg PO DAILY 10/29/16 [History] GlipiZIDE [Glipizide] 10 mg PO BID 10/29/16 [History] Indapamide [Lozol] 2.5 mg PO DAILY 10/29/16 [History] Linagliptin [Tradjenta] 5 mg PO DAILY 10/29/16 [History] Metformin HCl [Glucophage] 1,000 mg PO BID 10/29/16 [History] Metoprolol [Lopressor] 100 mg PO DAILY 10/29/16 [History] Simvastatin [Zocor] 40 mg PO HS 10/29/16 [History] Insulin DETEMIR [Levemir] 22 unit SQ DAILY [id number] 11/10/16 [Rx] Insulin LISPRO [HumaLOG] 0 units SQ HS vial 11/10/16 [Rx] Insulin LISPRO [HumaLOG] 0 units SQ TIDAC vial 11/10/16 [Rx] OxyCODONE/APAP 5/325 [Percocet 5/325 MG] 1 each PO Q4HR PRN #30 tablet 11/10/16 [Rx] Insulin LISPRO [Humalog Kwikpen U-100] 100 unit SQ TIDAC 15 Days 11/11/16 [Rx] Allergies/Adverse Reactions: Allergies No Known Allergies Allergy (Unverified 09/09/16 10:25) Certification: Further, I certify that my clinical findings support that this patient is homebound (i.e. absences from home require considerable and taxing effort and are for medical reasons or episcopal services or infrequently or short duration when for other reasons) because: Homebound Reason: Post-surgery restriction and or conditions limit ability to leave home, Leaving home requires considerable and taxing effort due to condition Attestation: My signature below is to certify that this patient is under my care and that I, or nurse practitioner, or a physician's pharmacy technician assistant working with me, has a face-to -face encounter with this patient.
[2016-11-12] MEDS: *HR* Heparin 5,000 UNIT/ML VIAL SQ SCH (05:19)
[2016-11-12 05:48] LABS: Basophils # 0.1 K/mcL (0.0-0.2); Basophils % 0.6 %; Eosinophils # 0.3 K/mcL (0.0-0.6); Eosinophils % 2.4 %; Hematocrit 33.9 % (35.3-44.9); Immature Granulocytes % 0.6 % (0-4); Lymphocytes # 3.5 K/mcL (0.6-4.6); Lymphocytes % 30.5 %; Mean Corpuscular HGB Conc 32.4 g/dL (31.6-35.5); Mean Corpuscular Hemoglobin 30.1 pg (28.0-33.3); Mean Corpuscular Volume 92.9 fL (83.0-100.0); Mean Platelet Volume 10.7 fL (9.4-12.4); Monocytes # 0.7 K/mcL (0.0-1.3); Monocytes % 6.2 %; Neutrophils # 6.8 K/mcL (1.6-8.9); Platelet Count 330 K/mcL (140-400); Red Blood Count 3.65 M/mcL (3.82-4.97); Red Cell Distribution Width 14.3 % (11.5-14.5); Segmented Neutrophils % 59.7 %
[2016-11-12 06:06] LABS: BUN/Creatinine Ratio 16 (6-26); Blood Urea Nitrogen 11 mg/dL (7-20); Calcium 8.9 mg/dL (8.6-10.8); Carbon Dioxide 26 mEq/L (19-29); Chloride 105 mEq/L (98-109); Glucose 169 mg/dL (70-99); Magnesium 1.5 mg/dL (1.6-2.6); Osmolality,Calculated 289 (280-300); Potassium 3.7 mEq/L (3.5-4.5); Sodium 138 mEq/L (136-145); eGFR For African Americans > 60 (> 60); eGFR For Non-African Americans > 60 (> 60)
[2016-11-12] MEDS ORDERED: Magnesium Sulfate 1 GM in D5% in Water 100 ML IVPB ONE (07:35)
[2016-11-12] MEDS: Aspirin 81 MG TAB.CHEW PO SCH (07:45)
[2016-11-12] MEDS: *HR* GlipiZIDE 5 MG TABLET PO SCH (07:45)
[2016-11-12] MEDS: Insulin LISPRO 300 UNITS/3 ML VIAL SQ SCH ×2 (07:46→12:35)
[2016-11-12] MEDS: *HR* Metformin 500 MG TABLET PO SCH (07:46)
[2016-11-12] MEDS: *HR* OxyCODONE/APAP 5/325 TABLET PO PRN (07:46)
--- NOTE | 2016-11-12 08:30 | Cardiothoracic Progress Note ---
Date of Encounter: 11/12/16 Time of Encounter: 08:28 - Assessment and plan (1) Coronary artery disease Current Visit: Yes Status: Acute The patient is recovering well from her CABG 2. She will be discharged home with home health care today. The assessment and plan as outlined above was discussed with the patient and/or family members who expressed understanding and agreement. All questions were answered. Qualifiers: Coronary Disease-Associated Artery/Lesion type: [place] artery [place] vs. transplanted heart: [place] heart Associated angina: with stable angina Qualified Code(s): I25.118 - Atherosclerotic heart disease of [place] coronary artery with other forms of angina pectoris - Subjective Procedure(s) Performed: POD#7 S/P CABG2 Interval history: The patient is sitting comfortably in a chair. She has no complaints of substernal chest pain or shortness of breath. She is ambulating in her room without difficulty. Vital Signs, Last 4 Hours Temp Pulse Resp BP Pulse Ox 11/12/16 07:08 98.1 F 95 16 129/70 96 Oxgyen Flow Rate Oxygen Flow Rate (LPM) 3 Weight 11/10/16 11/11/16 11/12/16 23:59 23:59 23:59 Weight 148.4 kg 146.4 kg 145.5 kg - Physical Examination General: Conversant, No Apparent Distress Neck: No JVD, Normal carotid pulses Cardiac: Reg Rate and Rhythm Incision: No signs of infection, Dry/intact dressing Sternum: Stable Lungs: Normal Breath Sounds, No Wheeze, Rales, Rhonchi Neuro: Alert and responsive, No focal deficits noted Vascular: Normal capillary refill Extremities: No Clubbing, No Cyanosis, No Edema - Labs 11/12/16 05:25 11/12/16 05:25 Lab Results, Last 24 hours 11/12/16 11/12/16 05:25 05:25 WBC 11.3 H Hgb 11.0 L Hct 33.9 L Plt Count 330 Sodium 138 Potassium 3.7 Chloride 105 Carbon Dioxide 26 BUN 11 Creatinine 0.70 Glucose 169 H Calcium 8.9 Magnesium 1.5 L - VTE Documentation of Mechanical Device: Graduated compression elastic hosiery Consult Discharge Plan - Plan Referrals: John Lerner, PLUSH FINISHER [Primary Care Provider] - (patient is [facility] no PCP appointment needed) Vijay Goins MD [Partnered Physician] - 11/15/16 8:00 am Philipp Rainey MD [Partnered Physician] - 12/11/16 1:00 pm Prescriptions: OxyCODONE/APAP 5/325 [Percocet 5/325 MG] 1 each PO Q4HR PRN #30 tablet PRN Reason: Mild To Moderate Pain Insulin LISPRO [Humalog Kwikpen U-100] 100 unit SQ TIDAC 15 Days
[2016-11-12] MEDS: Insulin DETEMIR 100 UNIT/ML X5UNITS SQ SCH (10:02)
--- NOTE | 2016-11-12 11:37 | Internal Med Progress Note ---
Date of Encounter: 11/12/16 Time of Encounter: 11:35 - Assessment and plan (1) Coronary artery disease Current Visit: Yes Status: Acute Qualifiers: Coronary Disease-Associated Artery/Lesion type: [place] artery [place] vs. transplanted heart: [place] heart Associated angina: with stable angina Qualified Code(s): I25.118 - Atherosclerotic heart disease of [place] coronary artery with other forms of angina pectoris (2) Unstable angina Current Visit: Yes Status: Acute (3) Essential hypertension Current Visit: Yes Status: Chronic (4) DMII (diabetes mellitus, type 2) Current Visit: Yes Status: Chronic Qualifiers: Diabetes mellitus complication status: with hyperglycemia Diabetes mellitus retirement insulin use: without equipment operator intermodal yard use Qualified Code(s): E11.65 - Type 2 diabetes mellitus with hyperglycemia (5) DVT prophylaxis Current Visit: Yes Status: Acute Assessment and plan: 61 y/o female admitted to the hospital for CABG. Patient underwent CABG on 11/05. Hospitalist service was consulted for management of diabetes. # CAD s/p CABG on 11/05/2016, doing well postoperatively, cardiology following # Essential Hypertension: continue ACEI and BB. fairly controlled # DM Type 2 with complications: BG within acceptable range. Levemir 22 units SQ qdaily. Continue Glipizide and Metformin. Patient will be discharged to home on Levemir and asked to closely monitor her fingerstick glucose. She demonstrates understanding and is willing to comply at this time. Prescription for insulin and supplies have been transmitted to her preferred pharmacy. Pt is to follow up with PCP after discharge. # DVT prophylaxis: Sub Q heparin #Will sign off at this time, please recall as needed. Thank you for allowing us to participate in the care of this patient. - Subjective Interval history: Patient seen and examined at bedside. REsting comfortably in chair and reports of feeling better compared to the previous day. Due to her insurance issues, patient will not be able to be discharged to rehab but has home health set up. She demonstrates understanding of checking her fingerstick glucose and states she is willing to be compliant with her medical regimen. - Constitutional Vitals: Temp Pulse Resp BP Pulse Ox 98.1 F 95 16 129/70 96 11/12/16 07:08 11/12/16 07:08 11/12/16 07:08 11/12/16 07:08 11/12/16 07:08 General appearance: Present: cooperative, A&O X 3, morbidly obese, answers questions appropriately - Head Head exam: Present: atraumatic, normocephalic - Respiratory Respiratory exam: Present: CTAB. Absent: accessory muscle use, rales, rhonchi, wheezes - Cardiovascular Cardiovascular exam: Present: RRR, +S1 (midline surgical scar-s/p CABG), +S2. Absent: diastolic murmur, gallop, rubs, systolic murmur - GI/Abdominal GI/Abdominal exam: Present: distended (obese), normal bowel sounds, soft, no peritoneal signs. Absent: tenderness - Extremities Exam Extremities exam: Present: pedal edema, warm, radial pulses palpable and symetrical. Absent: calf tenderness - Neurological Exam Neurological exam: Present: alert, oriented X3 - Psychiatric Psychiatric exam: Present: normal affect, normal mood Internal Medicine: Result - Labs CBC & Chem 7: 11/12/16 05:25 11/12/16 05:25 Labs: Short CBC 11/12/16 Range/Units 05:25 WBC 11.3 H (4.3-11.1) K/mcL Hgb 11.0 L (11.5-15.4) g/dL Hct 33.9 L (35.3-44.9) % Plt Count 330 (140-400) K/mcL Neutrophils # 6.8 (1.6-8.9) K/mcL BMP 11/12/16 05:25 Sodium 138 Potassium 3.7 Chloride 105 Carbon Dioxide 26 BUN 11 Creatinine 0.70 Glucose 169 H Calcium 8.9 - ABG Interpretation ABG results: ABG ABG pH 7.38 pH Units (7.32-7.45) 11/05/16 21:46 ABG pCO2 46 mmHg (35-45) H 11/05/16 21:46 ABG pO2 119 mmHg (85-104) H 11/05/16 21:46 ABG O2 Saturation 99 % (95-98) H 11/05/16 21:46 PT/INR, D-dimer PT 13.2 Seconds (9.4-12.1) H 11/06/16 03:37 - VTE Documentation of Mechanical Device: Graduated compression elastic hosiery Consult Discharge Plan - Plan Instructions: Oxycodone/Acetaminophen (By mouth), Insulin Detemir (Injection), Coronary Artery Bypass Graft (DC), Diabetes Mellitus Type 2 in Adults (DC), What is Insulin (DC), Giving an Insulin Injection (DC), Pen Devices for Insulin Administration (DC), Chronic Hypertension (DC), Sternal Precautions (GEN) Referrals: John Lerner CNP [Primary Care Provider] - 11/17/16 12:30 pm () Vijay Goins MD [Partnered Physician] - 11/15/16 8:00 am Philipp Rainey MD [Partnered Physician] - 12/11/16 1:00 pm Prescriptions: OxyCODONE/APAP 5/325 [Percocet 5/325 MG] 1 each PO Q4HR PRN #30 tablet PRN Reason: Mild To Moderate Pain Insulin DETEMIR [Levemir Flextouch] 22 unit SQ DAILY #3 [email or web address] Insulin LISPRO [Humalog Kwikpen U-100] 100 unit SQ TIDAC 15 Days
[2016-11-12 12:23] VITALS: BP 131/68
== END 2016-11-12 13:32 | disposition home health service (06) | DRG 166 ==
LOC: 2NENU 07:33 → INVDIALAB 07:33 → SUATTDRO 13:37 → ICNU 11-05 03:06 → 2NNU 11-07 19:16
PROVIDERS: ADMIT Emergency Medicine; ATTEND Internal Medicine

== ENCOUNTER 2021-06-28 18:09 | Inpatient (IN) ==
[2021-06-28] MEDS ORDERED: 0.9 % Sodium Chloride 1,000 ML IVC ONE ×2 (18:32→19:15)
[2021-06-28 18:56] LABS: Basophils # 0.1 K/mcL (0.0-0.2); Basophils % 0.5 %; Eosinophils % 0.1 %; Hematocrit 50.4 % (35.3-44.9); Hemoglobin 15.7 g/dL (11.5-15.4); Immature Granulocytes % 4.1 % (0-4); Lymphocytes # 1.3 K/mcL (0.6-4.6); Lymphocytes % 5.6 %; Mean Corpuscular HGB Conc 31.2 g/dL (31.6-35.5); Mean Corpuscular Hemoglobin 31.5 pg (28.0-33.3); Mean Platelet Volume 12.7 fL (9.4-12.4); Monocytes # 1.9 K/mcL (0.0-1.3); Monocytes % 8.3 %; Neutrophils # 18.9 K/mcL (1.6-8.9); Platelet Count 327 K/mcL (140-400); Red Blood Count 4.99 M/mcL (3.82-4.97); Red Cell Distribution Width 13.3 % (11.5-14.5); Segmented Neutrophils % 81.4 %; White Blood Count 23.2 K/mcL (4.3-11.1)
[2021-06-28 19:00] LABS: INR 1.1; Prothrombin Time 11.7 Seconds (9.4-12.1)
[2021-06-28 19:05] LABS: VBG HCO3 4 mEq/L (21-27); VBG PCO2 22 mmHg (41-51); VBG PH 6.87 pH Units (7.32-7.42); VBG PO2 64 mmHg (25-50)
[2021-06-28] MEDS ORDERED: 0.9 % Sodium Chloride 2,000 ML ONE (19:14)
[2021-06-28 19:36] LABS: Albumin 3.6 g/dL (3.5-5.7); Albumin/Globulin Ratio 1.2 (1.1-2.2); Bilirubin,Total 0.5 mg/dL (0.3-1.0); Potassium 3.8 mEq/L (3.5-5.1); Total Protein 6.6 g/dL (6.4-8.9); Troponin I 0.04 ng/mL (< 0.04)
[2021-06-28 19:40] LABS: Thyroid Stimulating Hormone 1.405 mcIU/mL (0.340-5.600)
[2021-06-28] MEDS ORDERED: Insulin Regular, Human 100 UNIT/ML IV ONE (19:45)
[2021-06-28] MEDS ORDERED: Vancomycin 2,000 MG/520 ML IV.SOLN IVPB ONE (19:47)
[2021-06-28] MEDS ORDERED: Cefepime HCl 1,000 MG in 0.9 % Sodium Chloride Mini Bag 100 ML IVPB ONE (19:48)
[2021-06-28] MEDS ORDERED: Isovue-370 500 ML BOTTLE IVP ONE (19:49)
[2021-06-28 20:13] LABS: Bilirubin,Urine Negative (Negative); Blood,Urine Negative (Negative); Clarity,Urine Clear (Clear); Color,Urine Light-Yellow (Yellow); Glucose,Urine (UA) >=1000 mg/dL (Normal); Hyaline Casts,Urine Few per lpf (None Seen); Ketones,Urine >150 mg/dL (Negative); Leukocyte Esterase,Urine Negative (Negative); Mucus,Urine Few per lpf (None-Few); Nitrite,Urine Negative (Negative); PH,Urine 5.5 pH Units (5.0-8.0); Protein,Urine 50 mg/dL (Neg-Trace); RBC,Urine 0-3 per hpf (0-3); Specific Gravity,Urine 1.024 (1.010-1.025); Squamous Epithelial Cell,Urine Few per hpf (None-Few); Urobilinogen,Urine Normal (Normal)
[2021-06-28] MEDS ORDERED: Ringers Solution, Lactated 1,000 ML IVC ONE ×2 (20:14→21:04)
[2021-06-28 21:11] LABS: Magnesium 2.1 mg/dL (1.6-2.6)
[2021-06-28] MEDS: Norepinephrine 4 MG/254 ML IV.SOLN IVC SCH (21:53)
[2021-06-28] MEDS ORDERED: Naloxone 0.4 MG/ML INJ IVP PRN (21:55)
[2021-06-28] MEDS ORDERED: Acetaminophen 325 MG TABLET PO PRN (21:55)
[2021-06-28] MEDS ORDERED: Ondansetron 4 MG/2 ML VIAL IVP PRN (21:55)
[2021-06-28 22:25] LABS: VBG HCO3 5 mEq/L (21-27); VBG PCO2 22 mmHg (41-51); VBG PH 6.92 pH Units (7.32-7.42); VBG PO2 71 mmHg (25-50)
[2021-06-28] MEDS ORDERED: D5% in 0.45% NACL 1,000 ML IVC PRN (22:40)
[2021-06-28] MEDS ORDERED: Insulin Regular, Human 100 UNIT/ML IV PRN (22:40)
[2021-06-28] MEDS ORDERED: *HR* Dextrose 50 % in Water (Syg) 50 ML SYRINGE IVP PRN (22:40)
[2021-06-28 22:45] LABS: Troponin I 0.03 ng/mL (< 0.04)
[2021-06-28 23:23] LABS: Influenza A PCR Negative (Negative); Influenza B PCR Negative (Negative); Resp. Syncytial Virus PCR Negative (Negative)
[2021-06-28 23:40] LABS: SARS-CoV-2 by PCR (In House) Negative (Negative)
[2021-06-29] MEDS: 0.9 % Sodium Chloride w KCl 20 MEQ/1,000 ML MLS IVC SCH ×18 (00:21→23:11)
[2021-06-29] MEDS ORDERED: Azithromycin 500 MG in 0.9 % Sodium Chloride 250 ML IVPB SCH (02:00)
[2021-06-29] MEDS ORDERED: *HR* LORazepam 2 MG/ML VIAL IVP ONE (03:19)
[2021-06-29] MEDS: Cefepime HCl 2,000 MG in Water for inj. (sterile) 20 ML IVP SCH ×2 (03:22→11:01)
[2021-06-29 03:25] LABS: VBG HCO3 8 mEq/L (21-27); VBG PCO2 24 mmHg (41-51); VBG PH 7.11 pH Units (7.32-7.42); VBG PO2 149 mmHg (25-50)
[2021-06-29 03:39] LABS: Magnesium 1.4 mg/dL (1.6-2.6); Phosphorous 2.4 mg/dL (2.7-4.5)
[2021-06-29 03:44] LABS: Calcium 8.6 mg/dL (8.6-10.3); Potassium 2.9 mEq/L (3.5-5.1)
[2021-06-29] MEDS ORDERED: Potassium Phosphate 44 MEQ in 0.9 % Sodium Chloride 250 ML IVPB PRN (04:21)
[2021-06-29] MEDS ORDERED: Calcium Gluconate 1gm/50mL 1 GM/50 ML BAG IVPB PRN (04:21)
[2021-06-29 04:45] LABS: Basophils # 0.1 K/mcL (0.0-0.2); Basophils % 0.3 %; Hematocrit 43.5 % (35.3-44.9); Hemoglobin 14.5 g/dL (11.5-15.4); Immature Granulocytes % 1.8 % (0-4); Lymphocytes # 1.4 K/mcL (0.6-4.6); Lymphocytes % 7.7 %; Mean Corpuscular HGB Conc 33.3 g/dL (31.6-35.5); Mean Corpuscular Hemoglobin 31.1 pg (28.0-33.3); Mean Corpuscular Volume 93.3 fL (83.0-100.0); Mean Platelet Volume 12.4 fL (9.4-12.4); Monocytes # 1.2 K/mcL (0.0-1.3); Monocytes % 6.8 %; Neutrophils # 15.1 K/mcL (1.6-8.9); Platelet Count 191 K/mcL (140-400); Red Blood Count 4.66 M/mcL (3.82-4.97); Red Cell Distribution Width 13.1 % (11.5-14.5); Segmented Neutrophils % 83.4 %; White Blood Count 18.1 K/mcL (4.3-11.1)
[2021-06-29 05:02] LABS: Estimated Average Glucose 292 mg/dl; Hemoglobin A1C 11.8 %
[2021-06-29 05:45] LABS: Sodium, Urine 24.2 mEq/L
[2021-06-29] MEDS: D5% in 0.45% NACL w KCl 20 MEQ/1,000 ML MLS IVC PRN ×2 (05:56→09:34)
[2021-06-29 06:40] LABS: Calcium 8.7 mg/dL (8.6-10.3); Potassium 2.8 mEq/L (3.5-5.1)
[2021-06-29] MEDS ORDERED: *HR* EPINEPHrine 1 MG/10 ML SYRINGE IVP ONE (09:51)
[2021-06-29] MEDS ORDERED: Vancomycin 1,500 MG/265 ML IV.SOLN IVPB SCH (10:00)
[2021-06-29] MEDS ORDERED: *HR* Midazolam HCl 5 MG/5 ML VIAL IVP ONE (10:26)
[2021-06-29] MEDS ORDERED: *HR* Midazolam HCl 2 MG/2 ML VIAL IVP ONE (10:26)
[2021-06-29] MEDS ORDERED: *HR* Etomidate 20 MG/10 ML AMPUL IVP ONE (10:26)
[2021-06-29 13:06] LABS: Albumin/Globulin Ratio 1.4 (1.1-2.2); Bilirubin,Total 0.5 mg/dL (0.3-1.0); Calcium 8.5 mg/dL (8.6-10.3); Globulin 2.1 g/dL (2.4-3.5); Magnesium 1.4 mg/dL (1.6-2.6); Phosphorous 1.2 mg/dL (2.7-4.5); Total Protein 5.1 g/dL (6.4-8.9)
[2021-06-29 13:50] LABS: VBG Ionized Calcium 1.11 mmol/L (1.15-1.35)
[2021-06-29] MEDS ORDERED: *HR* Heparin 5,000 UNIT/ML VIAL SQ SCH (14:00)
[2021-06-29] MEDS ORDERED: 0.9 % Sodium Chloride 500 ML ONE (14:30)
[2021-06-29] MEDS ORDERED: Pantoprazole 40 MG VIAL IVP ONE (15:19)
[2021-06-29] MEDS ORDERED: Artificial Tears SOLN 15 ML BOTTLE BOTH EYES PRN (15:22)
[2021-06-29 16:11] LABS: ABG Base Excess -16 mEq/L (-2 to 3); ABG HCO3 12 mEq/L (21-27); ABG Oxygen Saturation 100 % (95-98); ABG PCO2 32 mmHg (35-45); ABG PH 7.17 pH Units (7.32-7.45); ABG PO2 409 mmHg (85-104); ABG TCO2 13 mEq/L (20-26); Blood Gas Modality ASSIST CONTROL; Blood Gas VT 420 cc
[2021-06-29] MEDS ORDERED: Sodium Bicarbonate 150 MEQ in Water for inj. (sterile) 1,000 ML IVC SCH ×2 (16:15→20:36)
[2021-06-29 16:21] LABS: Basophils % 0.2 %; Hematocrit 43.3 % (35.3-44.9); Hemoglobin 14.8 g/dL (11.5-15.4); Immature Granulocytes % 1.3 % (0-4); Immature Platelets 12.4 % (1.1-6.1); Lymphocytes # 1.2 K/mcL (0.6-4.6); Lymphocytes % 6.1 %; Mean Corpuscular HGB Conc 34.2 g/dL (31.6-35.5); Mean Corpuscular Volume 90.6 fL (83.0-100.0); Mean Platelet Volume 13.2 fL (9.4-12.4); Monocytes # 1.4 K/mcL (0.0-1.3); Monocytes % 7.3 %; Neutrophils # 16.3 K/mcL (1.6-8.9); Platelet Count 267 K/mcL (140-400); Red Blood Count 4.78 M/mcL (3.82-4.97); Red Cell Distribution Width 13.3 % (11.5-14.5); Segmented Neutrophils % 85.1 %; White Blood Count 19.1 K/mcL (4.3-11.1)
[2021-06-29 16:26] LABS: INR 1.1; Prothrombin Time 12.4 Seconds (9.4-12.1)
[2021-06-29] MEDS: FentaNYL (PF) 1,000 MCG/100 ML IV.SOLN IVC SCH ×2 (16:29→23:11)
[2021-06-29 16:31] LABS: Activated Partial Thrombo Time 18.9 Seconds (26.0-36.0)
[2021-06-29 16:32] LABS: VBG Ionized Calcium 1.21 mmol/L (1.15-1.35)
[2021-06-29] MEDS: Artificial Tears SOLN 15 ML BOTTLE BOTH EYES SCH ×3 (16:42→23:11)
[2021-06-29] MEDS: Piperacillin/Tazobactam 3.375 GM in 0.9 % Sodium Chloride Mini Bag 100 ML IVPB SCH ×2 (16:43→23:41)
[2021-06-29] MEDS: Pantoprazole 40 MG in 0.9 % Sodium Chloride Mini Bag 100 ML IVC SCH ×2 (16:43→21:56)
[2021-06-29] MEDS ORDERED: Phenylephrine 10 MG in 0.9 % Sodium Chloride 250 ML IVC SCH (16:45)
[2021-06-29] MEDS: Norepinephrine 4 MG/254 ML IV.SOLN IVC SCH ×3 (16:56→20:24)
[2021-06-29] MEDS: Dexmedetomidine HCl 400 MCG/100 ML MLS IVC SCH (16:56)
[2021-06-29] MEDS: Vasopressin 40 UNIT in D5% in Water 100 ML IVC SCH (17:01)
[2021-06-29] MEDS ORDERED: Albumin 25% 25gram/100mL 25 GM/100 ML IV.SOLN ONE (17:02)
[2021-06-29] MEDS ORDERED: Albumin 25% 25gram/100mL 25 GM/100 ML IV.SOLN IVPB ONE (17:23)
[2021-06-29] MEDS: Albumin Human 5% 12.5 GM/250 ML IV.SOLN IVC SCH (17:37)
[2021-06-29 17:45] LABS: Calcium 8.1 mg/dL (8.6-10.3); Magnesium 1.3 mg/dL (1.6-2.6); Phosphorous 2.9 mg/dL (2.7-4.5)
[2021-06-29 18:18] LABS: ABG Base Excess -15 mEq/L (-2 to 3); ABG HCO3 12 mEq/L (21-27); ABG Oxygen Saturation 100 % (95-98); ABG PCO2 34 mmHg (35-45); ABG PH 7.17 pH Units (7.32-7.45); ABG PO2 474 mmHg (85-104); ABG TCO2 13 mEq/L (20-26); Blood Gas Modality ASSIST CONTROL; Blood Gas VT 420 cc
[2021-06-29] MEDS ORDERED: Amiodarone Premix 150 MG/100 ML BAG IVPB ONE ×2 (18:41→18:43)
[2021-06-29] MEDS ORDERED: Amiodarone Premix 360 MG/200 ML BAG IVC ONE ×2 (18:41→18:43)
[2021-06-29] MEDS: Phenylephrine 50 MG in 0.9 % Sodium Chloride 250 ML IVC SCH ×2 (18:47→23:12)
[2021-06-29] MEDS: Budesonide/Formoterol 160/4.5 1 PUFF INH IH SCH (20:12)
[2021-06-29] MEDS: Chlorhexidine Rinse 15 ML MOUTHWASH MM SCH (20:15)
[2021-06-29 20:23] LABS: ABG Base Excess -14 mEq/L (-2 to 3); ABG HCO3 14 mEq/L (21-27); ABG Oxygen Saturation 100 % (95-98); ABG PCO2 38 mmHg (35-45); ABG PH 7.17 pH Units (7.32-7.45); ABG PO2 503 mmHg (85-104); ABG TCO2 15 mEq/L (20-26); Blood Gas Modality ASSIST CONTROL; Blood Gas VT 420 cc
[2021-06-29 20:38] LABS: Hematocrit 38.8 % (35.3-44.9)
[2021-06-29 20:39] LABS: Hemoglobin 13.1 g/dL (11.5-15.4)
[2021-06-29 20:41] LABS: VBG Ionized Calcium 1.17 mmol/L (1.15-1.35)
[2021-06-29 21:04] LABS: Calcium 7.7 mg/dL (8.6-10.3); Magnesium 1.5 mg/dL (1.6-2.6); Phosphorous 2.2 mg/dL (2.7-4.5); Potassium 2.9 mEq/L (3.5-5.1)
[2021-06-29] MEDS ORDERED: Insulin Human Regular 250 UNIT in 0.9 % Sodium Chloride 247.5 ML IVC SCH (22:00)
[2021-06-29] MEDS ORDERED: Cefepime HCl 2,000 MG in Water for inj. (sterile) 20 ML IVP SCH (23:00)
[2021-06-30] MEDS ORDERED: Ringer's Solution, Lactated 250 ML IV.SOLN IVPB ONE
[2021-06-30] MEDS: Amiodarone Premix 360 MG/200 ML BAG IVC SCH ×2 (01:01→12:40)
[2021-06-30] MEDS: Dexmedetomidine HCl 400 MCG/100 ML MLS IVC SCH ×3 (01:01→15:32)
[2021-06-30] MEDS: D5% in 0.45% NACL w KCl 20 MEQ/1,000 ML MLS IVC PRN (01:10)
[2021-06-30] MEDS: Albumin Human 5% 12.5 GM/250 ML IV.SOLN IVC SCH (01:15)
[2021-06-30] MEDS ORDERED: Furosemide 20 MG/2 ML VIAL IVP ONE (01:42)
[2021-06-30] MEDS: 0.9 % Sodium Chloride w KCl 20 MEQ/1,000 ML MLS IVC SCH ×6 (02:07→06:50)
[2021-06-30 02:34] LABS: VBG Ionized Calcium 1.17 mmol/L (1.15-1.35)
[2021-06-30 02:45] LABS: Basophils % 0.2 %; Mean Corpuscular Volume 90.9 fL (83.0-100.0); Red Cell Distribution Width 13.5 % (11.5-14.5); Segmented Neutrophils % 80.9 %
[2021-06-30 02:47] LABS: Hematocrit 35.8 % (35.3-44.9); Immature Granulocytes % 1.3 % (0-4); Immature Platelets 12.8 % (1.1-6.1); Lymphocytes % 11.2 %; Mean Corpuscular HGB Conc 33.5 g/dL (31.6-35.5); Mean Corpuscular Hemoglobin 30.5 pg (28.0-33.3); Mean Platelet Volume 12.5 fL (9.4-12.4); Monocytes # 1.1 K/mcL (0.0-1.3); Monocytes % 6.4 %; Neutrophils # 14.2 K/mcL (1.6-8.9); Platelet Count 196 K/mcL (140-400); Red Blood Count 3.94 M/mcL (3.82-4.97); White Blood Count 17.6 K/mcL (4.3-11.1)
[2021-06-30] MEDS: Pantoprazole 40 MG in 0.9 % Sodium Chloride Mini Bag 100 ML IVC SCH ×4 (02:47→21:06)
[2021-06-30] MEDS: Norepinephrine 4 MG/254 ML IV.SOLN IVC SCH ×3 (02:47→22:03)
[2021-06-30 02:51] LABS: Calcium 7.6 mg/dL (8.6-10.3); Magnesium 1.8 mg/dL (1.6-2.6); Phosphorous 1.2 mg/dL (2.7-4.5); Potassium 3.1 mEq/L (3.5-5.1)
[2021-06-30] MEDS: Artificial Tears SOLN 15 ML BOTTLE BOTH EYES SCH ×5 (03:19→20:48)
[2021-06-30 03:44] LABS: ABG Base Excess -10 mEq/L (-2 to 3); ABG HCO3 15 mEq/L (21-27); ABG Oxygen Saturation 99 % (95-98); ABG PCO2 28 mmHg (35-45); ABG PH 7.33 pH Units (7.32-7.45); ABG PO2 163 mmHg (85-104); ABG TCO2 16 mEq/L (20-26); Blood Gas Modality ASSIST CONTROL; Blood Gas VT 420 cc
[2021-06-30] MEDS: Phenylephrine 50 MG in 0.9 % Sodium Chloride 250 ML IVC SCH ×4 (04:41→21:28)
[2021-06-30] MEDS: Budesonide/Formoterol 160/4.5 1 PUFF INH IH SCH ×2 (07:38→20:34)
[2021-06-30] MEDS: Chlorhexidine Rinse 15 ML MOUTHWASH MM SCH ×2 (07:58→21:07)
[2021-06-30] MEDS: Piperacillin/Tazobactam 3.375 GM in 0.9 % Sodium Chloride Mini Bag 100 ML IVPB SCH ×2 (07:58→15:29)
[2021-06-30] MEDS ORDERED: 0.9 % Sodium Chloride 500 ML IVC PRN (08:48)
[2021-06-30] MEDS ORDERED: D5% in Water 1,000 ML IVC PRN (10:19)
[2021-06-30] MEDS ORDERED: Dextrose Gel 15 GM/37.5 ML TUBE PO PRN ×2 (10:19)
[2021-06-30] MEDS ORDERED: *HR* Dextrose 50 % in Water (Syg) 50 ML SYRINGE IVP PRN (10:19)
[2021-06-30] MEDS: FentaNYL (PF) 1,000 MCG/100 ML IV.SOLN IVC SCH ×2 (10:20→19:10)
[2021-06-30] MEDS: Insulin LISPRO 300 UNITS/3 ML VIAL SUBQ SCH ×3 (11:37→20:49)
[2021-06-30 15:13] LABS: VBG Ionized Calcium 1.14 mmol/L (1.15-1.35)
[2021-06-30 15:25] LABS: Calcium 7.6 mg/dL (8.6-10.3); Magnesium 2.2 mg/dL (1.6-2.6); Phosphorous 1.2 mg/dL (2.7-4.5); Potassium 4.2 mEq/L (3.5-5.1)
[2021-06-30] MEDS: Vasopressin 40 UNIT in D5% in Water 100 ML IVC SCH (20:33)
[2021-06-30] MEDS ORDERED: Ringers Solution, Lactated 500 ML IVC ONE (21:29)
[2021-06-30 23:33] LABS: Bacteria,Urine Few per hpf (None-Few); Bilirubin,Urine Negative (Negative); Blood,Urine Small (Negative); Budding Yeast,Urine Few per hpf (None Seen); Clarity,Urine Ex.Turbid (Clear); Color,Urine Yellow (Yellow); Glucose,Urine (UA) 500 mg/dL (Normal); Granular Casts,Urine Moderate per lpf (None Seen); Hyaline Casts,Urine Many per lpf (None Seen); Ketones,Urine 40 mg/dL (Negative); Leukocyte Esterase,Urine Negative (Negative); Mucus,Urine Few per lpf (None-Few); Nitrite,Urine Negative (Negative); PH,Urine 5.5 pH Units (5.0-8.0); Protein,Urine 70 mg/dL (Neg-Trace); RBC,Urine 0-3 per hpf (0-3); Specific Gravity,Urine 1.017 (1.010-1.025); Squamous Epithelial Cell,Urine Few per hpf (None-Few); Urobilinogen,Urine Normal (Normal)
[2021-07-01] MEDS: Dexmedetomidine HCl 400 MCG/100 ML MLS IVC SCH ×4 (00:03→18:17)
[2021-07-01] MEDS: Piperacillin/Tazobactam 3.375 GM in 0.9 % Sodium Chloride Mini Bag 100 ML IVPB SCH ×3 (00:03→15:59)
[2021-07-01] MEDS: Artificial Tears SOLN 15 ML BOTTLE BOTH EYES SCH ×6 (00:06→20:40)
[2021-07-01] MEDS: Insulin LISPRO 300 UNITS/3 ML VIAL SUBQ SCH (00:06)
[2021-07-01] MEDS ORDERED: Ringers Solution, Lactated 1,000 ML IVC SCH (00:15)
[2021-07-01] MEDS: Ringers Solution, Lactated 1,000 ML IVC SCH ×3 (00:27→03:21)
[2021-07-01] MEDS: Vancomycin 1,500 MG/265 ML IV.SOLN IVPB SCH ×2 (01:14→22:33)
[2021-07-01] MEDS: Amiodarone Premix 360 MG/200 ML BAG IVC SCH ×2 (01:44→12:41)
[2021-07-01] MEDS: Pantoprazole 40 MG VIAL IVP SCH ×2 (02:39→17:07)
[2021-07-01] MEDS: Phenylephrine 50 MG in 0.9 % Sodium Chloride 250 ML IVC SCH ×2 (03:00→14:10)
[2021-07-01] MEDS: Norepinephrine 4 MG/254 ML IV.SOLN IVC SCH ×3 (03:00→12:43)
[2021-07-01 04:33] LABS: ABG Base Excess -11 mEq/L (-2 to 3); ABG HCO3 15 mEq/L (21-27); ABG Oxygen Saturation 99 % (95-98); ABG PCO2 29 mmHg (35-45); ABG PH 7.31 pH Units (7.32-7.45); ABG PO2 148 mmHg (85-104); ABG TCO2 15 mEq/L (20-26); Blood Gas Modality ASSIST CONTROL; Blood Gas VT 450 cc
[2021-07-01] MEDS ORDERED: *HR* Metoprolol 5 MG/5 ML VIAL IVP ONE (04:49)
[2021-07-01 05:04] LABS: VBG Ionized Calcium 1.17 mmol/L (1.15-1.35)
[2021-07-01 05:18] LABS: Calcium 7.3 mg/dL (8.6-10.3); Magnesium 1.9 mg/dL (1.6-2.6); Phosphorous 2.6 mg/dL (2.7-4.5); Potassium 3.7 mEq/L (3.5-5.1)
[2021-07-01 05:23] LABS: Basophils % 0.2 %; Eosinophils % 0.1 %; Hematocrit 32.6 % (35.3-44.9); Hemoglobin 10.8 g/dL (11.5-15.4); Immature Granulocytes % 1.2 % (0-4); Lymphocytes # 1.8 K/mcL (0.6-4.6); Lymphocytes % 13.9 %; Mean Corpuscular HGB Conc 33.1 g/dL (31.6-35.5); Mean Corpuscular Hemoglobin 30.4 pg (28.0-33.3); Mean Corpuscular Volume 91.8 fL (83.0-100.0); Mean Platelet Volume 13.4 fL (9.4-12.4); Monocytes # 0.5 K/mcL (0.0-1.3); Monocytes % 3.8 %; Platelet Count 146 K/mcL (140-400); Red Blood Count 3.55 M/mcL (3.82-4.97); Red Cell Distribution Width 14.4 % (11.5-14.5); Segmented Neutrophils % 80.8 %; White Blood Count 12.9 K/mcL (4.3-11.1)
[2021-07-01 05:37] LABS: Neutrophils # 10.4 K/mcL (1.6-8.9)
[2021-07-01] MEDS: Vasopressin 40 UNIT in D5% in Water 100 ML IVC SCH (05:45)
[2021-07-01] MEDS: FentaNYL (PF) 1,000 MCG/100 ML IV.SOLN IVC SCH ×2 (06:15→15:10)
[2021-07-01 06:56] LABS: Platelet Estimate Normal (Normal); Poikilocytosis 1+ (Not Present)
[2021-07-01] MEDS ORDERED: Perflutren Lipid Microsphere 1.3 ML in 0.9 % Sodium Chloride 8.7 ML IVP PRN (07:16)
[2021-07-01] MEDS: Budesonide/Formoterol 160/4.5 1 PUFF INH IH SCH ×2 (07:45→20:12)
[2021-07-01] MEDS: Chlorhexidine Rinse 15 ML MOUTHWASH MM SCH ×2 (08:49→20:41)
[2021-07-01] MEDS ORDERED: NOREPINEPHRINE IVC SCH (15:00)
[2021-07-01 16:13] LABS: Magnesium 2.2 mg/dL (1.6-2.6); Potassium 4.3 mEq/L (3.5-5.1)
[2021-07-01] MEDS: SODIUM CHLORIDE IVC SCH (17:42)
[2021-07-01] MEDS: NOREPINEPHRINE IVC SCH (17:42)
[2021-07-02] MEDS: FentaNYL (PF) 1,000 MCG/100 ML IV.SOLN IVC SCH ×3 (00:50→17:13)
[2021-07-02] MEDS: Amiodarone Premix 360 MG/200 ML BAG IVC SCH ×2 (00:50→13:09)
[2021-07-02] MEDS: Artificial Tears SOLN 15 ML BOTTLE BOTH EYES SCH ×7 (00:50→23:58)
[2021-07-02] MEDS: Dexmedetomidine HCl 400 MCG/100 ML MLS IVC SCH ×3 (00:52→13:00)
[2021-07-02] MEDS: Piperacillin/Tazobactam 3.375 GM in 0.9 % Sodium Chloride Mini Bag 100 ML IVPB SCH ×4 (00:53→23:58)
[2021-07-02] MEDS: Vasopressin 40 UNIT in D5% in Water 100 ML IVC SCH (03:43)
[2021-07-02 03:45] LABS: Basophils % 0.2 %; Eosinophils % 0.4 %; Mean Platelet Volume 13.4 fL (9.4-12.4)
[2021-07-02 03:47] LABS: Eosinophils # 0.1 K/mcL (0.0-0.6); Hematocrit 34.4 % (35.3-44.9); Hemoglobin 11.1 g/dL (11.5-15.4); Immature Platelets 13.5 % (1.1-6.1); Lymphocytes # 2.1 K/mcL (0.6-4.6); Lymphocytes % 15.5 %; Mean Corpuscular HGB Conc 32.3 g/dL (31.6-35.5); Mean Corpuscular Hemoglobin 29.7 pg (28.0-33.3); Monocytes # 0.8 K/mcL (0.0-1.3); Monocytes % 5.4 %; Neutrophils # 10.7 K/mcL (1.6-8.9); Platelet Count 151 K/mcL (140-400); Red Blood Count 3.74 M/mcL (3.82-4.97); Red Cell Distribution Width 14.7 % (11.5-14.5); Segmented Neutrophils % 77.5 %; White Blood Count 13.8 K/mcL (4.3-11.1)
[2021-07-02 03:57] LABS: Calcium 7.8 mg/dL (8.6-10.3); Potassium 4.5 mEq/L (3.5-5.1)
[2021-07-02] MEDS ORDERED: *HR* Metoprolol 5 MG/5 ML VIAL IVP ONE (04:13)
[2021-07-02 04:39] LABS: Platelet Estimate Normal (Normal)
[2021-07-02 04:47] LABS: ABG Base Excess -10 mEq/L (-2 to 3); ABG HCO3 15 mEq/L (21-27); ABG Oxygen Saturation 98 % (95-98); ABG PCO2 26 mmHg (35-45); ABG PH 7.35 pH Units (7.32-7.45); ABG PO2 108 mmHg (85-104); ABG TCO2 15 mEq/L (20-26); Blood Gas Modality ASSIST CONTROL; Blood Gas VT 450 cc
[2021-07-02] MEDS: Pantoprazole 40 MG VIAL IVP SCH ×2 (05:19→17:13)
[2021-07-02] MEDS: Budesonide/Formoterol 160/4.5 1 PUFF INH IH SCH ×2 (07:34→20:41)
[2021-07-02] MEDS: Chlorhexidine Rinse 15 ML MOUTHWASH MM SCH ×2 (09:10→19:36)
[2021-07-02 09:38] LABS: VBG HCO3 18 mEq/L (21-27); VBG PCO2 41 mmHg (41-51); VBG PH 7.25 pH Units (7.32-7.42); VBG PO2 38 mmHg (25-50)
[2021-07-02 10:04] LABS: Calcium 7.9 mg/dL (8.6-10.3); Magnesium 2.1 mg/dL (1.6-2.6); Phosphorous 3.3 mg/dL (2.7-4.5)
[2021-07-02] MEDS: NOREPINEPHRINE IVC SCH (13:10)
[2021-07-02] MEDS: SODIUM CHLORIDE IVC SCH (13:10)
[2021-07-02] MEDS ORDERED: Acetaminophen IV 1,000 MG/100 ML BAG IVPB ONE ×2 (14:23→16:00)
[2021-07-03] MEDS: Amiodarone Premix 360 MG/200 ML BAG IVC SCH ×2 (01:29→13:28)
[2021-07-03] MEDS: Artificial Tears SOLN 15 ML BOTTLE BOTH EYES SCH ×6 (03:48→23:44)
[2021-07-03 04:13] LABS: Basophils % 0.3 %; Eosinophils # 0.2 K/mcL (0.0-0.6); Eosinophils % 1.1 %; Hematocrit 32.3 % (35.3-44.9); Hemoglobin 10.9 g/dL (11.5-15.4); Immature Granulocytes % 1.5 % (0-4); Lymphocytes # 1.8 K/mcL (0.6-4.6); Lymphocytes % 12.2 %; Mean Corpuscular HGB Conc 33.7 g/dL (31.6-35.5); Mean Corpuscular Hemoglobin 31.7 pg (28.0-33.3); Mean Corpuscular Volume 93.9 fL (83.0-100.0); Mean Platelet Volume 12.9 fL (9.4-12.4); Monocytes # 0.9 K/mcL (0.0-1.3); Monocytes % 5.9 %; Platelet Count 153 K/mcL (140-400); Red Blood Count 3.44 M/mcL (3.82-4.97); Red Cell Distribution Width 15.3 % (11.5-14.5); White Blood Count 14.5 K/mcL (4.3-11.1)
[2021-07-03 04:29] LABS: Neutrophils # 11.5 K/mcL (1.6-8.9)
[2021-07-03] MEDS: FentaNYL (PF) 1,000 MCG/100 ML IV.SOLN IVC SCH (04:30)
[2021-07-03 04:33] LABS: Calcium 7.9 mg/dL (8.6-10.3); Magnesium 2.1 mg/dL (1.6-2.6); Phosphorous 3.4 mg/dL (2.7-4.5); Potassium 3.8 mEq/L (3.5-5.1)
[2021-07-03 04:47] LABS: ABG Base Excess -8 mEq/L (-2 to 3); ABG HCO3 17 mEq/L (21-27); ABG Oxygen Saturation 99 % (95-98); ABG PCO2 30 mmHg (35-45); ABG PH 7.36 pH Units (7.32-7.45); ABG PO2 133 mmHg (85-104); ABG TCO2 18 mEq/L (20-26); Blood Gas Modality ASSIST CONTROL; Blood Gas VT 450 cc
[2021-07-03 04:51] LABS: Platelet Estimate Normal (Normal)
[2021-07-03] MEDS: Pantoprazole 40 MG VIAL IVP SCH ×2 (06:24→17:47)
[2021-07-03] MEDS: Piperacillin/Tazobactam 3.375 GM in 0.9 % Sodium Chloride Mini Bag 100 ML IVPB SCH (07:37)
[2021-07-03] MEDS: Chlorhexidine Rinse 15 ML MOUTHWASH MM SCH ×2 (07:37→19:48)
[2021-07-03] MEDS: Budesonide/Formoterol 160/4.5 1 PUFF INH IH SCH ×2 (08:43→19:45)
[2021-07-03] MEDS: Vasopressin 40 UNIT in D5% in Water 100 ML IVC SCH (09:58)
[2021-07-03] MEDS ORDERED: Vancomycin 1 EACH in 0.9 % Sodium Chloride 250 ML IVPB PRN (15:00)
[2021-07-03] MEDS: Ampicillin 2,000 MG in 0.9 % Sodium Chloride Mini Bag 100 ML IVPB SCH ×2 (15:05→21:53)
[2021-07-03] MEDS: Dexamethasone Sodium Phos/PF 10 MG/ML VIAL IVP SCH ×2 (15:06→19:47)
[2021-07-03] MEDS: cefTRIAXone 2,000 MG in Water for inj. (sterile) 20 ML IVP SCH (15:47)
[2021-07-03] MEDS: SODIUM CHLORIDE IVC SCH (16:45)
[2021-07-03] MEDS: NOREPINEPHRINE IVC SCH (16:45)
[2021-07-03] MEDS ORDERED: cefTRIAXone 2,000 MG in 0.9 % Sodium Chloride Mini Bag 100 ML IVPB SCH (18:00)
[2021-07-03] MEDS: D5 IVPB SCH (19:46)
[2021-07-03] MEDS: WATER IVPB SCH (19:46)
[2021-07-03] MEDS: ACYCLOVIR IVPB SCH (19:46)
[2021-07-03] MEDS: Insulin LISPRO 300 UNITS/3 ML VIAL SUBQ SCH ×2 (19:48→23:44)
[2021-07-04] MEDS: FentaNYL (PF) 1,000 MCG/100 ML IV.SOLN IVC SCH ×3 (01:45→17:22)
[2021-07-04 03:55] LABS: Mean Platelet Volume 12.7 fL (9.4-12.4)
[2021-07-04 03:57] LABS: Basophils # 0.1 K/mcL (0.0-0.2); Basophils % 1.7 %; Eosinophils # 0.1 K/mcL (0.0-0.6); Eosinophils % 0.8 %; Hematocrit 30.9 % (35.3-44.9); Hemoglobin 9.9 g/dL (11.5-15.4); Immature Granulocytes % 7.2 % (0-4); Immature Platelets 8.5 % (1.1-6.1); Lymphocytes # 0.7 K/mcL (0.6-4.6); Lymphocytes % 8.4 %; Mean Corpuscular Hemoglobin 30.2 pg (28.0-33.3); Mean Corpuscular Volume 94.2 fL (83.0-100.0); Monocytes # 0.6 K/mcL (0.0-1.3); Neutrophils # 6.2 K/mcL (1.6-8.9); Platelet Count 142 K/mcL (140-400); Red Blood Count 3.28 M/mcL (3.82-4.97); Red Cell Distribution Width 15.5 % (11.5-14.5); Segmented Neutrophils % 74.9 %; White Blood Count 8.3 K/mcL (4.3-11.1)
[2021-07-04] MEDS: Artificial Tears SOLN 15 ML BOTTLE BOTH EYES SCH ×6 (04:01→23:51)
[2021-07-04] MEDS: Amiodarone Premix 360 MG/200 ML BAG IVC SCH (04:01)
[2021-07-04] MEDS: Insulin LISPRO 300 UNITS/3 ML VIAL SUBQ SCH ×6 (04:02→23:51)
[2021-07-04 04:04] LABS: VBG Ionized Calcium 1.19 mmol/L (1.15-1.35)
[2021-07-04] MEDS: Dexamethasone Sodium Phos/PF 10 MG/ML VIAL IVP SCH ×4 (04:05→19:36)
[2021-07-04] MEDS: cefTRIAXone 2,000 MG in Water for inj. (sterile) 20 ML IVP SCH ×2 (04:05→15:11)
[2021-07-04 04:11] LABS: Calcium 7.9 mg/dL (8.6-10.3); Phosphorous 3.7 mg/dL (2.7-4.5); Potassium 3.9 mEq/L (3.5-5.1)
[2021-07-04] MEDS: Ampicillin 2,000 MG in 0.9 % Sodium Chloride Mini Bag 100 ML IVPB SCH ×4 (04:13→20:40)
[2021-07-04 04:22] LABS: ABG Base Excess -9 mEq/L (-2 to 3); ABG HCO3 15 mEq/L (21-27); ABG Oxygen Saturation 99 % (95-98); ABG PCO2 24 mmHg (35-45); ABG PO2 128 mmHg (85-104); ABG TCO2 16 mEq/L (20-26); Blood Gas VT 450 cc
[2021-07-04 04:23] LABS: Platelet Estimate Normal (Normal)
[2021-07-04] MEDS: Pantoprazole 40 MG VIAL IVP SCH ×2 (05:59→16:23)
[2021-07-04] MEDS: Budesonide/Formoterol 160/4.5 1 PUFF INH IH SCH ×2 (07:22→20:05)
[2021-07-04] MEDS: D5 IVPB SCH ×2 (07:52→17:23)
[2021-07-04] MEDS: ACYCLOVIR IVPB SCH ×2 (07:52→17:23)
[2021-07-04] MEDS: WATER IVPB SCH ×2 (07:52→17:23)
[2021-07-04] MEDS: Chlorhexidine Rinse 15 ML MOUTHWASH MM SCH ×2 (07:53→19:35)
[2021-07-04] MEDS: *HR* Amiodarone 200 MG TABLET PO SCH ×2 (09:37→19:36)
[2021-07-04] MEDS ORDERED: Insulin DETEMIR 100 UNIT/ML X5UNITS SUBQ ONE (12:00)
[2021-07-04] MEDS: Vasopressin 40 UNIT in D5% in Water 100 ML IVC SCH (12:01)
[2021-07-04] MEDS ORDERED: Vancomycin 500 MG in 0.9 % Sodium Chloride Mini Bag 100 ML IVPB ONE (13:00)
[2021-07-04] MEDS: NOREPINEPHRINE IVC SCH (17:26)
[2021-07-04] MEDS: Phenylephrine 50 MG in 0.9 % Sodium Chloride 250 ML IVC SCH (17:26)
[2021-07-04] MEDS: SODIUM CHLORIDE IVC SCH (17:26)
[2021-07-04] MEDS: Insulin DETEMIR 100 UNIT/ML X5UNITS SUBQ SCH (20:39)
[2021-07-05] MEDS: FentaNYL (PF) 1,000 MCG/100 ML IV.SOLN IVC SCH (01:10)
[2021-07-05] MEDS: Ampicillin 2,000 MG in 0.9 % Sodium Chloride Mini Bag 100 ML IVPB SCH ×4 (03:41→20:26)
[2021-07-05] MEDS: Dexamethasone Sodium Phos/PF 10 MG/ML VIAL IVP SCH ×4 (03:41→20:26)
[2021-07-05] MEDS: Artificial Tears SOLN 15 ML BOTTLE BOTH EYES SCH ×6 (03:42→23:37)
[2021-07-05] MEDS: cefTRIAXone 2,000 MG in Water for inj. (sterile) 20 ML IVP SCH ×2 (03:42→16:39)
[2021-07-05] MEDS: Insulin LISPRO 300 UNITS/3 ML VIAL SUBQ SCH ×6 (03:45→23:37)
[2021-07-05 03:51] LABS: VBG Ionized Calcium 1.24 mmol/L (1.15-1.35)
[2021-07-05 04:00] LABS: Hematocrit 26.9 % (35.3-44.9); Hemoglobin 8.9 g/dL (11.5-15.4); Mean Corpuscular HGB Conc 33.1 g/dL (31.6-35.5); Mean Corpuscular Hemoglobin 30.6 pg (28.0-33.3); Mean Corpuscular Volume 92.4 fL (83.0-100.0); Mean Platelet Volume 12.7 fL (9.4-12.4); Platelet Count 144 K/mcL (140-400); Red Blood Count 2.91 M/mcL (3.82-4.97); Red Cell Distribution Width 15.1 % (11.5-14.5); White Blood Count 7.5 K/mcL (4.3-11.1)
[2021-07-05 04:15] LABS: Calcium 8.3 mg/dL (8.6-10.3); Phosphorous 2.6 mg/dL (2.7-4.5)
[2021-07-05 04:30] LABS: ABG Base Excess -7 mEq/L (-2 to 3); ABG HCO3 16 mEq/L (21-27); ABG Oxygen Saturation 99 % (95-98); ABG PCO2 23 mmHg (35-45); ABG PH 7.44 pH Units (7.32-7.45); ABG PO2 122 mmHg (85-104); ABG TCO2 17 mEq/L (20-26); Blood Gas VT 450 cc
[2021-07-05] MEDS: WATER IVPB SCH ×2 (05:28→16:40)
[2021-07-05] MEDS: ACYCLOVIR IVPB SCH ×2 (05:28→16:40)
[2021-07-05] MEDS: D5 IVPB SCH ×2 (05:28→16:40)
[2021-07-05] MEDS: Pantoprazole 40 MG VIAL IVP SCH ×2 (05:30→16:40)
[2021-07-05] MEDS: Chlorhexidine Rinse 15 ML MOUTHWASH MM SCH ×2 (07:40→20:26)
[2021-07-05] MEDS: *HR* Amiodarone 200 MG TABLET PO SCH ×2 (07:40→20:45)
[2021-07-05] MEDS: Insulin DETEMIR 100 UNIT/ML X5UNITS SUBQ SCH ×2 (07:41→20:56)
[2021-07-05] MEDS: Budesonide/Formoterol 160/4.5 1 PUFF INH IH SCH ×2 (07:43→20:03)
[2021-07-05 16:33] LABS: Red Blood Cell,CSF < 2000 RBC/mcL
[2021-07-05 17:18] LABS: Eosinophils,CSF 0 %; Lymphocytes,CSF 73.3 %; Monocytes,CSF 26.7 %
[2021-07-05 17:19] LABS: Basophils,CSF 0 %
[2021-07-05 17:21] LABS: Appearance,CSF Clear (Clear)
[2021-07-05 18:06] LABS: Glucose,CSF 156 mg/dL (40-70); Total Protein,CSF 138 mg/dL (15-45)
[2021-07-05] MEDS: Phenylephrine 50 MG in 0.9 % Sodium Chloride 250 ML IVC SCH (20:46)
[2021-07-05] MEDS: Vasopressin 40 UNIT in D5% in Water 100 ML IVC SCH ×2 (20:46→20:47)
[2021-07-05] MEDS: Dexmedetomidine HCl 400 MCG/100 ML MLS IVC SCH (20:46)
[2021-07-05] MEDS: NOREPINEPHRINE IVC SCH (20:46)
[2021-07-05] MEDS: SODIUM CHLORIDE IVC SCH (20:46)
[2021-07-06] MEDS: Insulin LISPRO 300 UNITS/3 ML VIAL SUBQ SCH ×6 (03:33→23:29)
[2021-07-06] MEDS: Artificial Tears SOLN 15 ML BOTTLE BOTH EYES SCH ×6 (03:33→23:28)
[2021-07-06] MEDS: Dexamethasone Sodium Phos/PF 10 MG/ML VIAL IVP SCH ×4 (03:53→20:01)
[2021-07-06] MEDS: Ampicillin 2,000 MG in 0.9 % Sodium Chloride Mini Bag 100 ML IVPB SCH ×4 (03:53→21:26)
[2021-07-06] MEDS: cefTRIAXone 2,000 MG in Water for inj. (sterile) 20 ML IVP SCH ×2 (03:54→15:35)
[2021-07-06 04:49] LABS: Basophils % 0.3 %; Hematocrit 28.7 % (35.3-44.9); Hemoglobin 9.6 g/dL (11.5-15.4); Immature Granulocytes % 2.4 % (0-4); Lymphocytes # 1.1 K/mcL (0.6-4.6); Lymphocytes % 8.7 %; Mean Corpuscular HGB Conc 33.4 g/dL (31.6-35.5); Mean Corpuscular Hemoglobin 30.9 pg (28.0-33.3); Mean Corpuscular Volume 92.3 fL (83.0-100.0); Mean Platelet Volume 12.4 fL (9.4-12.4); Monocytes # 0.8 K/mcL (0.0-1.3); Monocytes % 6.5 %; Neutrophils # 10.2 K/mcL (1.6-8.9); Nucleated Red Blood Cells 0.3 /100 WBC (0); Platelet Count 247 K/mcL (140-400); Red Blood Count 3.11 M/mcL (3.82-4.97); Red Cell Distribution Width 15.2 % (11.5-14.5); Segmented Neutrophils % 82.1 %
[2021-07-06 04:51] LABS: White Blood Count 12.4 K/mcL (4.3-11.1)
[2021-07-06 05:06] LABS: Calcium 8.3 mg/dL (8.6-10.3); Magnesium 2.1 mg/dL (1.6-2.6); Phosphorous 3.7 mg/dL (2.7-4.5); Potassium 3.7 mEq/L (3.5-5.1)
[2021-07-06 05:17] LABS: Anisocytosis 1+ (Not Present); Platelet Estimate Normal (Normal); Toxic Granulation Present (Not Present)
[2021-07-06 05:19] LABS: ABG Base Excess -6 mEq/L (-2 to 3); ABG HCO3 17 mEq/L (21-27); ABG Oxygen Saturation 99 % (95-98); ABG PCO2 25 mmHg (35-45); ABG PH 7.43 pH Units (7.32-7.45); ABG PO2 113 mmHg (85-104); ABG TCO2 18 mEq/L (20-26); Blood Gas VT 450 cc
[2021-07-06] MEDS: ACYCLOVIR IVPB SCH ×2 (05:42→17:53)
[2021-07-06] MEDS: WATER IVPB SCH ×2 (05:42→17:53)
[2021-07-06] MEDS: D5 IVPB SCH ×2 (05:42→17:53)
[2021-07-06] MEDS: Pantoprazole 40 MG VIAL IVP SCH ×2 (05:43→17:53)
[2021-07-06] MEDS: Budesonide/Formoterol 160/4.5 1 PUFF INH IH SCH ×2 (08:04→19:53)
[2021-07-06] MEDS: Insulin DETEMIR 100 UNIT/ML X5UNITS SUBQ SCH ×2 (09:41→20:04)
[2021-07-06] MEDS: *HR* Amiodarone 200 MG TABLET PO SCH ×2 (09:42→20:00)
[2021-07-06] MEDS: Chlorhexidine Rinse 15 ML MOUTHWASH MM SCH ×2 (09:42→20:00)
[2021-07-06] MEDS: Dexmedetomidine HCl 400 MCG/100 ML MLS IVC SCH (11:39)
[2021-07-06 12:00] LABS: Complement C3 123 mg/dL (87-200)
[2021-07-06] MEDS: NOREPINEPHRINE IVC SCH (15:36)
[2021-07-06] MEDS: SODIUM CHLORIDE IVC SCH (15:36)
[2021-07-06] MEDS: Phenylephrine 50 MG in 0.9 % Sodium Chloride 250 ML IVC SCH (17:54)
[2021-07-06] MEDS: Vasopressin 40 UNIT in D5% in Water 100 ML IVC SCH (23:27)
[2021-07-06] MEDS: FentaNYL (PF) 1,000 MCG/100 ML IV.SOLN IVC SCH (23:28)
[2021-07-07] MEDS: FentaNYL (PF) 1,000 MCG/100 ML IV.SOLN IVC SCH ×2 (00:29→10:21)
[2021-07-07 05:06] LABS: ABG Base Excess -7 mEq/L (-2 to 3); ABG HCO3 16 mEq/L (21-27); ABG Oxygen Saturation 99 % (95-98); ABG PCO2 24 mmHg (35-45); ABG PH 7.44 pH Units (7.32-7.45); ABG PO2 109 mmHg (85-104); ABG TCO2 17 mEq/L (20-26); Blood Gas VT 450 cc
[2021-07-07] MEDS: Artificial Tears SOLN 15 ML BOTTLE BOTH EYES SCH ×6 (05:31→23:33)
[2021-07-07] MEDS: Dexmedetomidine HCl 400 MCG/100 ML MLS IVC SCH ×2 (05:31→19:38)
[2021-07-07] MEDS: Insulin LISPRO 300 UNITS/3 ML VIAL SUBQ SCH ×5 (05:31→19:42)
[2021-07-07] MEDS: Dexamethasone Sodium Phos/PF 10 MG/ML VIAL IVP SCH ×3 (05:35→14:44)
[2021-07-07] MEDS: cefTRIAXone 2,000 MG in Water for inj. (sterile) 20 ML IVP SCH (05:35)
[2021-07-07] MEDS: WATER IVPB SCH ×2 (05:36→17:23)
[2021-07-07] MEDS: ACYCLOVIR IVPB SCH ×2 (05:36→17:23)
[2021-07-07] MEDS: D5 IVPB SCH ×2 (05:36→17:23)
[2021-07-07] MEDS: Pantoprazole 40 MG VIAL IVP SCH ×2 (05:36→17:19)
[2021-07-07] MEDS: Ampicillin 2,000 MG in 0.9 % Sodium Chloride Mini Bag 100 ML IVPB SCH ×2 (05:36→09:01)
[2021-07-07 06:41] LABS: Hematocrit 29.4 % (35.3-44.9); Hemoglobin 9.7 g/dL (11.5-15.4); Mean Corpuscular Hemoglobin 30.7 pg (28.0-33.3); Mean Platelet Volume 11.6 fL (9.4-12.4); Nucleated Red Blood Cells 0.9 /100 WBC (0); Platelet Count 278 K/mcL (140-400); Red Blood Count 3.16 M/mcL (3.82-4.97); White Blood Count 15.1 K/mcL (4.3-11.1)
[2021-07-07 07:05] LABS: Calcium 8.2 mg/dL (8.6-10.3); Magnesium 2.3 mg/dL (1.6-2.6); Potassium 3.5 mEq/L (3.5-5.1)
[2021-07-07 07:34] LABS: Lymphocytes # 1.7 K/mcL (0.6-4.6); Monocytes # 1.2 K/mcL (0.0-1.3); Neutrophils # 12.2 K/mcL (1.6-8.9)
[2021-07-07 07:35] LABS: Platelet Estimate Normal (Normal); Toxic Granulation Present (Not Present)
[2021-07-07 07:36] LABS: Polychromasia 1+ (Not Present)
[2021-07-07] MEDS: Budesonide/Formoterol 160/4.5 1 PUFF INH IH SCH ×2 (07:59→19:57)
[2021-07-07] MEDS: Chlorhexidine Rinse 15 ML MOUTHWASH MM SCH ×2 (08:53→19:44)
[2021-07-07] MEDS: *HR* Amiodarone 200 MG TABLET PO SCH (08:53)
[2021-07-07] MEDS: Insulin DETEMIR 100 UNIT/ML X5UNITS SUBQ SCH ×2 (08:54→19:44)
[2021-07-07] MEDS: Sodium Bicarbonate 75 MEQ in 0.45 % Sodium Chloride 1,000 ML IVC SCH (10:30)
[2021-07-07] MEDS: *HR* Heparin 5,000 UNIT/ML VIAL SQ SCH ×2 (14:44→22:00)
[2021-07-07] MEDS: SODIUM CHLORIDE IVC SCH (17:10)
[2021-07-07] MEDS: NOREPINEPHRINE IVC SCH (17:10)
[2021-07-07] MEDS: Phenylephrine 50 MG in 0.9 % Sodium Chloride 250 ML IVC SCH (17:20)
[2021-07-08] MEDS: Insulin LISPRO 300 UNITS/3 ML VIAL SUBQ SCH ×4 (00:10→12:09)
[2021-07-08 05:11] LABS: ABG Base Excess -5 mEq/L (-2 to 3); ABG HCO3 17 mEq/L (21-27); ABG Oxygen Saturation 99 % (95-98); ABG PCO2 23 mmHg (35-45); ABG PH 7.48 pH Units (7.32-7.45); ABG PO2 138 mmHg (85-104); ABG TCO2 18 mEq/L (20-26); Blood Gas VT 450 cc
[2021-07-08] MEDS: Vasopressin 40 UNIT in D5% in Water 100 ML IVC SCH (05:37)
[2021-07-08] MEDS: Artificial Tears SOLN 15 ML BOTTLE BOTH EYES SCH ×5 (05:38→20:04)
[2021-07-08] MEDS: D5 IVPB SCH (06:12)
[2021-07-08] MEDS: ACYCLOVIR IVPB SCH (06:12)
[2021-07-08] MEDS: WATER IVPB SCH (06:12)
[2021-07-08] MEDS: *HR* Heparin 5,000 UNIT/ML VIAL SQ SCH (06:13)
[2021-07-08] MEDS: Pantoprazole 40 MG VIAL IVP SCH (06:13)
[2021-07-08 06:19] LABS: Basophils # 0.1 K/mcL (0.0-0.2); Basophils % 0.4 %; Hematocrit 31.9 % (35.3-44.9); Hemoglobin 10.2 g/dL (11.5-15.4); Immature Granulocytes % 1.9 % (0-4); Lymphocytes # 1.2 K/mcL (0.6-4.6); Lymphocytes % 8.7 %; Mean Corpuscular Hemoglobin 30.4 pg (28.0-33.3); Mean Platelet Volume 11.6 fL (9.4-12.4); Monocytes # 0.5 K/mcL (0.0-1.3); Monocytes % 3.6 %; Neutrophils # 11.3 K/mcL (1.6-8.9); Platelet Count 313 K/mcL (140-400); Red Blood Count 3.36 M/mcL (3.82-4.97); Red Cell Distribution Width 14.9 % (11.5-14.5); Segmented Neutrophils % 85.4 %; White Blood Count 13.2 K/mcL (4.3-11.1)
[2021-07-08 06:22] LABS: Mean Corpuscular Volume 94.9 fL (83.0-100.0)
[2021-07-08] MEDS: Sodium Bicarbonate 75 MEQ in 0.45 % Sodium Chloride 1,000 ML IVC SCH (06:22)
[2021-07-08 06:37] LABS: Platelet Estimate Normal (Normal)
[2021-07-08 06:38] LABS: Reactive Lymphocytes Present (Not Present); Toxic Granulation Present (Not Present)
[2021-07-08 07:15] LABS: Potassium 4.1 mEq/L (3.5-5.1)
[2021-07-08] MEDS: Budesonide/Formoterol 160/4.5 1 PUFF INH IH SCH (07:37)
[2021-07-08] MEDS: Insulin DETEMIR 100 UNIT/ML X5UNITS SUBQ SCH (07:46)
[2021-07-08] MEDS: Chlorhexidine Rinse 15 ML MOUTHWASH MM SCH (07:46)
[2021-07-08] MEDS ORDERED: *HR* Amiodarone 200 MG TABLET PO SCH (09:00)
[2021-07-08] MEDS ORDERED: Albuterol 2.5 MG/3 ML NEBULIZER IH PRN (14:32)
[2021-07-08] MEDS ORDERED: Atropine 1% Opth Drops 100 DROP/5 ML BOTTLE SL PRN ×2 (14:32→15:02)
[2021-07-08] MEDS ORDERED: *HR* LORazepam 2 MG/ML VIAL IVP PRN (14:32)
[2021-07-09] MEDS: *HR* FentaNYL (PF) 100 MCG/2 ML VIAL IVP PRN ×2 (00:31→09:14)
[2021-07-09] MEDS: Artificial Tears SOLN 15 ML BOTTLE BOTH EYES SCH ×6 (00:31→20:36)
[2021-07-09] MEDS ORDERED: *HR* LORazepam Oral Conc 2 MG/ML SL PRN (12:47)
[2021-07-09 13:58] LABS: Borrelia burgdorferi Abs CSF 0.51 LIV (<=0.99)
[2021-07-09 13:59] LABS: ANA IgG by ELISA NONE DETECTED (None Detected)
[2021-07-09] MEDS: Morphine Sulfate Oral CONC 10 MG/0.5 ML ORAL.SYG SL PRN (16:34)
[2021-07-10] MEDS: Artificial Tears SOLN 15 ML BOTTLE BOTH EYES SCH ×6 (00:28→19:58)
[2021-07-10 06:44] VITALS: O2SAT 97
[2021-07-10] MEDS: Dexmedetomidine HCl 400 MCG/100 ML MLS IVC SCH (07:27)
[2021-07-10] MEDS: *HR* Heparin 5,000 UNIT/ML VIAL SQ SCH (07:27)
[2021-07-10] MEDS: Morphine Sulfate Oral CONC 10 MG/0.5 ML ORAL.SYG SL PRN ×3 (15:03→23:07)
[2021-07-10 19:05] LABS: HSV Source CSF
[2021-07-11] MEDS: Artificial Tears SOLN 15 ML BOTTLE BOTH EYES SCH ×2 (00:19→04:34)
[2021-07-11 03:49] VITALS: BP 147/71; PULSE 75; TEMP 100.3
[2021-07-11] MEDS: Morphine Sulfate Oral CONC 10 MG/0.5 ML ORAL.SYG SL PRN (04:32)
[2021-07-11 08:49] LABS: Alpha 2 Globulin (PEP) 1.09 g/dL (0.48-1.05); Beta Globulin (PEP) 0.49 g/dL (0.48-1.10)
[2021-07-11 13:37] LABS: Immunoglobulin G 422 mg/dL (768-1632); Immunoglobulin M 91 mg/dL (35-263)
[2021-07-11 13:38] LABS: IFE Reflexed IFE Done; Immunoglobulin A 157 mg/dL (68-408)
[2021-07-11 15:02] LABS: ANCA IFA Titer <1:20 (<1:20)
[2021-07-12 12:34] LABS: ANCA IFA Pattern NONE DETECTED (None Detected); Serine Protease-3 Antibody 1 AU/mL (0-19)
== END 2021-07-11 10:03 | disposition expired | DRG 720 ==
LOC: EMEROOARM 18:09 → SUATTDRO 23:33 → ICNU 23:33 → 2NNU 06-29 12:51 → ICNU 06-29 16:22 → 2ANU 07-08 18:03
PROVIDERS: ADMIT Internal Medicine; ATTEND Internal Medicine
PROC: IRLUMPX (2021-07-05 12:00)